=== PATIENT | female | born 1975 | race Caucasian/White ===

== ENCOUNTER 2016-12-06 08:18 | Inpatient (IN) ==
[2016-12-06] MEDS ORDERED: 0.9 % Sodium Chloride 1,000 ML IVC ONE (08:28)
[2016-12-06] MEDS ORDERED: *HR* Morphine 2 MG/ML SYRINGE IVP ONE (08:28)
[2016-12-06] MEDS ORDERED: Ondansetron 4 MG/2 ML VIAL IVP ONE ×2 (08:28→13:34)
[2016-12-06 08:36] LABS: Basophils # 0.1 K/mcL (0.0-0.2); Basophils % 0.5 %; Eosinophils # 0.3 K/mcL (0.0-0.6); Eosinophils % 2.5 %; Hematocrit 40.3 % (35.3-44.9); Hemoglobin 13.9 g/dL (11.5-15.4); Immature Granulocytes % 0.7 % (0-4); Lymphocytes # 3.2 K/mcL (0.6-4.6); Mean Corpuscular HGB Conc 34.5 g/dL (31.6-35.5); Mean Corpuscular Hemoglobin 29.4 pg (28.0-33.3); Mean Corpuscular Volume 85.4 fL (83.0-100.0); Mean Platelet Volume 7.8 fL (9.4-12.4); Monocytes # 1.1 K/mcL (0.0-1.3); Monocytes % 7.7 %; Platelet Count 282 K/mcL (140-400); Red Blood Count 4.72 M/mcL (3.82-4.97); Red Cell Distribution Width 11.8 % (11.5-14.5); Segmented Neutrophils % 65.6 %
--- NOTE | 2016-12-06 08:47 | Emergency Department Note ---
Disposition Clinical Impression: RUQ abdominal pain, Elevated LFTs Disposition: Admitted As Inpatient Condition: Fair Abdominal Pain HPI - General Stated Complaint: Chest Pain Time Seen by Provider: 12/06/16 08:19 Source: patient, family Mode of arrival: private vehicle Limitations: no limitations Nursing Notes Reviewed: Yes Vital Signs Reviewed: Yes - History of Present Illness Pt Subjective Complaint: abdominal pain Onset (ago): hour(s) Consistency: constant Location: RUQ, epigastric Pain Severity: severe Pain Scale: 10 Quality: stabbing, sharp Radiation: chest Improves with: nothing Worsens with: nothing Context: history of similar episodes Associated symptoms: Reports: nausea, vomiting (once; no blood, non-bilious). Denies: diarrhea (Last BM was yesterday - normal), fever, chills, constipation, dysuria, hematemesis, hematochezia, melena, hematuria, anorexia, syncope Treatments prior to arrival: none - Related Data LMP (females 10-50): other (S/P CLARK) Home Medications Medication Instructions Recorded Confirmed Buprenorphine HCl/Naloxone HCl 1 - 2 film SL DAILY 12/06/16 12/06/16 [Suboxone 8 mg-2 mg Sl Film] Docusate Sodium [Dok] 100 mg PO BID PRN 12/06/16 12/06/16 Ibuprofen [Advil] 200 mg PO Q6H PRN 12/06/16 12/06/16 Polyethylene Glycol 3350 [MiraLAX 1 scoop PO DAILY PRN 12/06/16 12/06/16 Powder Bulk 17.9 Oz] Previous Rx's Medication Instructions Recorded Cyclobenzaprine [Flexeril] 10 mg PO BID PRN #14 tablet 05/24/16 Ondansetron ODT [Zofran ODT] 4 mg SL Q4HR PRN #10 tab.rapdis 07/01/16 Allergies Allergy/AdvReac Type Severity Reaction Status Date / Time No Known Allergies Allergy Verified 12/06/16 13:33 All systems ED: reviewed and negative except as stated. Constitutional: Denies: fever, chills, weakness ENT ED: Denies: throat pain, dysphagia Cardiovascular: Reports: as per HPI, chest pain. Denies: palpitations, dyspnea on exertion, orthopnea, edema, syncope Respiratory: Denies: cough, dyspnea, wheezes, hemoptysis, stridor, sputum production Gastrointestinal: Reports: abdominal pain, nausea, vomiting. 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 Absent: scleral icterus, conjunctival injection, periorbital swelling - ENT ENT exam: mucous membranes moist - Neck Neck exam: Present: normal inspection, full ROM, trachea midline. Absent: meningismus - Chest Chest inspection: Present: normal inspection, symmetric chest wall rise. Absent : tenderness - Respiratory Respiratory exam: Present: normal lung sounds bilaterally. Absent: respiratory distress, wheezes, stridor - Cardiovascular Cardiovascular exam: Present: normal rhythm, tachycardia, normal heart sounds - Abdominal Exam Abdominal exam: Present: soft, tenderness, diminished bowel sounds, Pantoja's sign. Absent: distention, guarding, rebound, rigidity, organomegaly, tenderness at McBurney's Point, mass, pulsatile mass Abdominal tenderness: Present: RUQ, epigastrium - Extremities Exam Extremities exam: Present: normal inspection, full ROM. Absent: pedal edema - Back Exam Back exam: Present: normal inspection, full ROM. Absent: tenderness, CVA tenderness (R), CVA tenderness (L) - Neurological Exam Neurological exam: Present: alert, oriented X3, CN II-XII intact - Psychiatric Psychiatric exam: Present: normal affect, anxious - Skin Skin exam: Present: warm, dry, intact, normal color Course Course Narrative: Patient presents from home with significant other for evalaution of RUQ pain that radiates into the chest. It began acutely around 5am and has been constant since. She has had nausea and vomited once. She states that she has chronic constipation, but had a normal BM yesterday. Last oral intake was a "deli sandwhich" around 9pm. She denies dyspnea, cough, hemoptysis, syncope, fever, chills, dysuria, hematuria, or vaginal complaints. On exam she is anxious and was initially hyperventilliating. She is mildly tachycardic - sinus tach on ECG. She has tenderness in the RUQ and epigastrium. She has no pain with deep inspiration, has had no recent surgeries, long car trips, air travel, leg pain or swelling, and denies past history of DVT or PE. She has been seen in this ER for abdominal pain - Oct. Most recent CT was Oct 23 2016. During one of her previous visits she stated that she has had chronic diarrhea since cholecystectomy, but today she states that she has chronic constipation. She also states that several months ago she was seen for abdominal pain and was told that she was "backed up" and that that was the cause of her pain. She denies Hx of obstruction. She has had a hysterectomy. Case was discussed with Dr. Bain. The patient has been seen by Dr. Bain as well. The attending recommends adding a D-dimer. Labs, ECG and meds have been ordered. Will re-assess. Repeat ECG was done because patient was shaking during first ECG. The second shows sinus rhythm; rate in the 90's. No ectopy, no elevation or depression. Chest xray is normal. Labs show elevated LFT's and D-Dimer. Results discussed with Attending Physician. She recommends CTA of chest and CT of Abd and Pelvis. CTA and CT show no acute abnormalities. Hepatitis Panel and Acetaminophen level normal / negative. Patient appeared to be having biliary colic upon arrival. Will admit for further evaluation / MRCP. Case discussed with the hospitalist. - Reevaluation(s) Reevaluation #1: chest pain better, pain "in side" continues. Nausea is better Time: 09:40 Reevaluation #2: Pain better, vitals improved, labs show elevated white blood cell count and elevated liver enzymes. Hepatitis panel is negative. Acetaminophen level is negative. Concern is for obstruction. There is mild dilatation of the common bile duct seen on the CT. We will admit to medicine for further evaluation. Time: 12:15 Vital Signs Temperature 97.7 F 12/06/16 08:20 Pulse Rate 114 12/06/16 08:20 Respiratory Rate 24 12/06/16 08:20 Blood Pressure 141/111 12/06/16 08:20 O2 Sat by Pulse Oximetry 100 12/06/16 08:20 Temperature 97.7 F 12/06/16 08:20 Pulse Rate 84 12/06/16 12:23 Respiratory Rate 16 12/06/16 12:23 Blood Pressure 113/87 12/06/16 12:23 O2 Sat by Pulse Oximetry 98 12/06/16 12:23 Oxygen Delivery Oxygen Delivery Room Air Abdominal Pain - Medical Records Medical records reviewed: Yes I reviewed the patient's medical records. - Lab Data Lab results reviewed: Yes I reviewed the patient's lab results. Result diagrams: 12/06/16 08:25 12/06/16 08:25 Lab Results 12/06/16 12/06/16 12/06/16 Range/Units 08:25 08:25 08:25 WBC 13.7 H (4.3-11.1) K/mcL RBC 4.72 (3.82-4.97) M/mcL Hgb 13.9 (11.5-15.4) g/dL Hct 40.3 (35.3-44.9) % MCV 85.4 (83.0-100.0) fL MCH 29.4 (28.0-33.3) pg MCHC 34.5 (31.6-35.5) g/dL RDW 11.8 (11.5-14.5) % Plt Count 282 (140-400) K/mcL MPV 7.8 L (9.4-12.4) fL Immature Gran % 0.7 (0-4) % Seg Neutrophils % 65.6 % Lymphocytes % 23.0 % Monocytes % 7.7 % Eosinophils % 2.5 % Basophils % 0.5 % Neutrophils # 9.0 H (1.6-8.9) K/mcL Lymphocytes # 3.2 (0.6-4.6) K/mcL Monocytes # 1.1 (0.0-1.3) K/mcL Eosinophils # 0.3 (0.0-0.6) K/mcL Basophils # 0.1 (0.0-0.2) K/mcL D-Dimer 1012 H (0-500) ng/mLFEU Sodium 139 (136-145) mEq/L Potassium 3.4 L (3.5-4.5) mEq/L Chloride 105 (98-109) mEq/L Carbon Dioxide 21 (19-29) mEq/L BUN 9 (7-20) mg/dL Creatinine 0.83 (0.57-1.11) mg/dL Est GFR ( Amer) > 60 (> 60) Est GFR (Non-Af Amer) > 60 (> 60) BUN/Creatinine Ratio 11 (6-26) Glucose 125 H (70-99) mg/dL Calculated Osmolality 288 (280-300) Calcium 9.7 (8.6-10.8) mg/dL Total Bilirubin 1.2 (0.2-1.2) mg/dL Direct Bilirubin 0.7 H (0.0-0.5) mg/dL Indirect Bilirubin 0.5 (0.0-1.2) mg/dL AST 267 H (5-34) Units/L ALT 105 H (0-55) Units/L Alkaline Phosphatase 142 H (38-126) Units/L Serum Total Protein 7.8 (6.0-8.3) g/dL Albumin 3.9 (3.5-5.0) g/dL Globulin 3.9 H (2.4-3.5) g/dL Albumin/Globulin Ratio 1.0 L (1.1-2.2) Amylase 40 (25-125) Units/L Lipase 30 (8-78) Units/L Urine Color (Yellow) Urine Clarity (Clear) Urine pH (5.0-8.0) pH Units Ur Specific [place] (1.010-1.025) Urine Protein (Neg-Trace) mg/dL Urine Glucose (UA) (Normal) mg/dL Urine Ketones (Negative) mg/dL Urine Blood (Negative) Urine Nitrite (Negative) Urine Bilirubin (Negative) Urine Urobilinogen (Normal) mg/dL Ur Leukocyte Esterase (Negative) Urine Microscopic RBC (0-3) per hpf Urine Microscopic WBC (0-3) per hpf Ur Squamous Epith Cells (None-Few) per lpf Urine Bacteria (None-Few) per hpf Hyaline Casts (None-Few) per lpf Urine Mucus (Few) Urine Yeast (None Seen) per hpf Ur Culture Indicated? (NO) Acetaminophen < 1.0 L (10-30) mcg/mL Hepatitis A IgM Ab (Nonreactive) Hep Bs Antigen (Nonreactive) Hep B Core IgM Ab (Nonreactive) Hepatitis C Ab Screen (Nonreactive) 12/06/16 12/06/16 Range/Units 08:25 10:25 WBC (4.3-11.1) K/mcL RBC (3.82-4.97) M/mcL Hgb (11.5-15.4) g/dL Hct (35.3-44.9) % MCV (83.0-100.0) fL MCH (28.0-33.3) pg MCHC (31.6-35.5) g/dL RDW (11.5-14.5) % Plt Count (140-400) K/mcL MPV (9.4-12.4) fL Immature Gran % (0-4) % Seg Neutrophils % % Lymphocytes % % Monocytes % % Eosinophils % % Basophils % % Neutrophils # (1.6-8.9) K/mcL Lymphocytes # (0.6-4.6) K/mcL Monocytes # (0.0-1.3) K/mcL Eosinophils # (0.0-0.6) K/mcL Basophils # (0.0-0.2) K/mcL D-Dimer (0-500) ng/mLFEU Sodium (136-145) mEq/L Potassium (3.5-4.5) mEq/L Chloride (98-109) mEq/L Carbon Dioxide (19-29) mEq/L BUN (7-20) mg/dL Creatinine (0.57-1.11) mg/dL Est GFR ( Amer) (> 60) Est GFR (Non-Af Amer) (> 60) BUN/Creatinine Ratio (6-26) Glucose (70-99) mg/dL Calculated Osmolality (280-300) Calcium (8.6-10.8) mg/dL Total Bilirubin (0.2-1.2) mg/dL Direct Bilirubin (0.0-0.5) mg/dL Indirect Bilirubin (0.0-1.2) mg/dL AST (5-34) Units/L ALT (0-55) Units/L Alkaline Phosphatase (38-126) Units/L Serum Total Protein (6.0-8.3) g/dL Albumin (3.5-5.0) g/dL Globulin (2.4-3.5) g/dL Albumin/Globulin Ratio (1.1-2.2) Amylase (25-125) Units/L Lipase (8-78) Units/L Urine Color Dark Yellow (Yellow) Urine Clarity Slightly Hazy (Clear) Urine pH 6.0 (5.0-8.0) pH Units Ur Specific [place] > 1.030 H (1.010-1.025) Urine Protein 30 H (Neg-Trace) mg/dL Urine Glucose (UA) Normal (Normal) mg/dL Urine Ketones Negative (Negative) mg/dL Urine Blood Negative (Negative) Urine Nitrite Negative (Negative) Urine Bilirubin Moderate H (Negative) Urine Urobilinogen 4.0 H (Normal) mg/dL Ur Leukocyte Esterase Trace H (Negative) Urine Microscopic RBC 0-3 (0-3) per hpf Urine Microscopic WBC 0-3 (0-3) per hpf Ur Squamous Epith Cells Many H (None-Few) per lpf Urine Bacteria Few (None-Few) per hpf Hyaline Casts None Seen (None-Few) per lpf Urine Mucus Many H (Few) Urine Yeast Few H (None Seen) per hpf Ur Culture Indicated? YES A (NO) Acetaminophen (10-30) mcg/mL Hepatitis A IgM Ab Nonreactive (Nonreactive) Hep Bs Antigen Nonreactive (Nonreactive) Hep B Core IgM Ab Nonreactive (Nonreactive) Hepatitis C Ab Screen Nonreactive (Nonreactive) Laboratory Last Values WBC 13.7 K/mcL (4.3-11.1) H 12/06/16 08:25 RBC 4.72 M/mcL (3.82-4.97) 12/06/16 08:25 Hgb 13.9 g/dL (11.5-15.4) 12/06/16 08:25 Hct 40.3 % (35.3-44.9) 12/06/16 08:25 MCV 85.4 fL (83.0-100.0) 12/06/16 08:25 MCH 29.4 pg (28.0-33.3) 12/06/16 08:25 MCHC 34.5 g/dL (31.6-35.5) 12/06/16 08:25 RDW 11.8 % (11.5-14.5) 12/06/16 08:25 Plt Count 282 K/mcL (140-400) 12/06/16 08:25 MPV 7.8 fL (9.4-12.4) L 12/06/16 08:25 Immature Gran % 0.7 % (0-4) 12/06/16 08:25 Seg Neutrophils % 65.6 % 12/06/16 08:25 Lymphocytes % 23.0 % 12/06/16 08:25 Monocytes % 7.7 % 12/06/16 08:25 Eosinophils % 2.5 % 12/06/16 08:25 Basophils % 0.5 % 12/06/16 08:25 Neutrophils # 9.0 K/mcL (1.6-8.9) H 12/06/16 08:25 Lymphocytes # 3.2 K/mcL (0.6-4.6) 12/06/16 08:25 Monocytes # 1.1 K/mcL (0.0-1.3) 12/06/16 08:25 Eosinophils # 0.3 K/mcL (0.0-0.6) 12/06/16 08:25 Basophils # 0.1 K/mcL (0.0-0.2) 12/06/16 08:25 D-Dimer 1012 ng/mLFEU (0-500) H 12/06/16 08:25 Sodium 139 mEq/L (136-145) 12/06/16 08:25 Potassium 3.4 mEq/L (3.5-4.5) L 12/06/16 08:25 Chloride 105 mEq/L (98-109) 12/06/16 08:25 Carbon Dioxide 21 mEq/L (19-29) 12/06/16 08:25 BUN 9 mg/dL (7-20) 12/06/16 08:25 Creatinine 0.83 mg/dL (0.57-1.11) 12/06/16 08:25 Est GFR ( Amer) > 60 (> 60) 12/06/16 08:25 Est GFR (Non-Af Amer) > 60 (> 60) 12/06/16 08:25 BUN/Creatinine Ratio 11 (6-26) 12/06/16 08:25 Glucose 125 mg/dL (70-99) H 12/06/16 08:25 Calculated Osmolality 288 (280-300) 12/06/16 08:25 Calcium 9.7 mg/dL (8.6-10.8) 12/06/16 08:25 Total Bilirubin 1.2 mg/dL (0.2-1.2) 12/06/16 08:25 Direct Bilirubin 0.7 mg/dL (0.0-0.5) H 12/06/16 08:25 Indirect Bilirubin 0.5 mg/dL (0.0-1.2) 12/06/16 08:25 AST 267 Units/L (5-34) H 12/06/16 08:25 ALT 105 Units/L (0-55) H 12/06/16 08:25 Alkaline Phosphatase 142 Units/L (38-126) H 12/06/16 08:25 Serum Total Protein 7.8 g/dL (6.0-8.3) 12/06/16 08:25 Albumin 3.9 g/dL (3.5-5.0) 12/06/16 08:25 Globulin 3.9 g/dL (2.4-3.5) H 12/06/16 08:25 Albumin/Globulin Ratio 1.0 (1.1-2.2) L 12/06/16 08:25 Amylase 40 Units/L (25-125) 12/06/16 08:25 Lipase 30 Units/L (8-78) 12/06/16 08:25 Urine Color Dark Yellow (Yellow) 12/06/16 10:25 Urine Clarity Slightly Hazy (Clear) 12/06/16 10:25 Urine pH 6.0 pH Units (5.0-8.0) 12/06/16 10:25 Ur Specific [place] > 1.030 (1.010-1.025) H 12/06/16 10:25 Urine Protein 30 mg/dL (Neg-Trace) H 12/06/16 10:25 Urine Glucose (UA) Normal mg/dL (Normal) 12/06/16 10:25 Urine Ketones Negative mg/dL (Negative) 12/06/16 10:25 Urine Blood Negative (Negative) 12/06/16 10:25 Urine Nitrite Negative (Negative) 12/06/16 10:25 Urine Bilirubin Moderate (Negative) H 12/06/16 10:25 Urine Urobilinogen 4.0 mg/dL (Normal) H 12/06/16 10:25 Ur Leukocyte Esterase Trace (Negative) H 12/06/16 10:25 Urine Microscopic RBC 0-3 per hpf (0-3) 12/06/16 10:25 Urine Microscopic WBC 0-3 per hpf (0-3) 12/06/16 10:25 Ur Squamous Epith Cells Many per lpf (None-Few) H 12/06/16 10:25 Urine Bacteria Few per hpf (None-Few) 12/06/16 10:25 Hyaline Casts None Seen per lpf (None-Few) 12/06/16 10:25 Urine Mucus Many (Few) H 12/06/16 10:25 Urine Yeast Few per hpf (None Seen) H 12/06/16 10:25 Ur Culture Indicated? YES (NO) A 12/06/16 10:25 Acetaminophen < 1.0 mcg/mL (10-30) L 12/06/16 08:25 Hepatitis A IgM Ab Nonreactive (Nonreactive) 12/06/16 08:25 Hep Bs Antigen Nonreactive (Nonreactive) 12/06/16 08:25 Hep B Core IgM Ab Nonreactive (Nonreactive) 12/06/16 08:25 Hepatitis C Ab Screen Nonreactive (Nonreactive) 12/06/16 08:25 - Radiology Data Radiology results reviewed: Yes I reviewed the patient's radiology results. Chest X-Ray 12/06/16 08:28 IMPRESSION: Negative chest x-ray. No evidence of acute cardiopulmonary disease. D/ / Kiel Suero MD / Kiel Suero MD Interpreting Provider: Kiel Suero MD Abdomen/Pelvis CT 12/06/16 09:35 IMPRESSION: 1. No acute intra-abdominal abnormality. 2. No acute intrapelvic abnormality. 3. Stable biliary ductal dilatation which can be seen in a postcholecystectomy state. D/ / Matt Gaines MD / Matt Gaines MD Interpreting Provider: Matt Gaines MD Chest CTA 12/06/16 09:35 IMPRESSION: No evidence of pulmonary embolism or acute pulmonary abnormality. D/ / Marquis Arroyo MD / Marquis Arroyo MD Interpreting Provider: Marquis Arroyo MD - EKG Data EKG attestation: Yes I reviewed and interpreted this EKG. EKG shows normal: sinus rhythm Rate: tachycardia Rhythm: NSR Anthony/QRS: normal When compared to previous EKG there are: no significant changes Interpretation: normal EKG
[2016-12-06 08:54] LABS: Alanine Aminotransferase 105 Units/L (0-55); Albumin 3.9 g/dL (3.5-5.0); Alkaline Phosphatase 142 Units/L (38-126); Amylase 40 Units/L (25-125); Aspartate Amino Transferase 267 Units/L (5-34); BUN/Creatinine Ratio 11 (6-26); Bilirubin,Direct 0.7 mg/dL (0.0-0.5); Bilirubin,Indirect 0.5 mg/dL (0.0-1.2); Bilirubin,Total 1.2 mg/dL (0.2-1.2); Blood Urea Nitrogen 9 mg/dL (7-20); Calcium 9.7 mg/dL (8.6-10.8); Carbon Dioxide 21 mEq/L (19-29); Chloride 105 mEq/L (98-109); Globulin 3.9 g/dL (2.4-3.5); Glucose 125 mg/dL (70-99); Lipase 30 Units/L (8-78); Osmolality,Calculated 288 (280-300); Potassium 3.4 mEq/L (3.5-4.5); Sodium 139 mEq/L (136-145); Total Protein 7.8 g/dL (6.0-8.3); eGFR For African Americans > 60 (> 60); eGFR For Non-African Americans > 60 (> 60)
--- NOTE | 2016-12-06 08:55 | Emergency Department Note ---
START Narrative - START START: For this encounter, I have reviewed the KEYING MACHINE OPERATOR or PA documentation, treatment plan, and medical decision making; and I have had face to face time with this patient. Patient emergency department complaining of chest and abdominal pain. Patient states she woke up about 5 AM this morning and had pain in the right upper quadrant of her abdomen. Nonradiating. States she has had her gallbladder removed in the past. Also by the vomiting. No fever. No pain or swelling in her legs. On examination she is shaking and uncomfortable. Tachycardic. Plan. Patient has had a prior cholecystectomy. We will check abdominal labs. D-dimer she is tachycardic. EKG is sinus tach. Pain meds and reevaluate. Patient with elevated LFTs. Inhrahepatic dilitation. Has had prior hali. CTA done for RUQ/lower chest pain to rule out PE since d-dimer was elevated. Admitted to medicine.
[2016-12-06] MEDS ORDERED: *HR* HYDROmorphone (PF) 1 MG/ML SYRINGE IV ONE ×2 (09:40→13:22)
[2016-12-06 10:29] LABS: Bilirubin,Urine Moderate (Negative); Blood,Urine Negative (Negative); Glucose,Urine (UA) Normal (Normal); Ketones,Urine Negative (Negative); Leukocyte Esterase,Urine Trace (Negative); Nitrite,Urine Negative (Negative); Protein,Urine 30 mg/dL (Neg-Trace); Specific Gravity,Urine > 1.030 (1.010-1.025)
[2016-12-06 10:32] LABS: Hyaline Casts,Urine None Seen per lpf (None-Few); RBC,Urine 0-3 per hpf (0-3); Squamous Epithelial Cell,Urine Many per lpf (None-Few); WBC,Urine 0-3 per hpf (0-3)
[2016-12-06 10:36] LABS: Clarity,Urine Slightly Hazy (Clear); Color,Urine Dark Yellow (Yellow)
[2016-12-06 10:54] LABS: Bacteria,Urine Few per hpf (None-Few); Mucus,Urine Many (Few); Yeast,Urine Few per hpf (None Seen)
[2016-12-06 11:33] LABS: Acetaminophen < 1.0 mcg/mL (10-30)
[2016-12-06 11:58] LABS: Hepatitis A Antibody IgM Nonreactive (Nonreactive); Hepatitis B Core IgM Nonreactive (Nonreactive); Hepatitis B Surface Antigen Nonreactive (Nonreactive); Hepatitis C Virus Antibody Nonreactive (Nonreactive)
--- NOTE | 2016-12-06 13:59 | Internal Med History&Physical ---
Date of Encounter: 12/06/16 Time of Encounter: 13:56 Assessment and Plan (1) Restless leg syndrome Current visit: Yes Status: Acute Continue Flexeril (2) DVT prophylaxis Current visit: Yes Status: Acute Encourage ambulation. (3) RUQ abdominal pain Current visit: Yes Status: Acute We will treat her with IV Dilaudid. Transition to oral meds as tolerated. IV Zofran for nausea. (4) Elevated LFTs Current visit: Yes Status: Acute Could be due to acetaminophen toxicity, viral hepatitis, alcohol abuse. Her Tylenol level is normal and she denies frequent use of Tylenol. I will hepatitis panel is negative and she has no risk factors she has she has no recent blood transfusions, no IV drug use or tattoos. She denies alcohol abuse. Elevated LFTs could also be secondary to obstructive Cholelithiasis in spite of her history of cholecystectomy, possible obstructing cholangiocarcinoma , less likely. Colon wall and obtain an ultrasound of the liver, we will obtain an MRCP to investigate the possibility of cholelithiasis or other obstructive process. We will consult gastroenterology. She is at high risk for morbidity and mortality and complications due to treatment for her pain with IV opiates. (5) Postcholecystectomy syndrome Current visit: Yes Status: Acute Internal Medicine - H&P: HPI Chief complaint: abdominal pain Admitted From: Emergency Dept Plans for Post Hospital Care: Home History of present illness: Ms. Partida is a 41 year old female with past surgical history of cholecystectomy 2 years ago done at [facility] who presents to the hospital with abdominal pain. She states the pain woke her up from sleep at 5 this morning, it was located in the right upper quadrant, radiating to the chest, 10/10 in intensity , pressure-like, associated with nausea and vomiting. The pain lasted for several hours until he was finally relieved with IV pain medication which she received in the emergency department. She states that she has had similar abdominal pain in the past but it would usually ease off. This time it was unremitting and therefore she presented to the hospital. Workup done in the emergency department revealed elevated LFTs. A 10 point review of systems was performed and positives are listed above additionally positive for urinary frequency for the last 1 week and positive for chronic restless leg syndrome. Past medical history none Past surgical history: Cholecystectomy and hysterectomy Social history: Patient is a lifelong nonsmoker, denies alcohol and drug use. She is a [id number] mom. Family history: Positive for coronary artery disease and heart failure in the patient's father is positive for colon cancer in the patient's mother. Past Med Surg Social Fam HX - Past Medical History Medical history: no medical history Psychiatric history: no psych history - Past Surgical History Surgical History: hysterectomy - Social History Smoking Status: Never smoker Smokeless Tobacco Status: No Alcohol use: none Drug use: none Internal Medicine - H&P: Meds Cyclobenzaprine [Flexeril] 10 mg PO BID PRN #14 tablet 05/24/16 [Rx] Ondansetron ODT [Zofran ODT] 4 mg SL Q4HR PRN #10 tab.rapdis 07/01/16 [Rx] Buprenorphine HCl/Naloxone HCl [Suboxone 8 mg-2 mg Sl Film] 1 - 2 film SL DAILY 12/06/16 [History] Docusate Sodium [Dok] 100 mg PO BID PRN 12/06/16 [History] Ibuprofen [Advil] 200 mg PO Q6H PRN 12/06/16 [History] Polyethylene Glycol 3350 [MiraLAX Powder Bulk 17.9 Oz] 1 scoop PO DAILY PRN 11/19 [History] Allergies No Known Allergies Allergy (Verified 12/06/16 13:33) All Systems PM: A 10-system review of systems was performed and is negative for pertinent findings except as documented above in the HPI. - Constitutional Vitals: Temp Pulse Resp BP Pulse Ox 97.7 F 84 16 115/62 97 12/06/16 08:20 12/06/16 13:42 12/06/16 13:42 12/06/16 13:42 12/06/16 13:42 General appearance: Present: mild distress, A&O X 3 - Eye Eye exam: Present: PERRL, conjuntiva pink, sclera anicteric Pupils: Present: PERRL - Respiratory Respiratory exam: Present: CTAB. Absent: accessory muscle use, rales, rhonchi, wheezes - Cardiovascular Cardiovascular exam: Present: RRR, +S1, +S2. Absent: diastolic murmur, gallop, rubs, systolic murmur - GI/Abdominal GI/Abdominal exam: Present: normal bowel sounds, soft, tenderness (Tender to palpation the right upper quadrant with no guarding or rebound tenderness), no peritoneal signs. Absent: distended - Extremities Exam Extremities exam: Present: warm, radial pulses palpable and symetrical. Absent : calf tenderness, cyanotic, pedal edema - Neurological Exam Neurological exam: Present: CN II-XII intact, oriented X3, no focal deficits. Absent: pronater drift, facial droop, speech deficit - Skin Skin exam: Present: dry, intact Internal Med - H&P Results - Labs CBC & Chem 7: 12/06/16 08:25 12/06/16 08:25 Labs: Chart review her LFTs in 10/22/2016 were normal. Direct bilirubin at that time was 0.1. Currently at significantly elevated at 0.7. AST was and October 2016, now 267.
[2016-12-06] MEDS ORDERED: Acetaminophen 325 MG TABLET PO PRN (16:43)
[2016-12-06] MEDS ORDERED: Naloxone 0.4 MG/ML INJ IVP PRN (16:43)
[2016-12-06] MEDS: *HR* Morphine 2 MG/ML SYRINGE IVP PRN (17:22)
[2016-12-06] MEDS: Ondansetron 4 MG/2 ML VIAL IVP PRN (17:28)
[2016-12-06 18:01] LABS: BUN/Creatinine Ratio 13 (6-26); Blood Urea Nitrogen 9 mg/dL (7-20); Calcium 8.4 mg/dL (8.6-10.8); Carbon Dioxide 22 mEq/L (19-29); Chloride 108 mEq/L (98-109); Glucose 114 mg/dL (70-99); Osmolality,Calculated 284 (280-300); Potassium 3.5 mEq/L (3.5-4.5); Sodium 137 mEq/L (136-145); eGFR For African Americans > 60 (> 60); eGFR For Non-African Americans > 60 (> 60)
[2016-12-06] MEDS: D5% in 0.45% NACL 1,000 ML IVC SCH (18:05)
[2016-12-06] MEDS: Pantoprazole 40 MG VIAL IVP SCH (18:05)
[2016-12-06] MEDS: *HR* OxyCODONE Immed Rel 5 MG TABLET PO PRN (20:09)
[2016-12-07] MEDS: *HR* Morphine 2 MG/ML SYRINGE IVP PRN ×6 (00:21→22:27)
[2016-12-07 00:55] LABS: Basophils # 0.1 K/mcL (0.0-0.2); Basophils % 0.6 %; Eosinophils # 0.2 K/mcL (0.0-0.6); Eosinophils % 2.6 %; Hematocrit 35.7 % (35.3-44.9); Immature Granulocytes % 0.7 % (0-4); Lymphocytes % 11.6 %; Mean Corpuscular HGB Conc 33.9 g/dL (31.6-35.5); Mean Corpuscular Hemoglobin 29.5 pg (28.0-33.3); Mean Corpuscular Volume 87.1 fL (83.0-100.0); Mean Platelet Volume 8.1 fL (9.4-12.4); Monocytes # 0.7 K/mcL (0.0-1.3); Neutrophils # 6.4 K/mcL (1.6-8.9); Platelet Count 215 K/mcL (140-400); Red Cell Distribution Width 11.8 % (11.5-14.5); Segmented Neutrophils % 76.5 %
[2016-12-07 01:00] LABS: Hemoglobin 12.1 g/dL (11.5-15.4)
[2016-12-07 01:06] LABS: Albumin 3.4 g/dL (3.5-5.0); Albumin/Globulin Ratio 0.9 (1.1-2.2); Bilirubin,Indirect 1.2 mg/dL (0.0-1.2); Bilirubin,Total 1.6 mg/dL (0.2-1.2); Globulin 3.6 g/dL (2.4-3.5)
[2016-12-07 01:09] LABS: Bilirubin,Direct 0.4 mg/dL (0.0-0.5)
[2016-12-07] MEDS: *HR* OxyCODONE Immed Rel 5 MG TABLET PO PRN ×2 (03:59→22:27)
[2016-12-07] MEDS: Ondansetron 4 MG/2 ML VIAL IVP PRN ×2 (03:59→20:47)
[2016-12-07] MEDS: D5% in 0.45% NACL 1,000 ML IVC SCH ×2 (05:22→20:48)
[2016-12-07] MEDS: Pantoprazole 40 MG VIAL IVP SCH (08:16)
--- NOTE | 2016-12-07 10:17 | Internal Med Progress Note ---
Date of Encounter: 12/07/16 Time of Encounter: 10:17 - Assessment and plan (1) Restless leg syndrome Current Visit: Yes Status: Acute (2) DVT prophylaxis Current Visit: Yes Status: Acute (3) RUQ abdominal pain Current Visit: Yes Status: Acute (4) Elevated LFTs Current Visit: Yes Status: Acute (5) Postcholecystectomy syndrome Current Visit: Yes Status: Acute - Constitutional Vitals: Temp Pulse Resp BP Pulse Ox 98.7 F 80 17 106/70 97 12/07/16 07:06 12/07/16 07:06 12/07/16 07:06 12/07/16 07:06 12/07/16 07:06 General appearance: Present: mild distress, A&O X 3 - Eye Eye exam: Present: PERRL, conjuntiva pink, sclera anicteric Pupils: Present: PERRL - Respiratory Respiratory exam: Present: CTAB. Absent: accessory muscle use, rales, rhonchi, wheezes - Cardiovascular Cardiovascular exam: Present: RRR, +S1, +S2. Absent: diastolic murmur, gallop, rubs, systolic murmur - GI/Abdominal GI/Abdominal exam: Present: normal bowel sounds, soft, no peritoneal signs. Absent: distended, tenderness - Extremities Exam Extremities exam: Present: warm, radial pulses palpable and symetrical. Absent : calf tenderness, cyanotic, pedal edema - Skin Skin exam: Present: dry, intact Internal Medicine: Result - Labs CBC & Chem 7: 12/07/16 00:38 12/06/16 17:01 Labs: Short CBC 12/07/16 Range/Units 00:38 WBC 8.4 (4.3-11.1) K/mcL Hgb 12.1 D (11.5-15.4) g/dL Hct 35.7 (35.3-44.9) % Plt Count 215 (140-400) K/mcL Neutrophils # 6.4 (1.6-8.9) K/mcL BMP 12/06/16 17:01 Sodium 137 Potassium 3.5 Chloride 108 Carbon Dioxide 22 BUN 9 Creatinine 0.69 Glucose 114 H Calcium 8.4 L Cardiac Enzymes 12/06/16 12/07/16 Range/Units 17:01 00:38 Troponin I 0.00 0.00 (0-0.03) ng/mL Liver Function 12/07/16 Range/Units 00:38 Total Bilirubin 1.6 H (0.2-1.2) mg/dL Direct Bilirubin 0.4 (0.0-0.5) mg/dL AST 169 H (5-34) Units/L ALT 172 H (0-55) Units/L Alkaline Phosphatase 123 (38-126) Units/L Albumin 3.4 L (3.5-5.0) g/dL - ABG Interpretation ABG results: PT/INR, D-dimer D-Dimer 1012 ng/mLFEU (0-500) H 12/06/16 08:25 Consult Discharge Plan - Plan Referrals: Evens Pascual MD [Non-Partnered Physician] -
--- NOTE | 2016-12-07 10:38 | Electrocardiograph Report ---
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
--- NOTE | 2016-12-07 10:38 | Electrocardiograph Report ---
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
--- NOTE | 2016-12-07 11:50 | Gastroenterology Consult Note ---
<Freddy Lou Santana - Last Filed: 12/07/16 11:48> Date of Encounter: 12/07/16 Time of Encounter: 10:50 - Assessment and plan (1) Choledocholithiasis Current Visit: Yes Status: Acute Assessment and plan: MRCP shows choledocholithiasis with a single 0.6 cm x 0.2 cm stone in the distal common duct, mild to moderate intrahepatic and minimal extrahepatic biliary dilation likely within normal limits given prior cholecystectomy. Plan for ERCP, keep NPO. (2) RUQ abdominal pain Current Visit: Yes Status: Acute Assessment and plan: secondary to choledocholithiasis. - Time Spent With Patient Total time spent is greater than 50% in coordination of care (as documented) at patient's floor/unit and/or counseling patient: GI History of Present Illness - Data of Consult Patient: new to practice Consult date: 12/07/16 Requesting Physician: Joseph Fuentes MD - Consult Narrative Reason for consult: Elevated LFTs History of present illness: Ms. Partida is a 41 year old female with history of cholecystectomy 2 years ago at [facility] who presented to the ED with complaints of abdominal pain. The pain woke her up from sleep at 5 in the morning and is located in the right upper quadrant radiating to the chest. The pain is associated with nausea and vomiting. The pain was relieved with IV pain medication she received in the ED. CT A/P with no acute intra-abdominal or intrapelvic abnormality. Admission labs revealed TB 1.2, DB 0.5, AST 267, ALT 105, alkaline phosphatase 142. Hepatitis profile was negative. Procedures: Colonoscopy 09/04/2012 Dr. Bedolla: Segmental moderate inflammation was found in the sigmoid colon, in the descending colon and in the splenic flexure secondary to left-sided colitis. Recommended repeat cscope in 1 year with 2 day prep. NSAIDs: Ibuprofen Anticoagulation: None Past Med Surg Social Fam HX - Past Medical History Medical history: no medical history Psychiatric history: no psych history - Past Surgical History Surgical History: hysterectomy - Social History Smoking Status: Never smoker Smokeless Tobacco Status: No Alcohol use: none Drug use: none - Family History Father Hx Family Cardiac Disorders: Yes - Gastrointestinal Gastrointestinal: Present: as per HPI - Constitutional Constitutional: as per HPI - EENT Eyes: as per HPI Ears: Present: as per HPI Nose, mouth and throat: Present: as per HPI - Cardiovascular Cardiovascular ROS: Present: as per HPI - Respiratory Respiratory IM: Present: as per HPI - Genitourinary Genitourinary: Absent: change in color, Urinary frequency - Neurological ROS Neurological GI: Present: as per HPI - Hematologic/Lymphatic Hematologic/Lymphatic pediatric: Present: as per HPI - Musculoskeletal Musculoskeletal ROS GI: Present: as per HPI - Integumentary Integumentary GI: Present: as per HPI - Psychiatric ROS Psychiatric GI: Present: as per HPI - Endocrine Endocrine IM: Present: as per HPI - Constitutional Vitals: Temp Pulse Resp BP Pulse Ox 98.7 F 80 17 106/70 97 12/07/16 07:06 12/07/16 07:06 12/07/16 07:06 12/07/16 07:06 12/07/16 07:06 General appearance: Present: cooperative, A&O X 3, no acute distress, answers questions appropriately - Head Head exam: Present: atraumatic, normocephalic - Eye Eye exam: Present: normal appearance, sclera anicteric - ENT ENT exam: Present: mucous membranes dry - Neck Neck exam general surgery: Present: normal inspection, trachea midline - Respiratory Respiratory exam: Present: CTAB. Absent: rales, rhonchi, wheezes - Cardiovascular Cardiovascular exam: Present: RRR, +S1, +S2 - GI/Abdominal GI/Abdominal exam: Present: soft, tenderness (RUQ), no peritoneal signs. Absent : distended, firm, guarding - Rectal Rectal exam: Present: deferred - Extremities Exam Extremities exam: Present: warm - Neurological Exam Neurological exam: Present: no focal deficits - Psychiatric Psychiatric exam: Present: normal affect, normal mood - Skin Skin exam: Present: dry, intact, normal color, warm Results - Labs CBC & Chem 7: 12/07/16 00:38 12/06/16 17:01 Labs: Last Result Calcium 8.4 mg/dL (8.6-10.8) L 12/06/16 17:01 Troponin I 0.00 ng/mL (0-0.03) 12/07/16 00:38 Entire Visit Hgb 12.1 g/dL (11.5-15.4) D 12/07/16 00:38 Hct 35.7 % (35.3-44.9) 12/07/16 00:38 Total Bilirubin 1.6 mg/dL (0.2-1.2) H 12/07/16 00:38 AST 169 Units/L (5-34) H 12/07/16 00:38 ALT 172 Units/L (0-55) H 12/07/16 00:38 Amylase 40 Units/L (25-125) 12/06/16 08:25 Lipase 30 Units/L (8-78) 12/06/16 08:25 Acetaminophen < 1.0 mcg/mL (10-30) L 12/06/16 08:25 - ABG ABG results: PT/INR, D-dimer D-Dimer 1012 ng/mLFEU (0-500) H 12/06/16 08:25 Consult Discharge Plan - Plan Referrals: Evens Pascual MD [Non-Partnered Physician] - <Sondra Gonzales - Last Filed: 12/07/16 12:48> Date of Encounter: 12/07/16 Time of Encounter: 12:00 - Time Spent With Patient Total time spent is greater than 50% in coordination of care (as documented) at patient's floor/unit and/or counseling patient: GI History of Present Illness - Data of Consult Requesting Physician: Joseph Fuentes MD - Consult Narrative History of present illness: Ms. Partida is a 41 year old female - Constitutional Vitals: Temp Pulse Resp BP Pulse Ox 98 F 71 14 107/70 97 12/07/16 11:48 12/07/16 11:48 12/07/16 11:48 12/07/16 11:48 12/07/16 11:48 Results - Labs CBC & Chem 7: 12/07/16 00:38 12/06/16 17:01 Labs: Last Result Calcium 8.4 mg/dL (8.6-10.8) L 12/06/16 17:01 Troponin I 0.00 ng/mL (0-0.03) 12/07/16 00:38 Entire Visit Hgb 12.1 g/dL (11.5-15.4) D 12/07/16 00:38 Hct 35.7 % (35.3-44.9) 12/07/16 00:38 Total Bilirubin 1.6 mg/dL (0.2-1.2) H 12/07/16 00:38 AST 169 Units/L (5-34) H 12/07/16 00:38 ALT 172 Units/L (0-55) H 12/07/16 00:38 Amylase 40 Units/L (25-125) 12/06/16 08:25 Lipase 30 Units/L (8-78) 12/06/16 08:25 Acetaminophen < 1.0 mcg/mL (10-30) L 12/06/16 08:25 - ABG ABG results: PT/INR, D-dimer D-Dimer 1012 ng/mLFEU (0-500) H 12/06/16 08:25 - Attending Attestation I examined this patient and my medical decision-making was reviewed with the CARPET CUTTER/PA/Advanced Practice Nurse/Resident Physician. I agree with the documented findings, disposition and treatment plan as described except to the extent set forth below. Patient with the choledocholithiasis we will do a EUS ERCP procedure including risks discussed with the patient. EUS to make sure there is no other stone and CBD.
[2016-12-07] MEDS ORDERED: Lidocaine -MPF 2% 5 ML VIAL INFILT ONE (12:26)
[2016-12-07] MEDS ORDERED: Ondansetron 4 MG/2 ML VIAL IVP ONE (12:26)
[2016-12-07] MEDS ORDERED: *HR* Propofol 200 MG/20 ML VIAL IVP ONE (12:26)
[2016-12-07] MEDS ORDERED: Lidocaine -MPF 4% 5 ML AMPUL TP ONE (12:26)
[2016-12-07] MEDS ORDERED: Dexamethasone 120 MG/30 ML MDV IVP ONE (12:26)
[2016-12-07] MEDS ORDERED: *HR* Rocuronium Bromide 50 MG/5 ML VIAL IVC ONE (12:26)
--- NOTE | 2016-12-07 14:15 | Anesthesia Evaluation PreOp ---
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 - this med for the OTHER Gaelue 1975) Medications and Allergies Cyclobenzaprine [Flexeril] 10 mg PO BID PRN #14 tablet 05/24/16 [Rx] Ondansetron ODT [Zofran ODT] 4 mg SL Q4HR PRN #10 tab.rapdis 07/01/16 [Rx] Docusate Sodium [Dok] 100 mg PO BID PRN 12/06/16 [History] Ibuprofen [Advil] 200 mg PO Q6H PRN 12/06/16 [History] Polyethylene Glycol 3350 [MiraLAX Powder Bulk 17.9 Oz] 1 scoop PO DAILY PRN 11/19 [History] Allergies No Known Allergies Allergy (Verified 12/06/16 13:33) - Meds/Allergy Pre-op Review Medications Reviewed: Yes Allergies Reviewed: Yes Beta Blockers on Current Med List: No Anesthesia Results - Labs 12/09/16 05:12 12/09/16 05:12 Laboratory Results WBC 8.4 K/mcL (4.3-11.1) 12/07/16 00:38 RBC 4.10 M/mcL (3.82-4.97) 12/07/16 00:38 Hgb 12.1 g/dL (11.5-15.4) D 12/07/16 00:38 Hct 35.7 % (35.3-44.9) 12/07/16 00:38 MCV 87.1 fL (83.0-100.0) 12/07/16 00:38 MCH 29.5 pg (28.0-33.3) 12/07/16 00:38 MCHC 33.9 g/dL (31.6-35.5) 12/07/16 00:38 RDW 11.8 % (11.5-14.5) 12/07/16 00:38 Plt Count 215 K/mcL (140-400) 12/07/16 00:38 MPV 8.1 fL (9.4-12.4) L 12/07/16 00:38 Immature Gran % 0.7 % (0-4) 12/07/16 00:38 Seg Neutrophils % 76.5 % 12/07/16 00:38 Lymphocytes % 11.6 % 12/07/16 00:38 Monocytes % 8.0 % 12/07/16 00:38 Eosinophils % 2.6 % 12/07/16 00:38 Basophils % 0.6 % 12/07/16 00:38 Neutrophils # 6.4 K/mcL (1.6-8.9) 12/07/16 00:38 Lymphocytes # 1.0 K/mcL (0.6-4.6) 12/07/16 00:38 Monocytes # 0.7 K/mcL (0.0-1.3) 12/07/16 00:38 Eosinophils # 0.2 K/mcL (0.0-0.6) 12/07/16 00:38 Basophils # 0.1 K/mcL (0.0-0.2) 12/07/16 00:38 D-Dimer 1012 ng/mLFEU (0-500) H 12/06/16 08:25 Sodium 137 mEq/L (136-145) 12/06/16 17:01 Potassium 3.5 mEq/L (3.5-4.5) 12/06/16 17:01 Chloride 108 mEq/L (98-109) 12/06/16 17:01 Carbon Dioxide 22 mEq/L (19-29) 12/06/16 17:01 BUN 9 mg/dL (7-20) 12/06/16 17:01 Creatinine 0.69 mg/dL (0.57-1.11) 12/06/16 17:01 Est GFR ( Amer) > 60 (> 60) 12/06/16 17:01 Est GFR (Non-Af Amer) > 60 (> 60) 12/06/16 17:01 BUN/Creatinine Ratio 13 (6-26) 12/06/16 17:01 Glucose 114 mg/dL (70-99) H 12/06/16 17:01 POC Glucose 88 (58-89) 12/07/16 11:47 Calculated Osmolality 284 (280-300) 12/06/16 17:01 Calcium 8.4 mg/dL (8.6-10.8) L 12/06/16 17:01 Total Bilirubin 1.6 mg/dL (0.2-1.2) H 12/07/16 00:38 Direct Bilirubin 0.4 mg/dL (0.0-0.5) 12/07/16 00:38 Indirect Bilirubin 1.2 mg/dL (0.0-1.2) 12/07/16 00:38 AST 169 Units/L (5-34) H 12/07/16 00:38 ALT 172 Units/L (0-55) H 12/07/16 00:38 Alkaline Phosphatase 123 Units/L (38-126) 12/07/16 00:38 Troponin I 0.00 ng/mL (0-0.03) 12/07/16 00:38 Serum Total Protein 7.0 g/dL (6.0-8.3) 12/07/16 00:38 Albumin 3.4 g/dL (3.5-5.0) L 12/07/16 00:38 Globulin 3.6 g/dL (2.4-3.5) H 12/07/16 00:38 Albumin/Globulin Ratio 0.9 (1.1-2.2) L 12/07/16 00:38 Amylase 40 Units/L (25-125) 12/06/16 08:25 Lipase 30 Units/L (8-78) 12/06/16 08:25 Urine Color Dark Yellow (Yellow) 12/06/16 10:25 Urine Clarity Slightly Hazy (Clear) 12/06/16 10:25 Urine pH 6.0 pH Units (5.0-8.0) 12/06/16 10:25 Ur Specific [place] > 1.030 (1.010-1.025) H 12/06/16 10:25 Urine Protein 30 mg/dL (Neg-Trace) H 12/06/16 10:25 Urine Glucose (UA) Normal mg/dL (Normal) 12/06/16 10:25 Urine Ketones Negative mg/dL (Negative) 12/06/16 10:25 Urine Blood Negative (Negative) 12/06/16 10:25 Urine Nitrite Negative (Negative) 12/06/16 10:25 Urine Bilirubin Moderate (Negative) H 12/06/16 10:25 Urine Urobilinogen 4.0 mg/dL (Normal) H 12/06/16 10:25 Ur Leukocyte Esterase Trace (Negative) H 12/06/16 10:25 Urine Microscopic RBC 0-3 per hpf (0-3) 12/06/16 10:25 Urine Microscopic WBC 0-3 per hpf (0-3) 12/06/16 10:25 Ur Squamous Epith Cells Many per lpf (None-Few) H 12/06/16 10:25 Urine Bacteria Few per hpf (None-Few) 12/06/16 10:25 Hyaline Casts None Seen per lpf (None-Few) 12/06/16 10:25 Urine Mucus Many (Few) H 12/06/16 10:25 Urine Yeast Few per hpf (None Seen) H 12/06/16 10:25 Ur Culture Indicated? YES (NO) A 12/06/16 10:25 Acetaminophen < 1.0 mcg/mL (10-30) L 12/06/16 08:25 Hepatitis A IgM Ab Nonreactive (Nonreactive) 12/06/16 08:25 Hep Bs Antigen Nonreactive (Nonreactive) 12/06/16 08:25 Hep B Core IgM Ab Nonreactive (Nonreactive) 12/06/16 08:25 Hepatitis C Ab Screen Nonreactive (Nonreactive) 12/06/16 08:25 Impressions Chest X-Ray 12/06/16 08:28 IMPRESSION: Negative chest x-ray. No evidence of acute cardiopulmonary disease. D/ / Kiel Suero MD / Kiel Suero MD Interpreting Provider: Kiel Suero MD Abdomen/Pelvis CT 12/06/16 09:35 IMPRESSION: 1. No acute intra-abdominal abnormality. 2. No acute intrapelvic abnormality. 3. Stable biliary ductal dilatation which can be seen in a postcholecystectomy state. D/ / Matt Gaines MD / Matt Gaines MD Interpreting Provider: Matt Gaines MD Chest CTA 12/06/16 09:35 IMPRESSION: No evidence of pulmonary embolism or acute pulmonary abnormality. D/ / Marquis Arroyo MD / Marquis Arroyo MD Interpreting Provider: Marqius Arroyo MD Abdomen MRI 12/06/16 13:22 IMPRESSION: 1. Choledocholithiasis with a single 0.6 cm x 0.2 cm stone in the distal common duct. 2. Mild to moderate intrahepatic and minimal extrahepatic biliary dilation is likely within normal limits given prior cholecystectomy. The findings do not suggest obstruction from the stone. 3. Mild hepatomegaly with mild to moderate hepatic steatosis. D/ / Freddy La MD / Freddy La MD Interpreting Provider: Freddy La MD Vital Signs Temp Pulse Resp BP Pulse Ox 12/09/16 11:07 98.1 F 89 18 113/76 94 12/09/16 07:59 98.7 F 82 18 123/82 100 12/09/16 04:26 98.5 F 75 14 102/69 97 12/08/16 23:42 98.3 F 72 14 111/76 98 12/08/16 20:06 98.3 F 79 15 96/65 96 12/08/16 15:55 98.7 F 80 17 99/62 95 12/08/16 12:08 99.7 F H 89 16 105/71 97 Intake and Output 12/08/16 12/09/16 12/09/16 23:59 07:59 15:59 Intake Total 1100 / 1100 220 / 220 0 / 0 Output Total 100 / 100 200 / 200 300 / 300 Balance 1000 / 1000 20 / 20 -300 / -300 Intake: IV Fluids 1100 / 1100 100 / 100 D5% And 0.45% Nacl 1000 1000 / 1000 Ml Bag 1,000 ML @ 75 mls/ hr IVC .[id number] PAMELA Rx#: [id number] Zosyn 3.375 GM In 100 / 100 100 / 100 Dextrose 5% (Minibag+) 100 ML 100 ML @ 25 mls/hr IVPB Q8HR PAMELA Rx#: [id number] Oral 0 / 0 120 / 120 0 / 0 Output: Urine 100 / 100 200 / 200 300 / 300 Other: Meal NPO # Voids 1 Weight 97.579 kg Blood Glucose* 96 84 96 Patient Weight 12/09/16 23:59 Weight 97.579 kg Short CBC 12/09/16 Range/Units 05:12 WBC 6.8 (4.3-11.1) K/mcL Hgb 11.0 L (11.5-15.4) g/dL Hct 31.7 L (35.3-44.9) % Plt Count 184 (140-400) K/mcL Neutrophils # 5.1 (1.6-8.9) K/mcL BMP 12/09/16 Range/Units 05:12 Sodium 136 (136-145) mEq/L Potassium 3.2 L (3.5-4.5) mEq/L Chloride 101 (98-109) mEq/L Carbon Dioxide 26 (19-29) mEq/L BUN 7 (7-20) mg/dL Creatinine 0.76 (0.57-1.11) mg/dL Glucose 92 (70-99) mg/dL Calcium 8.8 (8.6-10.8) mg/dL Liver Function 12/09/16 Range/Units 05:12 Total Bilirubin 3.4 H (0.2-1.2) mg/dL Direct Bilirubin 2.5 H (0.0-0.5) mg/dL AST 101 H (5-34) Units/L ALT 187 H (0-55) Units/L Alkaline Phosphatase 168 H (38-126) Units/L Albumin 2.8 L (3.5-5.0) g/dL Urine 12/08/16 Range/Units 15:24 Urine Color [place] A (Yellow) Urine Clarity Cloudy A (Clear) Urine pH 6.0 (5.0-8.0) pH Units Ur Specific [place] > 1.030 H (1.010-1.025) Urine Protein 30 H (Neg-Trace) mg/dL Urine Glucose (UA) Normal (Normal) mg/dL - Imaging EKG: image reviewed (92bpm SR) Anesthesia Exam Vital Signs Temp Pulse Resp BP Pulse Ox 12/07/16 11:48 98 F 71 14 107/70 97 12/07/16 08:30 97 12/07/16 07:06 98.7 F 80 17 106/70 97 12/07/16 05:06 98.8 F 88 14 108/76 97 12/07/16 00:16 98.3 F 89 14 101/68 97 12/06/16 19:30 98.1 F 89 14 117/73 100 12/06/16 16:30 98.1 F 83 16 109/70 97 12/06/16 15:52 14 115/62 Intake and Output 12/06/16 12/07/16 12/07/16 23:59 07:59 15:59 Intake Total 0 / 0 1000 / 1000 0 / 0 Output Total 1375 / 1375 0 / 0 Balance 0 / 0 -375 / -375 0 / 0 Intake: IV Fluids 1000 / 1000 D5% And 0.45% Nacl 1000 1000 / 1000 Ml Bag 1,000 ML @ 75 mls/ hr IVC .[id number] PAMELA Rx#: [id number] Oral 0 / 0 0 / 0 0 / 0 Output: Urine 1375 / 1375 0 / 0 Other: Meal NPO NPO breakfast # Voids 1 Weight 95.368 kg Blood Glucose* 92 88 Patient Weight 12/07/16 23:59 Weight 95.368 kg - HEENT Pupil (Motor): Pupils equal, EOMI Mallampati: II Teeth: Edentulous Oral Opening: Greater than 3 - MINERAL SURVEYING TECHNICIAN LOC: Oriented MINERAL SURVEYING TECHNICIAN Motor: Normal RUE, Normal LUE, Normal RLE, Normal LLE, Normal Face MINERAL SURVEYING TECHNICIAN Sensory: Normal: RUE, LUE, RLE, LLE, Face - Cardiac Rhythm: Regular Murmur: None - Pulmonary Breath Sounds: bilateral Clear Respiratory Effort: Symmetrical Anesthesia Assess/Plan ASA Score: 3 (MO/BMI = 39,) Modified Converse Scale for Level of Consciousness: Cooperative, oriented, and tranquil Anesthetic Plan: General Monitoring Plan: Standard Monitors Recovery Plan: PACU Anes Supervising Prov Stmt: Pt seen/evaluated, R&B discussed, questions answered and consent obtained. Yumiko Winter MD
[2016-12-07] MEDS ORDERED: *HR* FentaNYL (PF) 100 MCG/2 ML VIAL ONE (15:27)
[2016-12-07] MEDS ORDERED: *HR* Midazolam HCl 2 MG/2 ML VIAL ONE (15:28)
[2016-12-07] MEDS ORDERED: Indomethacin 50 MG SUPP.RECT RC ONE (16:27)
--- NOTE | 2016-12-07 16:43 | Anesthesia Evaluation Post Op ---
Date of Encounter: 12/07/16 Time of Encounter: 16:42 - Vital Signs Vital Signs: Vital Signs/O2 Sat/Glucose, Most Current Temp Pulse Resp BP Pulse Ox 12/07/16 16:36 76 16 135/77 96 12/07/16 16:26 97.4 F L 94 16 133/93 97 12/07/16 15:26 97.5 F L 81 16 124/75 97 - Lungs Lungs: Clear Ascult./Percussion - Airway Airway: Non-obstructed - Cardiovascular Regular Rate, Baseline Rhythm - Mental Status Mental Status: Alert & Oriented, Answers Appropriately - Pain Pain Scale: 4 Pain Scale used: Numeric (1 - 10) - Nausea Vomiting Nausea Vomiting: Not Present - Hydration Hydration: NPO, Has not voided - Discharge PostOp Status: Transfer Patient to floor
[2016-12-07] MEDS: *HR* Heparin 5,000 UNIT/ML VIAL SQ SCH (17:34)
--- NOTE | 2016-12-07 17:49 | Procedure Note ---
Date of procedure: 12/07/16 Pre-op diagnosis: CBD stone Procedure: ERCP: CBD stonr removed.
--- NOTE | 2016-12-07 18:58 | Internal Med Progress Note ---
Date of Encounter: 12/07/16 Time of Encounter: 09:00 - Assessment and plan (1) Restless leg syndrome Current Visit: Yes Status: Acute Assessment and plan: Continue with Flexeril (2) DVT prophylaxis Current Visit: Yes Status: Acute Assessment and plan: We will start heparin twice a day after ERCP. (3) RUQ abdominal pain Current Visit: Yes Status: Acute Assessment and plan: Secondary to choledocholithiasis. We will treat this with IV hydromorphone. The patient is at high risk for morbidity mortality and complications due to treatment with IV opiates and invasive GI procedure scheduled for today. (4) Elevated LFTs Current Visit: Yes Status: Acute (5) Postcholecystectomy syndrome Current Visit: Yes Status: Acute (6) Choledocholithiasis Current Visit: Yes Status: Acute Assessment and plan: Nothing by mouth for ERCP today with stone removal. - Subjective Interval history: Patient reports severe abdominal pain, improved with IV Dilaudid, continued throughout the night worse with movement, pain is described as aching and pressure. Denies fevers chills chest pain and shortness of breath. - Constitutional Vitals: Temp Pulse Resp BP Pulse Ox 97.7 F 82 16 152/96 99 12/07/16 17:04 12/07/16 17:04 12/07/16 17:04 12/07/16 17:04 12/07/16 17:04 General appearance: Present: mild distress, A&O X 3 - Eye Eye exam: Present: PERRL, conjuntiva pink, sclera anicteric Pupils: Present: PERRL - Respiratory Respiratory exam: Present: CTAB. Absent: accessory muscle use, rales, rhonchi, wheezes - Cardiovascular Cardiovascular exam: Present: RRR, +S1, +S2. Absent: diastolic murmur, gallop, rubs, systolic murmur - GI/Abdominal GI/Abdominal exam: Present: normal bowel sounds, soft, no peritoneal signs. Absent: distended, tenderness - Extremities Exam Extremities exam: Present: warm, radial pulses palpable and symetrical. Absent : calf tenderness, cyanotic, pedal edema - Skin Skin exam: Present: dry, intact Internal Medicine: Result - Labs CBC & Chem 7: 12/07/16 00:38 12/06/16 17:01 Labs: Short CBC 12/07/16 Range/Units 00:38 WBC 8.4 (4.3-11.1) K/mcL Hgb 12.1 D (11.5-15.4) g/dL Hct 35.7 (35.3-44.9) % Plt Count 215 (140-400) K/mcL Neutrophils # 6.4 (1.6-8.9) K/mcL Cardiac Enzymes 12/07/16 Range/Units 00:38 Troponin I 0.00 (0-0.03) ng/mL Liver Function 12/07/16 Range/Units 00:38 Total Bilirubin 1.6 H (0.2-1.2) mg/dL Direct Bilirubin 0.4 (0.0-0.5) mg/dL AST 169 H (5-34) Units/L ALT 172 H (0-55) Units/L Alkaline Phosphatase 123 (38-126) Units/L Albumin 3.4 L (3.5-5.0) g/dL - ABG Interpretation ABG results: PT/INR, D-dimer D-Dimer 1012 ng/mLFEU (0-500) H 12/06/16 08:25 Consult Discharge Plan - Plan Referrals: Evens Pascual MD [Non-Partnered Physician] -
[2016-12-08] MEDS ORDERED: *HR* Morphine 2 MG/ML SYRINGE IVP ONE (00:56)
[2016-12-08] MEDS: *HR* Morphine 2 MG/ML SYRINGE IVP PRN ×4 (01:22→19:49)
[2016-12-08] MEDS: *HR* OxyCODONE Immed Rel 5 MG TABLET PO PRN ×3 (04:39→23:45)
[2016-12-08] MEDS: Ondansetron 4 MG/2 ML VIAL IVP PRN ×2 (04:39→19:49)
[2016-12-08 05:09] LABS: Hematocrit 32.7 % (35.3-44.9); Hemoglobin 11.6 g/dL (11.5-15.4); Mean Corpuscular HGB Conc 35.5 g/dL (31.6-35.5); Mean Corpuscular Volume 84.5 fL (83.0-100.0); Mean Platelet Volume 8.5 fL (9.4-12.4); Platelet Count 189 K/mcL (140-400); Red Blood Count 3.87 M/mcL (3.82-4.97); Red Cell Distribution Width 11.6 % (11.5-14.5)
[2016-12-08 05:31] LABS: Alanine Aminotransferase 297 Units/L (0-55); Albumin/Globulin Ratio 0.9 (1.1-2.2); Alkaline Phosphatase 189 Units/L (38-126); Aspartate Amino Transferase 315 Units/L (5-34); BUN/Creatinine Ratio 10 (6-26); Blood Urea Nitrogen 7 mg/dL (7-20); Calcium 8.8 mg/dL (8.6-10.8); Carbon Dioxide 22 mEq/L (19-29); Chloride 104 mEq/L (98-109); Globulin 3.4 g/dL (2.4-3.5); Glucose 136 mg/dL (70-99); Lipase 25 Units/L (8-78); Magnesium 1.5 mg/dL (1.6-2.6); Osmolality,Calculated 280 (280-300); Potassium 3.3 mEq/L (3.5-4.5); Sodium 135 mEq/L (136-145); Total Protein 6.4 g/dL (6.0-8.3); eGFR For African Americans > 60 (> 60); eGFR For Non-African Americans > 60 (> 60)
[2016-12-08 05:41] LABS: Lymphocytes # 0.3 K/mcL (0.6-4.6); Monocytes # 0.3 K/mcL (0.0-1.3); Neutrophils # 12.3 K/mcL (1.6-8.9)
[2016-12-08 05:42] LABS: Platelet Estimate Normal (Normal)
[2016-12-08] MEDS: *HR* Heparin 5,000 UNIT/ML VIAL SQ SCH ×2 (06:26→16:23)
[2016-12-08] MEDS: Pantoprazole 40 MG VIAL IVP SCH (09:18)
[2016-12-08] MEDS: D5% in 0.45% NACL 1,000 ML IVC SCH (09:20)
--- NOTE | 2016-12-08 13:52 | Gastroenterology Progress Note ---
<LouFreddy mcneil Santana - Last Filed: 12/08/16 13:50> Date of Encounter: 12/08/16 Time of Encounter: 10:20 - Assessment and plan (1) Choledocholithiasis Current Visit: Yes Status: Acute Assessment and plan: ERCP completed 12/07. TB increased to 3 from 1.6, AST 315 from 169, and ALT 297 from 172, unclear etiology. Continue to monitor hepatic panel daily. (2) RUQ abdominal pain Current Visit: Yes Status: Acute Assessment and plan: Secondary to choledocholithiasis. ERCP completed yesterday (12/07). - Time Spent With Patient Total time spent is greater than 50% in coordination of care (as documented) at patient's floor/unit and/or counseling patient: - Subjective Interval history: Patient continues to report abdominal pain which is improved with IV pain medication. She reports vomiting this AM. LFTs worsened this AM. - Constitutional Vitals: Temp Pulse Resp BP Pulse Ox 99.7 F H 89 16 105/71 97 12/08/16 12:08 12/08/16 12:08 12/08/16 12:08 12/08/16 12:08 12/08/16 12:08 General appearance: Present: cooperative, A&O X 3, no acute distress, answers questions appropriately - Head Head exam: Present: atraumatic, normocephalic - Eye Eye exam: Present: normal appearance, sclera anicteric - ENT ENT exam: Present: mucous membranes dry - Neck Neck exam general surgery: Present: normal inspection, trachea midline - Respiratory Respiratory exam: Present: CTAB. Absent: rales, rhonchi - Cardiovascular Cardiovascular exam: Present: RRR, +S1, +S2 - GI/Abdominal GI/Abdominal exam: Present: soft, tenderness (RUQ), no peritoneal signs. Absent : distended, firm, guarding - Rectal Rectal exam: Present: deferred - Extremities Exam Extremities exam: Present: warm - Neurological Exam Neurological exam: Present: no focal deficits - Psychiatric Psychiatric exam: Present: normal affect, normal mood - Skin Skin exam: Present: dry, intact, normal color, warm Results - Labs CBC & Chem 7: 12/08/16 04:54 12/08/16 04:54 Labs: Last Result Calcium 8.8 mg/dL (8.6-10.8) 12/08/16 04:54 Troponin I 0.00 ng/mL (0-0.03) 12/07/16 00:38 Entire Visit Hgb 11.6 g/dL (11.5-15.4) 12/08/16 04:54 Hct 32.7 % (35.3-44.9) L 12/08/16 04:54 Total Bilirubin 3.0 mg/dL (0.2-1.2) H D 12/08/16 04:54 AST 315 Units/L (5-34) H 12/08/16 04:54 ALT 297 Units/L (0-55) H 12/08/16 04:54 Amylase 40 Units/L (25-125) 12/06/16 08:25 Lipase 25 Units/L (8-78) 12/08/16 04:54 Acetaminophen < 1.0 mcg/mL (10-30) L 12/06/16 08:25 - ABG ABG results: PT/INR, D-dimer D-Dimer 1012 ng/mLFEU (0-500) H 12/06/16 08:25 Consult Discharge Plan - Plan Referrals: Evens Pascual MD [Non-Partnered Physician] - <Sondra Gonzales - Last Filed: 12/08/16 14:45> Date of Encounter: 12/08/16 Time of Encounter: 14:00 - Time Spent With Patient Total time spent is greater than 50% in coordination of care (as documented) at patient's floor/unit and/or counseling patient: - Constitutional Vitals: Temp Pulse Resp BP Pulse Ox 99.7 F H 89 16 105/71 97 12/08/16 12:08 12/08/16 12:08 12/08/16 12:08 12/08/16 12:08 12/08/16 12:08 Results - Labs CBC & Chem 7: 12/08/16 04:54 12/08/16 04:54 Labs: Last Result Calcium 8.8 mg/dL (8.6-10.8) 12/08/16 04:54 Troponin I 0.00 ng/mL (0-0.03) 12/07/16 00:38 Entire Visit Hgb 11.6 g/dL (11.5-15.4) 12/08/16 04:54 Hct 32.7 % (35.3-44.9) L 12/08/16 04:54 Total Bilirubin 3.0 mg/dL (0.2-1.2) H D 12/08/16 04:54 AST 315 Units/L (5-34) H 12/08/16 04:54 ALT 297 Units/L (0-55) H 12/08/16 04:54 Amylase 40 Units/L (25-125) 12/06/16 08:25 Lipase 25 Units/L (8-78) 12/08/16 04:54 Acetaminophen < 1.0 mcg/mL (10-30) L 12/06/16 08:25 - ABG ABG results: PT/INR, D-dimer D-Dimer 1012 ng/mLFEU (0-500) H 12/06/16 08:25 - Attending Attestation I examined this patient and my medical decision-making was reviewed with the NOTCHING PRESS OPERATOR/PA/Advanced Practice Nurse/Resident Physician. I agree with the documented findings, disposition and treatment plan as described except to the extent set forth below. Patient complaining of feeling feverish and thus has epigastric pain along with elevated LFTs concerning that she may have a retained stone. We will start the patient on IV antibiotic for possible cholangitis. 2 blood culture. If LFTs are up in the morning then she will need a repeat ERCP
[2016-12-08] MEDS ORDERED: Bisacodyl 10 MG RECTAL SUPPOSITORY RC PRN (14:39)
[2016-12-08] MEDS ORDERED: Bisacodyl 10 MG RECTAL SUPPOSITORY RC ONE (15:00)
[2016-12-08 15:31] LABS: Bilirubin,Urine Large (Negative); Blood,Urine Negative (Negative); Clarity,Urine Cloudy (Clear); Color,Urine Orange (Yellow); Glucose,Urine (UA) Normal (Normal); Ketones,Urine Trace mg/dL (Negative); Leukocyte Esterase,Urine Small (Negative); Nitrite,Urine Positive (Negative); Protein,Urine 30 mg/dL (Neg-Trace); Specific Gravity,Urine > 1.030 (1.010-1.025); Urobilinogen,Urine >=8.0 mg/dL (Normal)
[2016-12-08 15:32] LABS: Bacteria,Urine Few per hpf (None-Few); Hyaline Casts,Urine None Seen per lpf (None-Few); RBC,Urine 0-3 per hpf (0-3); Squamous Epithelial Cell,Urine Many per lpf (None-Few); WBC,Urine 0-3 per hpf (0-3)
[2016-12-08 16:04] LABS: Mucus,Urine Moderate (Few)
[2016-12-08] MEDS: Piperacillin/Tazobactam 3.375 GM in D5% in Water (Mini-Bag+) 100 ML IVPB SCH ×2 (16:21→23:45)
--- NOTE | 2016-12-08 19:30 | Internal Med Progress Note ---
Date of Encounter: 12/08/16 Time of Encounter: 19:28 - Assessment and plan (1) Restless leg syndrome Current Visit: Yes Status: Acute Assessment and plan: Continue with Flexeril (2) DVT prophylaxis Current Visit: Yes Status: Acute Assessment and plan: We will start heparin twice a day after ERCP. (3) RUQ abdominal pain Current Visit: Yes Status: Acute Assessment and plan: Secondary to choledocholithiasis. We will treat this with IV hydromorphone. The patient is at high risk for morbidity mortality and complications due to treatment with IV opiates and invasive GI procedure scheduled for today. (4) Elevated LFTs Current Visit: Yes Status: Acute (5) Postcholecystectomy syndrome Current Visit: Yes Status: Acute (6) Choledocholithiasis Current Visit: Yes Status: Acute Assessment and plan: Had ERCP done yesterday with common bile duct stone removal. She tolerated the procedure well. Her bilirubin however skin continuing to go up. She is developing a low-grade fever. I am concerned about cholangitis. I discussed plan with GI. We will obtain nieves cultures and start IV Zosyn. Consider starting starting vancomycin if temperature spikes. - Subjective Interval history: 12/08/2016: Patient continues to report severe abdominal pain though she has been developing low-grade fever and chills. Patient reports severe abdominal pain, improved with IV Dilaudid, continued throughout the night worse with movement, pain is described as aching and pressure. Denies fevers chills chest pain and shortness of breath. - Constitutional Vitals: Temp Pulse Resp BP Pulse Ox 98.7 F 80 17 99/62 95 12/08/16 15:55 12/08/16 15:55 12/08/16 15:55 12/08/16 15:55 12/08/16 15:55 General appearance: Present: mild distress, A&O X 3 - Respiratory Respiratory exam: Present: CTAB. Absent: accessory muscle use, rales, rhonchi, wheezes - Cardiovascular Cardiovascular exam: Present: RRR, +S1, +S2. Absent: diastolic murmur, gallop, rubs, systolic murmur - GI/Abdominal GI/Abdominal exam: Present: normal bowel sounds, soft, tenderness (Tender to palpation diffusely with voluntary guarding), no peritoneal signs. Absent: distended - Extremities Exam Extremities exam: Present: warm, radial pulses palpable and symetrical. Absent : calf tenderness, cyanotic, pedal edema Internal Medicine: Result - Labs CBC & Chem 7: 12/08/16 04:54 12/08/16 04:54 Labs: Short CBC 12/08/16 Range/Units 04:54 WBC 12.8 H D (4.3-11.1) K/mcL Hgb 11.6 (11.5-15.4) g/dL Hct 32.7 L (35.3-44.9) % Plt Count 189 (140-400) K/mcL Neutrophils # 12.3 H (1.6-8.9) K/mcL BMP 12/08/16 04:54 Sodium 135 L Potassium 3.3 L Chloride 104 Carbon Dioxide 22 BUN 7 Creatinine 0.72 Glucose 136 H Calcium 8.8 Liver Function 12/08/16 Range/Units 04:54 Total Bilirubin 3.0 H D (0.2-1.2) mg/dL AST 315 H (5-34) Units/L ALT 297 H (0-55) Units/L Alkaline Phosphatase 189 H (38-126) Units/L Albumin 3.0 L (3.5-5.0) g/dL Urine 12/08/16 Range/Units 15:24 Urine Color Rowena A (Yellow) Urine Clarity Cloudy A (Clear) Urine pH 6.0 (5.0-8.0) pH Units Ur Specific Winifred > 1.030 H (1.010-1.025) Urine Protein 30 H (Neg-Trace) mg/dL Urine Glucose (UA) Normal (Normal) mg/dL - ABG Interpretation ABG results: PT/INR, D-dimer D-Dimer 1012 ng/mLFEU (0-500) H 12/06/16 08:25 - Impressions Impressions Chest X-Ray 12/08/16 14:36 IMPRESSION: 1. Low lung volumes but no active pulmonary disease. D/ / Matt Gaines MD / Matt Gaines MD Interpreting Provider: Matt Gaines MD Consult Discharge Plan - Plan Referrals: Evens Pascual MD [Non-Partnered Physician] -
[2016-12-08] MEDS: Acetaminophen 325 MG TABLET PO PRN (23:51)
[2016-12-09] MEDS: *HR* Morphine 2 MG/ML SYRINGE IVP PRN ×4 (01:17→22:24)
[2016-12-09] MEDS: *HR* Heparin 5,000 UNIT/ML VIAL SQ SCH ×2 (05:26→17:44)
[2016-12-09 05:52] LABS: Basophils # 0.1 K/mcL (0.0-0.2); Basophils % 0.7 %; Eosinophils # 0.3 K/mcL (0.0-0.6); Eosinophils % 3.8 %; Hematocrit 31.7 % (35.3-44.9); Immature Granulocytes % 0.7 % (0-4); Lymphocytes # 0.8 K/mcL (0.6-4.6); Mean Corpuscular HGB Conc 34.7 g/dL (31.6-35.5); Mean Corpuscular Hemoglobin 30.1 pg (28.0-33.3); Mean Corpuscular Volume 86.6 fL (83.0-100.0); Mean Platelet Volume 8.7 fL (9.4-12.4); Monocytes # 0.6 K/mcL (0.0-1.3); Monocytes % 9.1 %; Neutrophils # 5.1 K/mcL (1.6-8.9); Platelet Count 184 K/mcL (140-400); Red Blood Count 3.66 M/mcL (3.82-4.97); Red Cell Distribution Width 11.9 % (11.5-14.5); Segmented Neutrophils % 74.7 %
[2016-12-09 06:03] LABS: Alanine Aminotransferase 187 Units/L (0-55); Albumin 2.8 g/dL (3.5-5.0); Albumin/Globulin Ratio 0.9 (1.1-2.2); Alkaline Phosphatase 168 Units/L (38-126); Aspartate Amino Transferase 101 Units/L (5-34); BUN/Creatinine Ratio 9 (6-26); Bilirubin,Indirect 0.9 mg/dL (0.0-1.2); Bilirubin,Total 3.4 mg/dL (0.2-1.2); Blood Urea Nitrogen 7 mg/dL (7-20); Calcium 8.8 mg/dL (8.6-10.8); Carbon Dioxide 26 mEq/L (19-29); Chloride 101 mEq/L (98-109); Globulin 3.2 g/dL (2.4-3.5); Glucose 92 mg/dL (70-99); Osmolality,Calculated 280 (280-300); Potassium 3.2 mEq/L (3.5-4.5); Sodium 136 mEq/L (136-145); eGFR For African Americans > 60 (> 60); eGFR For Non-African Americans > 60 (> 60)
[2016-12-09 06:07] LABS: Bilirubin,Direct 2.5 mg/dL (0.0-0.5)
[2016-12-09] MEDS: *HR* OxyCODONE Immed Rel 5 MG TABLET PO PRN ×2 (07:55→18:40)
[2016-12-09] MEDS: Pantoprazole 40 MG VIAL IVP SCH (07:56)
[2016-12-09] MEDS: Piperacillin/Tazobactam 3.375 GM in D5% in Water (Mini-Bag+) 100 ML IVPB SCH ×2 (07:56→18:39)
[2016-12-09] MEDS: D5% in 0.45% NACL 1,000 ML IVC SCH ×2 (08:02→17:35)
[2016-12-09] MEDS: Ondansetron 4 MG/2 ML VIAL IVP PRN (08:02)
[2016-12-09] MEDS ORDERED: Magnesium Sulfate 2 GM in D5% in Water 100 ML IVPB ONE (11:18)
[2016-12-09] MEDS ORDERED: *HR* FentaNYL (PF) 100 MCG/2 ML VIAL ONE (11:49)
[2016-12-09] MEDS ORDERED: Indomethacin 50 MG SUPP.RECT RC ONE (12:10)
[2016-12-09] MEDS ORDERED: Lidocaine -MPF 2% 5 ML VIAL INFILT ONE (12:26)
[2016-12-09] MEDS ORDERED: Lidocaine -MPF 4% 5 ML AMPUL TP ONE (12:26)
[2016-12-09] MEDS ORDERED: Dexamethasone 120 MG/30 ML MDV IVP ONE (12:26)
[2016-12-09] MEDS ORDERED: *HR* Propofol 200 MG/20 ML VIAL IVP ONE (12:26)
[2016-12-09] MEDS ORDERED: Ondansetron 4 MG/2 ML VIAL IVP ONE (12:26)
[2016-12-09] MEDS: *HR* Promethazine 25 MG/ML VIAL IVP PRN (14:06)
--- NOTE | 2016-12-09 19:04 | Internal Med Progress Note ---
Date of Encounter: 12/09/16 Time of Encounter: 12:00 - Assessment and plan (1) Restless leg syndrome Current Visit: Yes Status: Acute Assessment and plan: Continue with Flexeril (2) DVT prophylaxis Current Visit: Yes Status: Acute Assessment and plan: We will start heparin twice a day after ERCP. (3) RUQ abdominal pain Current Visit: Yes Status: Acute Assessment and plan: Continue with IV Dilaudid. Secondary to choledocholithiasis. Had ERCP with stone removal 2 days ago on 12/2016. The patient is at high risk for morbidity mortality and complications due to treatment with IV opiates and invasive GI procedure scheduled for today. (4) Elevated LFTs Current Visit: Yes Status: Acute Assessment and plan: Possibly secondary to cholangitis versus retained CBD stone. Discussed case with GI. We will continue with antibiotics. She will have repeat ERCP with CBD stent placement. Continue monitoring her LFTs daily. (5) Postcholecystectomy syndrome Current Visit: Yes Status: Acute (6) Choledocholithiasis Current Visit: Yes Status: Acute Assessment and plan: 12/08/2016: Had ERCP done yesterday with common bile duct stone removal. She tolerated the procedure well. Her bilirubin however skin continuing to go up. She is developing a low-grade fever. I am concerned about cholangitis. I discussed plan with GI. We will obtain nieves cultures and start IV Zosyn. Consider starting starting vancomycin if temperature spikes. - Subjective Interval history: 12/09/16: Patient reports moderate to severe epigastric abdominal pain, improved with IV Dilaudid. Reports associated nausea, fever and chills have resolved. Her MAXIMUM TEMPERATURE has been 98.7. 12/08/2016: Patient continues to report severe abdominal pain though she has been developing low-grade fever and chills. Patient reports severe abdominal pain, improved with IV Dilaudid, continued throughout the night worse with movement, pain is described as aching and pressure. Denies fevers chills chest pain and shortness of breath. - Constitutional Vitals: Temp Pulse Resp BP Pulse Ox 97.5 F L 70 18 130/80 93 12/09/16 14:44 12/09/16 14:44 12/09/16 14:44 12/09/16 14:44 12/09/16 14:44 General appearance: Present: mild distress, A&O X 3 - Eye Eye exam: Present: PERRL, scleral icterus, conjuntiva pink Pupils: Present: PERRL - Respiratory Respiratory exam: Present: CTAB. Absent: accessory muscle use, rales, rhonchi, wheezes - Cardiovascular Cardiovascular exam: Present: RRR, +S1, +S2. Absent: diastolic murmur, gallop, rubs, systolic murmur - GI/Abdominal GI/Abdominal exam: Present: normal bowel sounds, soft, no peritoneal signs. Absent: distended, tenderness - Extremities Exam Extremities exam: Present: warm, radial pulses palpable and symetrical. Absent : calf tenderness, cyanotic, pedal edema - Skin Skin exam: Present: dry, intact Internal Medicine: Result - Labs CBC & Chem 7: 12/09/16 05:12 12/09/16 05:12 Labs: Short CBC 12/09/16 Range/Units 05:12 WBC 6.8 (4.3-11.1) K/mcL Hgb 11.0 L (11.5-15.4) g/dL Hct 31.7 L (35.3-44.9) % Plt Count 184 (140-400) K/mcL Neutrophils # 5.1 (1.6-8.9) K/mcL BMP 12/09/16 05:12 Sodium 136 Potassium 3.2 L Chloride 101 Carbon Dioxide 26 BUN 7 Creatinine 0.76 Glucose 92 Calcium 8.8 Liver Function 12/09/16 Range/Units 05:12 Total Bilirubin 3.4 H (0.2-1.2) mg/dL Direct Bilirubin 2.5 H (0.0-0.5) mg/dL AST 101 H (5-34) Units/L ALT 187 H (0-55) Units/L Alkaline Phosphatase 168 H (38-126) Units/L Albumin 2.8 L (3.5-5.0) g/dL - ABG Interpretation ABG results: PT/INR, D-dimer D-Dimer 1012 ng/mLFEU (0-500) H 12/06/16 08:25 - Impressions Impressions Cath/Invasive Procedure 12/07/16 00:00 IMPRESSION: Intraprocedural fluoroscopic spot images as above. See separate procedure report for more information. D/ / Thomas Cha MD / Thomas Cha MD Interpreting Provider: Thomas Cha MD Cath/Invasive Procedure 12/09/16 11:56 IMPRESSION: Intraprocedural fluoroscopic spot images as above. See separate procedure report for more information. D/ / 12/09/2016 14:01:36 Thomas Cha MD / Marcia Molina Interpreting Provider: Thomas Cha MD Consult Discharge Plan - Plan Referrals: Evens Pascual MD [Non-Partnered Physician] -
[2016-12-10] MEDS: Piperacillin/Tazobactam 3.375 GM in D5% in Water (Mini-Bag+) 100 ML IVPB SCH ×3 (03:09→19:17)
[2016-12-10] MEDS: *HR* OxyCODONE Immed Rel 5 MG TABLET PO PRN ×3 (03:09→19:37)
[2016-12-10] MEDS: D5% in 0.45% NACL 1,000 ML IVC SCH (03:09)
[2016-12-10 04:45] LABS: Basophils % 0.3 %; Eosinophils % 0.3 %; Hemoglobin 11.5 g/dL (11.5-15.4); Immature Granulocytes % 1.5 % (0-4); Lymphocytes % 14.6 %; Mean Corpuscular HGB Conc 33.8 g/dL (31.6-35.5); Mean Corpuscular Hemoglobin 28.7 pg (28.0-33.3); Mean Corpuscular Volume 84.8 fL (83.0-100.0); Mean Platelet Volume 8.3 fL (9.4-12.4); Monocytes # 0.7 K/mcL (0.0-1.3); Monocytes % 10.1 %; Platelet Count 254 K/mcL (140-400); Red Blood Count 4.01 M/mcL (3.82-4.97); Red Cell Distribution Width 11.7 % (11.5-14.5); Segmented Neutrophils % 73.2 %
[2016-12-10] MEDS: Ondansetron 4 MG/2 ML VIAL IVP PRN ×2 (04:46→12:00)
[2016-12-10 05:01] LABS: Alanine Aminotransferase 130 Units/L (0-55); Albumin 2.7 g/dL (3.5-5.0); Albumin/Globulin Ratio 0.8 (1.1-2.2); Alkaline Phosphatase 149 Units/L (38-126); Aspartate Amino Transferase 41 Units/L (5-34); BUN/Creatinine Ratio 10 (6-26); Bilirubin,Indirect 0.6 mg/dL (0.0-1.2); Blood Urea Nitrogen 7 mg/dL (7-20); Calcium 8.6 mg/dL (8.6-10.8); Carbon Dioxide 25 mEq/L (19-29); Chloride 104 mEq/L (98-109); Globulin 3.5 g/dL (2.4-3.5); Glucose 112 mg/dL (70-99); Osmolality,Calculated 285 (280-300); Potassium 3.7 mEq/L (3.5-4.5); Sodium 138 mEq/L (136-145); Total Protein 6.2 g/dL (6.0-8.3); eGFR For African Americans > 60 (> 60); eGFR For Non-African Americans > 60 (> 60)
[2016-12-10 05:04] LABS: Bilirubin,Direct 0.9 mg/dL (0.0-0.5); Bilirubin,Total 1.5 mg/dL (0.2-1.2)
[2016-12-10] MEDS: *HR* Heparin 5,000 UNIT/ML VIAL SQ SCH ×2 (06:04→19:15)
[2016-12-10] MEDS: *HR* Promethazine 25 MG/ML VIAL IVP PRN (06:04)
[2016-12-10] MEDS: *HR* Morphine 2 MG/ML SYRINGE IVP PRN ×2 (07:48→16:03)
[2016-12-10] MEDS: Pantoprazole 40 MG VIAL IVP SCH (07:48)
--- NOTE | 2016-12-10 17:58 | Internal Med Progress Note ---
Date of Encounter: 12/10/16 Time of Encounter: 15:00 - Assessment and plan (1) Restless leg syndrome Current Visit: Yes Status: Acute Assessment and plan: Continue with Flexeril (2) DVT prophylaxis Current Visit: Yes Status: Acute Assessment and plan: We will start heparin twice a day after ERCP. (3) RUQ abdominal pain Current Visit: Yes Status: Acute Assessment and plan: Continue with IV Dilaudid. Secondary to choledocholithiasis. Had ERCP with stone removal 2 days ago on 12/2016. The patient is at high risk for morbidity mortality and complications due to treatment with IV opiates and invasive GI procedure scheduled for today. (4) Elevated LFTs Current Visit: Yes Status: Acute Assessment and plan: Possibly secondary to cholangitis versus retained CBD stone. I will continue with antibiotics. She did have a repeat ERCP on 12/09/2016 with CBD stent placement. Continue monitoring her LFTs daily. LFTs trending down today. Pain improved compared to yesterday. (5) Choledocholithiasis Current Visit: Yes Status: Acute Assessment and plan: 12/09/2016: Status post ERCP with biliary stent placement, direct bilirubin is improving from 2.5-0.9. AST and ALT trending down. We will continue to monitor disease. Start clear liquid diet and advance as tolerated. 12/08/2016: Had ERCP done yesterday with common bile duct stone removal. She tolerated the procedure well. Her bilirubin however skin continuing to go up. She is developing a low-grade fever. I am concerned about cholangitis. I discussed plan with GI. We will obtain nieves cultures and start IV Zosyn. Consider starting starting vancomycin if temperature spikes. - Subjective Interval history: 12/10/2016: The patient reports moderate right upper quadrant pain and epigastric pain, dull and aching, currently 6/10 improved with IV morphine. She reports associated nausea, no vomiting. 12/09/16: Patient reports moderate to severe epigastric abdominal pain, improved with IV Dilaudid. Reports associated nausea, fever and chills have resolved. Her MAXIMUM TEMPERATURE has been 98.7. 12/08/2016: Patient continues to report severe abdominal pain though she has been developing low-grade fever and chills. Patient reports severe abdominal pain, improved with IV Dilaudid, continued throughout the night worse with movement, pain is described as aching and pressure. Denies fevers chills chest pain and shortness of breath. - Constitutional Vitals: Temp Pulse Resp BP Pulse Ox 97.9 F 79 16 114/78 98 12/10/16 15:52 12/10/16 15:52 12/10/16 15:52 12/10/16 15:52 12/10/16 15:52 General appearance: Present: A&O X 3, morbidly obese - Eye Eye exam: Present: PERRL, conjuntiva pink, sclera anicteric Pupils: Present: PERRL - Respiratory Respiratory exam: Present: CTAB. Absent: accessory muscle use, rales, rhonchi, wheezes - Cardiovascular Cardiovascular exam: Present: RRR, +S1, +S2. Absent: diastolic murmur, gallop, rubs, systolic murmur - GI/Abdominal GI/Abdominal exam: Present: normal bowel sounds, soft, tenderness, no peritoneal signs. Absent: distended - Extremities Exam Extremities exam: Present: warm, radial pulses palpable and symetrical. Absent : calf tenderness, cyanotic, pedal edema Internal Medicine: Result - Labs CBC & Chem 7: 12/10/16 04:24 12/10/16 04:24 Labs: Short CBC 12/10/16 Range/Units 04:24 WBC 6.9 (4.3-11.1) K/mcL Hgb 11.5 (11.5-15.4) g/dL Hct 34.0 L (35.3-44.9) % Plt Count 254 (140-400) K/mcL Neutrophils # 5.0 (1.6-8.9) K/mcL BMP 12/10/16 04:24 Sodium 138 Potassium 3.7 Chloride 104 Carbon Dioxide 25 BUN 7 Creatinine 0.72 Glucose 112 H Calcium 8.6 Liver Function 12/10/16 Range/Units 04:24 Total Bilirubin 1.5 H D (0.2-1.2) mg/dL Direct Bilirubin 0.9 H D (0.0-0.5) mg/dL AST 41 H (5-34) Units/L ALT 130 H (0-55) Units/L Alkaline Phosphatase 149 H (38-126) Units/L Albumin 2.7 L (3.5-5.0) g/dL - ABG Interpretation ABG results: PT/INR, D-dimer D-Dimer 1012 ng/mLFEU (0-500) H 12/06/16 08:25 Consult Discharge Plan - Plan Referrals: Evens Pascual MD [Non-Partnered Physician] -
[2016-12-11] MEDS: Ondansetron 4 MG/2 ML VIAL IVP PRN ×2 (01:34→18:25)
[2016-12-11] MEDS: *HR* OxyCODONE Immed Rel 5 MG TABLET PO PRN ×3 (01:34→17:32)
[2016-12-11] MEDS: *HR* Morphine 2 MG/ML SYRINGE IVP PRN ×3 (03:31→19:30)
[2016-12-11] MEDS: Piperacillin/Tazobactam 3.375 GM in D5% in Water (Mini-Bag+) 100 ML IVPB SCH ×3 (03:31→18:25)
[2016-12-11 03:35] LABS: Basophils # 0.1 K/mcL (0.0-0.2); Eosinophils # 0.2 K/mcL (0.0-0.6); Eosinophils % 2.5 %; Hematocrit 30.6 % (35.3-44.9); Hemoglobin 10.5 g/dL (11.5-15.4); Immature Granulocytes % 1.8 % (0-4); Lymphocytes # 2.2 K/mcL (0.6-4.6); Lymphocytes % 32.2 %; Mean Corpuscular HGB Conc 34.3 g/dL (31.6-35.5); Mean Corpuscular Hemoglobin 29.7 pg (28.0-33.3); Mean Corpuscular Volume 86.7 fL (83.0-100.0); Mean Platelet Volume 8.3 fL (9.4-12.4); Monocytes # 0.6 K/mcL (0.0-1.3); Monocytes % 9.6 %; Neutrophils # 3.5 K/mcL (1.6-8.9); Platelet Count 247 K/mcL (140-400); Red Blood Count 3.53 M/mcL (3.82-4.97); Red Cell Distribution Width 12.1 % (11.5-14.5); Segmented Neutrophils % 52.9 %
[2016-12-11 03:50] LABS: Alanine Aminotransferase 87 Units/L (0-55); Albumin 2.6 g/dL (3.5-5.0); Albumin/Globulin Ratio 0.8 (1.1-2.2); Alkaline Phosphatase 117 Units/L (38-126); Aspartate Amino Transferase 28 Units/L (5-34); BUN/Creatinine Ratio 12 (6-26); Bilirubin,Direct 0.5 mg/dL (0.0-0.5); Bilirubin,Indirect 0.4 mg/dL (0.0-1.2); Bilirubin,Total 0.9 mg/dL (0.2-1.2); Blood Urea Nitrogen 9 mg/dL (7-20); Calcium 8.3 mg/dL (8.6-10.8); Carbon Dioxide 25 mEq/L (19-29); Chloride 105 mEq/L (98-109); Globulin 3.1 g/dL (2.4-3.5); Glucose 85 mg/dL (70-99); Osmolality,Calculated 286 (280-300); Potassium 3.2 mEq/L (3.5-4.5); Sodium 139 mEq/L (136-145); Total Protein 5.7 g/dL (6.0-8.3); eGFR For African Americans > 60 (> 60); eGFR For Non-African Americans > 60 (> 60)
[2016-12-11] MEDS: *HR* Heparin 5,000 UNIT/ML VIAL SQ SCH ×2 (05:25→17:32)
[2016-12-11] MEDS: Pantoprazole 40 MG VIAL IVP SCH (08:04)
--- NOTE | 2016-12-11 17:57 | Internal Med Progress Note ---
Date of Encounter: 12/11/16 Time of Encounter: 15:00 - Assessment and plan (1) Restless leg syndrome Current Visit: Yes Status: Acute Assessment and plan: Continue with Flexeril (2) DVT prophylaxis Current Visit: Yes Status: Acute Assessment and plan: We will start heparin twice a day after ERCP. (3) RUQ abdominal pain Current Visit: Yes Status: Acute Assessment and plan: Continue with IV Dilaudid. Secondary to choledocholithiasis. Had ERCP with stone removal 2 days ago on 12/2016. The patient is at high risk for morbidity mortality and complications due to treatment with IV opiates and invasive GI procedure scheduled for today. (4) Elevated LFTs Current Visit: Yes Status: Acute Assessment and plan: Possibly secondary to cholangitis versus retained CBD stone. I will continue with antibiotics. She did have a repeat ERCP on 12/09/2016 with CBD stent placement. Continue monitoring her LFTs daily. LFTs trending down today. Pain improved compared to yesterday. (5) Choledocholithiasis Current Visit: Yes Status: Acute Assessment and plan: 12/09/2016: Status post ERCP with biliary stent placement, direct bilirubin is improving from 2.5-0.9. AST and ALT trending down. We will continue to monitor disease. Start clear liquid diet and advance as tolerated. 12/08/2016: Had ERCP done yesterday with common bile duct stone removal. She tolerated the procedure well. Her bilirubin however skin continuing to go up. She is developing a low-grade fever. I am concerned about cholangitis. I discussed plan with GI. We will obtain nieves cultures and start IV Zosyn. Consider starting starting vancomycin if temperature spikes. (6) Acute cholangitis Current Visit: Yes Status: Acute Assessment and plan: Right upper quadrant pain and fever as well as elevated bilirubin likely secondary to cholangitis, triggering event was the presence of a small CBD stone which was removed by ERCP. Now she is status post CBD stent placement. Her pain is improving however she still requires significant amounts of oral oxycodone and her pain is exacerbated by eating. She has just started a diet. We will continue treatment with IV Zosyn and plan to switch to oral antibiotics tomorrow if tolerated. - Subjective Interval history: 12/11/2016: The patient reports 8/10 right upper quadrant pain worse with moving in bed, dull, improved with oxycodone. She has not needed IV pain medications over the last 24 hours. She reports worsening with food. She just started having a diet this morning. 12/10/2016: The patient reports moderate right upper quadrant pain and epigastric pain, dull and aching, currently 6/10 improved with IV morphine. She reports associated nausea, no vomiting. 12/09/16: Patient reports moderate to severe epigastric abdominal pain, improved with IV Dilaudid. Reports associated nausea, fever and chills have resolved. Her MAXIMUM TEMPERATURE has been 98.7. 12/08/2016: Patient continues to report severe abdominal pain though she has been developing low-grade fever and chills. Patient reports severe abdominal pain, improved with IV Dilaudid, continued throughout the night worse with movement, pain is described as aching and pressure. Denies fevers chills chest pain and shortness of breath. - Constitutional Vitals: Temp Pulse Resp BP Pulse Ox 98.1 F 67 14 98/68 96 12/11/16 15:48 12/11/16 15:48 12/11/16 15:48 12/11/16 15:48 12/11/16 15:48 General appearance: Present: A&O X 3, morbidly obese - Eye Eye exam: Present: PERRL, conjuntiva pink, sclera anicteric Pupils: Present: PERRL - Respiratory Respiratory exam: Present: CTAB. Absent: accessory muscle use, rales, rhonchi, wheezes - Cardiovascular Cardiovascular exam: Present: RRR, +S1, +S2. Absent: diastolic murmur, gallop, rubs, systolic murmur - GI/Abdominal GI/Abdominal exam: Present: normal bowel sounds, soft, tenderness, no peritoneal signs. Absent: distended Internal Medicine: Result - Labs CBC & Chem 7: 12/11/16 03:14 12/11/16 03:14 Labs: Short CBC 12/11/16 Range/Units 03:14 WBC 6.7 (4.3-11.1) K/mcL Hgb 10.5 L (11.5-15.4) g/dL Hct 30.6 L (35.3-44.9) % Plt Count 247 (140-400) K/mcL Neutrophils # 3.5 (1.6-8.9) K/mcL BMP 12/11/16 03:14 Sodium 139 Potassium 3.2 L Chloride 105 Carbon Dioxide 25 BUN 9 Creatinine 0.75 Glucose 85 Calcium 8.3 L Liver Function 12/11/16 Range/Units 03:14 Total Bilirubin 0.9 (0.2-1.2) mg/dL Direct Bilirubin 0.5 (0.0-0.5) mg/dL AST 28 (5-34) Units/L ALT 87 H (0-55) Units/L Alkaline Phosphatase 117 (38-126) Units/L Albumin 2.6 L (3.5-5.0) g/dL - ABG Interpretation ABG results: PT/INR, D-dimer D-Dimer 1012 ng/mLFEU (0-500) H 12/06/16 08:25 Consult Discharge Plan - Plan Referrals: Evens Pascual MD [Non-Partnered Physician] -
[2016-12-11] MEDS: Acetaminophen 325 MG TABLET PO PRN (22:39)
[2016-12-12] MEDS: *HR* OxyCODONE Immed Rel 5 MG TABLET PO PRN ×2 (01:06→10:14)
[2016-12-12] MEDS: Piperacillin/Tazobactam 3.375 GM in D5% in Water (Mini-Bag+) 100 ML IVPB SCH ×2 (03:34→10:14)
[2016-12-12] MEDS: *HR* Morphine 2 MG/ML SYRINGE IVP PRN (04:52)
[2016-12-12 05:11] LABS: Basophils # 0.1 K/mcL (0.0-0.2); Basophils % 1.3 %; Eosinophils # 0.2 K/mcL (0.0-0.6); Eosinophils % 3.6 %; Hematocrit 35.2 % (35.3-44.9); Hemoglobin 11.9 g/dL (11.5-15.4); Immature Granulocytes % 3.9 % (0-4); Lymphocytes # 1.8 K/mcL (0.6-4.6); Mean Corpuscular HGB Conc 33.8 g/dL (31.6-35.5); Mean Corpuscular Hemoglobin 29.2 pg (28.0-33.3); Mean Corpuscular Volume 86.5 fL (83.0-100.0); Mean Platelet Volume 8.1 fL (9.4-12.4); Monocytes # 0.6 K/mcL (0.0-1.3); Monocytes % 9.5 %; Neutrophils # 3.1 K/mcL (1.6-8.9); Platelet Count 305 K/mcL (140-400); Red Blood Count 4.07 M/mcL (3.82-4.97); Red Cell Distribution Width 11.9 % (11.5-14.5); Segmented Neutrophils % 51.7 %
[2016-12-12] MEDS: *HR* Heparin 5,000 UNIT/ML VIAL SQ SCH (05:26)
[2016-12-12 05:29] LABS: Alanine Aminotransferase 71 Units/L (0-55); Albumin 2.8 g/dL (3.5-5.0); Albumin/Globulin Ratio 0.8 (1.1-2.2); Alkaline Phosphatase 116 Units/L (38-126); Aspartate Amino Transferase 25 Units/L (5-34); BUN/Creatinine Ratio 7 (6-26); Bilirubin,Direct 0.4 mg/dL (0.0-0.5); Bilirubin,Indirect 0.3 mg/dL (0.0-1.2); Bilirubin,Total 0.7 mg/dL (0.2-1.2); Calcium 9.2 mg/dL (8.6-10.8); Carbon Dioxide 30 mEq/L (19-29); Chloride 105 mEq/L (98-109); Globulin 3.4 g/dL (2.4-3.5); Glucose 107 mg/dL (70-99); Osmolality,Calculated 290 (280-300); Potassium 3.5 mEq/L (3.5-4.5); Sodium 141 mEq/L (136-145); Total Protein 6.2 g/dL (6.0-8.3); eGFR For African Americans > 60 (> 60); eGFR For Non-African Americans > 60 (> 60)
[2016-12-12 05:31] LABS: Blood Urea Nitrogen 5 mg/dL (7-20)
[2016-12-12] MEDS: Pantoprazole 40 MG VIAL IVP SCH (07:36)
--- NOTE | 2016-12-12 11:58 | Discharge Summary ---
Date of Encounter: 12/12/16 Time of Encounter: 11:55 - Discharge Diagnosis (1) Restless leg syndrome Priority: Secondary Status: Acute (2) DVT prophylaxis Priority: Secondary Status: Acute (3) RUQ abdominal pain Priority: Secondary Status: Acute (4) Elevated LFTs Priority: Secondary Status: Acute (5) Choledocholithiasis Priority: Primary Status: Acute (6) Acute cholangitis Priority: Secondary Status: Acute - Discharge Medications Prescriptions: OxyCODONE Immed Rel [Roxicodone 5 MG] 5 mg PO Q6HR PRN #30 tablet PRN Reason: Moderate Pain (4-6) Amoxicillin/Clavulanate [Augmentin] 875 mg PO BIDWM #8 tablet Home Medications: Cyclobenzaprine [Flexeril] 10 mg PO BID PRN #14 tablet 05/24/16 [Rx] Ondansetron ODT [Zofran ODT] 4 mg SL Q4HR PRN #10 tab.rapdis 07/01/16 [Rx] Docusate Sodium [Dok] 100 mg PO BID PRN 12/06/16 [History] Ibuprofen [Advil] 200 mg PO Q6H PRN 12/06/16 [History] Polyethylene Glycol 3350 [MiraLAX Powder Bulk 17.9 Oz] 1 scoop PO DAILY PRN 11/19 [History] Amoxicillin/Clavulanate [Augmentin] 875 mg PO BIDWM #8 tablet 12/12/16 [Rx] OxyCODONE Immed Rel [Roxicodone 5 MG] 5 mg PO Q6HR PRN #30 tablet 12/12/16 [Rx] Allergies/Adverse Reactions: Allergies No Known Allergies Allergy (Verified 12/06/16 13:33) Date of admission: 12/10/16 18:21 Primary care physician: PCP NO - Patient Status Disposition: Home, Self-Care Condition: Fair Functional capacity at discharge: independent ambulation Overall status at discharge: patient is back to baseline - Discharge Instructions Follow Up With: Evens Pascual MD [Non-Partnered Physician] - Sondra Gonzales MD [Partnered Physician] - Forms: ED Satisfaction Letter Additional Instructions: Follow-up with PCP in 1-2 weeks and follow-up with Dr. Hinton in 6-8 weeks for stent retrieval. - Diet and Activity Activity: increase activity as tolerated Diet: advance to your usual diet, regular diet Hospital course: Hospital presentation: Ms. Partida is a 41 year old female with past surgical history of cholecystectomy 2 years ago done at [facility] who presents to the hospital with abdominal pain. She states the pain woke her up from sleep at 5 this morning, it was located in the right upper quadrant, radiating to the chest, 10/10 in intensity, pressure-like, associated with nausea and vomiting. The pain lasted for several hours until he was finally relieved with IV pain medication which she received in the emergency department. She states that she has had similar abdominal pain in the past but it would usually ease off. This time it was unremitting and therefore she presented to the hospital. An initial workup done in the emergency department revealed elevated LFTs including bilirubin and AST and ALT. She was referred for admission to the hospital. Hospital course: She was admitted to the hospital, treated with IV fluids, IV opiates for pain, she was kept nothing by mouth. She had an MRCP which showed evidence of dilated CBD and the presence of a gallstone inside of the CBD. GI was consulted. She had an ERCP with stone retrieval. In spite of.her abdominal pain persisted and her bilirubin continued to climb up. She had a repeat ERCP with CBD stent placement by GI which she tolerated well. Around the same time she had low grade fever and elevated white blood cell count. Upon discussion with gastroenterology was suspected that she was developing acute cholangitis. She was started on IV Zosyn which caused a significant improvement in her white count, symptoms and temperature curve. Currently the patient is afebrile, she has been able to tolerate an oral diet, her pain has improved and is better controlled with oral medications. Her bilirubin is back within normal range. She will be discharged home to follow up with primary care physician in one to 2 weeks and just enterology and 8 weeks. For further details about his hospitalization please refer to consultation notes , progress notes and procedure notes. - Time Spent with Patient Total time spent providing and/or coordinating discharge services: Greater than 30 minutes (I have spent 40 minutes coordinating this discharge.) - Constitutional Vitals: Temp Pulse Resp BP Pulse Ox 98.6 F 77 16 128/83 96 12/12/16 10:46 12/12/16 10:46 12/12/16 10:46 12/12/16 10:46 12/12/16 10:46 General appearance: Present: A&O X 3, morbidly obese - Respiratory Respiratory exam: Present: CTAB. Absent: accessory muscle use, rales, rhonchi, wheezes - Cardiovascular Cardiovascular exam: Present: RRR, +S1, +S2. Absent: diastolic murmur, gallop, rubs, systolic murmur - GI/Abdominal GI/Abdominal exam: Present: normal bowel sounds, soft, no peritoneal signs. Absent: distended, tenderness
[2016-12-14 10:31] VITALS: BP 128/83
== END 2016-12-12 13:27 | disposition home or self-care (01) ==
LOC: EMEROO 08:18 → 3ANU 08:18 → SUATTDRO 13:30 → 3ANU 15:45
PROVIDERS: ADMIT Internal Medicine; ATTEND Internal Medicine

== ENCOUNTER 2017-01-23 23:38 | Inpatient (IN) ==
--- NOTE | 2017-01-23 23:49 | Emergency Department Note ---
Disposition Clinical Impression: GIB (gastrointestinal bleeding), RUQ abdominal pain Disposition: Admitted As Inpatient Condition: Good General Adult HPI - General Chief complaint: ED Chest Pain Stated complaint: midsternal chest pain/and right abdominal pain Time Seen by Provider: 01/23/17 23:44 Source: patient Limitations: no limitations - History of Present Illness Pain Scale: 10 - Related Data Home Medications Medication Instructions Recorded Confirmed Docusate [Colace] 100 mg PO BID 01/24/17 01/24/17 Promethazine [Phenergan] 25 mg PO 01/24/17 Previous Rx's Medication Instructions Recorded Cyclobenzaprine [Flexeril] 10 mg PO BID PRN #14 tablet 05/24/16 Allergies Allergy/AdvReac Type Severity Reaction Status Date / Time No Known Allergies Allergy Verified 01/23/17 23:40 Past Medical History - Past Medical History Medical history: Reports: no medical history Surgical history: Reports: hysterectomy Psychiatric history: Reports: no psych history 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 - Social History Smoking Status: Never smoker Smokeless Tobacco Status: No Alcohol use: Reports: none Drug use: Reports: none, other Physical Exam - General Limitations: no limitations General appearance: alert Course Vital Signs Temperature 98.7 F 01/23/17 23:40 Pulse Rate 122 01/23/17 23:40 Respiratory Rate 22 01/23/17 23:40 Blood Pressure 106/79 01/23/17 23:40 O2 Sat by Pulse Oximetry 100 01/23/17 23:40 Temperature 97.6 F 01/24/17 03:55 Pulse Rate 74 01/24/17 03:55 Respiratory Rate 16 01/24/17 03:55 Blood Pressure 121/84 01/24/17 03:55 O2 Sat by Pulse Oximetry 98 01/24/17 03:55 Oxygen Delivery Oxygen Delivery Room Air Medical Decision Making - Lab Data Result diagrams: 01/24/17 06:11 01/24/17 00:10 Lab Results 01/24/17 01/24/17 01/24/17 Range/Units 00:10 00:10 00:10 WBC 11.7 H (4.3-11.1) K/mcL RBC 4.80 (3.82-4.97) M/mcL Hgb 14.0 (11.5-15.4) g/dL Hct 41.4 (35.3-44.9) % MCV 86.3 (83.0-100.0) fL MCH 29.2 (28.0-33.3) pg MCHC 33.8 (31.6-35.5) g/dL RDW 11.9 (11.5-14.5) % Plt Count 254 (140-400) K/mcL MPV 8.0 L (9.4-12.4) fL Immature Gran % 0.7 (0-4) % Seg Neutrophils % 56.4 % Lymphocytes % 29.6 % Monocytes % 8.8 % Eosinophils % 3.8 % Basophils % 0.7 % Neutrophils # 6.6 (1.6-8.9) K/mcL Lymphocytes # 3.5 (0.6-4.6) K/mcL Monocytes # 1.0 (0.0-1.3) K/mcL Eosinophils # 0.4 (0.0-0.6) K/mcL Basophils # 0.1 (0.0-0.2) K/mcL Sodium 139 (136-145) mEq/L Potassium 3.7 (3.5-4.5) mEq/L Chloride 106 (98-109) mEq/L Carbon Dioxide 22 (19-29) mEq/L BUN 6 L (7-20) mg/dL Creatinine 0.76 (0.57-1.11) mg/dL Est GFR ( Amer) > 60 (> 60) Est GFR (Non-Af Amer) > 60 (> 60) BUN/Creatinine Ratio 8 (6-26) Glucose 116 H (70-99) mg/dL Calculated Osmolality 287 (280-300) Lactic Acid (0.5-2.2) mmol/L Calcium 9.2 (8.6-10.8) mg/dL Total Bilirubin 0.6 (0.2-1.2) mg/dL AST 23 (5-34) Units/L ALT 31 (0-55) Units/L Alkaline Phosphatase 88 (38-126) Units/L Troponin I 0.00 (0-0.03) ng/mL Serum Total Protein 7.3 (6.0-8.3) g/dL Albumin 3.5 (3.5-5.0) g/dL Globulin 3.8 H (2.4-3.5) g/dL Albumin/Globulin Ratio 0.9 L (1.1-2.2) Amylase 37 (25-125) Units/L Lipase 22 (8-78) Units/L Urine Color (Yellow) Urine Clarity (Clear) Urine pH (5.0-8.0) pH Units Ur Specific [place] (1.010-1.025) Urine Protein (Neg-Trace) mg/dL Urine Glucose (UA) (Normal) mg/dL Urine Ketones (Negative) mg/dL Urine Blood (Negative) Urine Nitrite (Negative) Urine Bilirubin (Negative) Urine Urobilinogen (Normal) mg/dL Ur Leukocyte Esterase (Negative) Urine Microscopic RBC (0-3) per hpf Urine Microscopic WBC (0-3) per hpf Ur Squamous Epith Cells (None-Few) per lpf Urine Bacteria (None-Few) per hpf Hyaline Casts (None-Few) per lpf 01/24/17 01/24/17 Range/Units 00:48 04:36 WBC (4.3-11.1) K/mcL RBC (3.82-4.97) M/mcL Hgb (11.5-15.4) g/dL Hct (35.3-44.9) % MCV (83.0-100.0) fL MCH (28.0-33.3) pg MCHC (31.6-35.5) g/dL RDW (11.5-14.5) % Plt Count (140-400) K/mcL MPV (9.4-12.4) fL Immature Gran % (0-4) % Seg Neutrophils % % Lymphocytes % % Monocytes % % Eosinophils % % Basophils % % Neutrophils # (1.6-8.9) K/mcL Lymphocytes # (0.6-4.6) K/mcL Monocytes # (0.0-1.3) K/mcL Eosinophils # (0.0-0.6) K/mcL Basophils # (0.0-0.2) K/mcL Sodium (136-145) mEq/L Potassium (3.5-4.5) mEq/L Chloride (98-109) mEq/L Carbon Dioxide (19-29) mEq/L BUN (7-20) mg/dL Creatinine (0.57-1.11) mg/dL Est GFR ( Amer) (> 60) Est GFR (Non-Af Amer) (> 60) BUN/Creatinine Ratio (6-26) Glucose (70-99) mg/dL Calculated Osmolality (280-300) Lactic Acid 0.9 (0.5-2.2) mmol/L Calcium (8.6-10.8) mg/dL Total Bilirubin (0.2-1.2) mg/dL AST (5-34) Units/L ALT (0-55) Units/L Alkaline Phosphatase (38-126) Units/L Troponin I (0-0.03) ng/mL Serum Total Protein (6.0-8.3) g/dL Albumin (3.5-5.0) g/dL Globulin (2.4-3.5) g/dL Albumin/Globulin Ratio (1.1-2.2) Amylase (25-125) Units/L Lipase (8-78) Units/L Urine Color Dark Yellow (Yellow) Urine Clarity Cloudy A (Clear) Urine pH 6.5 (5.0-8.0) pH Units Ur Specific [place] 1.028 H (1.010-1.025) Urine Protein Trace (Neg-Trace) mg/dL Urine Glucose (UA) Normal (Normal) mg/dL Urine Ketones Trace H (Negative) mg/dL Urine Blood Negative (Negative) Urine Nitrite Negative (Negative) Urine Bilirubin Small H (Negative) Urine Urobilinogen Normal (Normal) mg/dL Ur Leukocyte Esterase Trace H (Negative) Urine Microscopic RBC 0-3 (0-3) per hpf Urine Microscopic WBC 0-3 (0-3) per hpf Ur Squamous Epith Cells Many H (None-Few) per lpf Urine Bacteria Moderate H (None-Few) per hpf Hyaline Casts None Seen (None-Few) per lpf Attestation Statement - Attestation Attestation: I examined this patient and my medical decision-making was reviewed with the RECENTERER/PA/Advanced Practice Nurse/Resident Physician. I agree with the documented findings, disposition and treatment plan as described except to the extent set forth below. [id number] time provided Patient complains of right upper quadrant and substernal chest pain for the past 3 days constantly. She states she has a history of a "bowel blockage" and is a difficult historian but sounds as if she has had an intraabdominal stent in the past. Her my review of records it appears in December she had choledocholithiasis with the deployment of a common bile duct stent
[2017-01-23] MEDS ORDERED: *HR* HYDROmorphone (PF) 1 MG/ML SYRINGE IVP ONE (23:51)
[2017-01-23] MEDS ORDERED: Ondansetron 4 MG/2 ML VIAL IVP ONE (23:51)
[2017-01-24 00:14] LABS: Basophils # 0.1 K/mcL (0.0-0.2); Basophils % 0.7 %; Eosinophils # 0.4 K/mcL (0.0-0.6); Eosinophils % 3.8 %; Hematocrit 41.4 % (35.3-44.9); Immature Granulocytes % 0.7 % (0-4); Lymphocytes # 3.5 K/mcL (0.6-4.6); Lymphocytes % 29.6 %; Mean Corpuscular HGB Conc 33.8 g/dL (31.6-35.5); Mean Corpuscular Hemoglobin 29.2 pg (28.0-33.3); Mean Corpuscular Volume 86.3 fL (83.0-100.0); Monocytes % 8.8 %; Neutrophils # 6.6 K/mcL (1.6-8.9); Platelet Count 254 K/mcL (140-400); Red Cell Distribution Width 11.9 % (11.5-14.5); Segmented Neutrophils % 56.4 %
--- NOTE | 2017-01-24 00:25 | Emergency Department Note ---
Disposition Clinical Impression: RUQ abdominal pain GIB (gastrointestinal bleeding) Qualifiers: GI bleed type/associated pathology: unspecified gastrointestinal hemorrhage type Qualified Code(s): K92.2 - Gastrointestinal hemorrhage, unspecified Disposition: Admitted As Inpatient Condition: Good Referrals: NO,PCP [Primary Care Provider] - Forms: ED Satisfaction Letter General Adult HPI - General Chief complaint: ED Chest Pain Stated complaint: midsternal chest pain/and right abdominal pain Time Seen by Provider: 01/23/17 23:44 Source: patient Limitations: no limitations Nursing Notes Reviewed: Yes Vital Signs Reviewed: Yes - History of Present Illness HPI Narrative: 41-year-old female presents to the emergency department with a chief complaint of abdominal pain. About 6 weeks ago she was admitted to the hospital due to choledocholithiasis and had an ERCP and stent placement. At that time she developed cholangitis and was on IV antibiotics. She was doing well and was supposed to have the stent removed about a week ago but missed the appointment. She has had a cholecystectomy about 2 years ago. She reports a fever of 102 yesterday. She states her pain is in the right upper quadrant and she has had difficulty eating. She denies any nausea or vomiting. She reports some light red blood in her stool yesterday. She denies any chest pain or shortness of breath. Denies any lightheadedness, syncope or dizziness. Denies any numbness or weakness in the extremities. Pain Scale: 10 - Related Data Home Medications Medication Instructions Recorded Confirmed Docusate Sodium [Dok] 100 mg PO BID PRN 12/06/16 12/06/16 Ibuprofen [Advil] 200 mg PO Q6H PRN 12/06/16 12/06/16 Polyethylene Glycol 3350 [MiraLAX 1 scoop PO DAILY PRN 12/06/16 12/06/16 Powder Bulk 17.9 Oz] Previous Rx's Medication Instructions Recorded Cyclobenzaprine [Flexeril] 10 mg PO BID PRN #14 tablet 05/24/16 Ondansetron ODT [Zofran ODT] 4 mg SL Q4HR PRN #10 tab.rapdis 07/01/16 Amoxicillin/Clavulanate [Augmentin] 875 mg PO BIDWM #8 tablet 12/12/16 OxyCODONE Immed Rel [Roxicodone 5 5 mg PO Q6HR PRN #30 tablet 12/12/16 MG] Allergies Allergy/AdvReac Type Severity Reaction Status Date / Time No Known Allergies Allergy Verified 01/23/17 23:40 All systems ED: reviewed and negative except as stated. Constitutional: Reports: fever Cardiovascular: Denies: chest pain Respiratory: Denies: cough, dyspnea Gastrointestinal: Reports: abdominal pain, nausea. 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 No murmurs, rubs or gallops. Respiratory: Breath sounds clear bilaterally. No wheezing, rales or rhonchi. No resp distress Abdomen: Abdomen is soft without any guarding, rebound or rigidity. She does have right upper quadrant tenderness with some voluntary guarding. This pain extends laterally into the right flank area. Eyes: Conjunctiva clear without scleral icterus HENT: Normocephalic, no signs of head injury. No oral mucosal lesions. Moist mucous membranes Neuro: Alert and oriented 3. No motor or sensory deficit. Musculoskeletal: No joint tenderness or swelling, no asymmetry, edema, calf tenderness or signs of DVT. Skin: No lesions. No diaphoresis. Normal turgor. Normal color Psych: Appropriate - General Limitations: no limitations General appearance: alert Course Course Narrative: Presents with right upper quadrant pain, fevers at home of 102. About 6 weeks ago she had choledocholithiasis and had an ERCP to have it removed. After was removed she develop obstruction of the CBD and ascending cholangitis. She subsequently had a stent placed, IV antibiotics and she improved. She was supposed to have her stent removed about a week ago but there was a complication with an appointment. On exam today she has right upper quadrant pain without surgical findings. She is not febrile. CT scan shows that the stent has migrated into the duodenum and with her pain, fever my concern is she is obstructed again and could be developing ascending cholangitis again. She also reports blood in the stool and I did perform a bedside rectal exam which showed brown stool that was heme positive. I discussed with the on-call hospitalist, Dr Pulliam who agrees with IV antibiotics and requests blood cultures. I did call the paging Center and confirmed that our box loader, Dr. Gonzales is wireless consultant and available tomorrow for consult. Patient will be admitted for pain control and further evaluation Vital Signs Temperature 98.7 F 01/23/17 23:40 Pulse Rate 122 01/23/17 23:40 Respiratory Rate 22 01/23/17 23:40 Blood Pressure 106/79 01/23/17 23:40 O2 Sat by Pulse Oximetry 100 01/23/17 23:40 Temperature 98.7 F 01/23/17 23:40 Pulse Rate 91 01/24/17 01:16 Respiratory Rate 16 01/24/17 01:16 Blood Pressure 120/73 01/24/17 01:16 O2 Sat by Pulse Oximetry 96 01/24/17 01:16 Oxygen Delivery Oxygen Delivery Room Air Medical Decision Making - Lab Data Result diagrams: 01/24/17 00:10 01/24/17 00:10 Lab Results 01/24/17 01/24/17 01/24/17 Range/Units 00:10 00:10 00:10 WBC 11.7 H (4.3-11.1) K/mcL RBC 4.80 (3.82-4.97) M/mcL Hgb 14.0 (11.5-15.4) g/dL Hct 41.4 (35.3-44.9) % MCV 86.3 (83.0-100.0) fL MCH 29.2 (28.0-33.3) pg MCHC 33.8 (31.6-35.5) g/dL RDW 11.9 (11.5-14.5) % Plt Count 254 (140-400) K/mcL MPV 8.0 L (9.4-12.4) fL Immature Gran % 0.7 (0-4) % Seg Neutrophils % 56.4 % Lymphocytes % 29.6 % Monocytes % 8.8 % Eosinophils % 3.8 % Basophils % 0.7 % Neutrophils # 6.6 (1.6-8.9) K/mcL Lymphocytes # 3.5 (0.6-4.6) K/mcL Monocytes # 1.0 (0.0-1.3) K/mcL Eosinophils # 0.4 (0.0-0.6) K/mcL Basophils # 0.1 (0.0-0.2) K/mcL Sodium 139 (136-145) mEq/L Potassium 3.7 (3.5-4.5) mEq/L Chloride 106 (98-109) mEq/L Carbon Dioxide 22 (19-29) mEq/L BUN 6 L (7-20) mg/dL Creatinine 0.76 (0.57-1.11) mg/dL Est GFR ( Amer) > 60 (> 60) Est GFR (Non-Af Amer) > 60 (> 60) BUN/Creatinine Ratio 8 (6-26) Glucose 116 H (70-99) mg/dL Calculated Osmolality 287 (280-300) Calcium 9.2 (8.6-10.8) mg/dL Total Bilirubin 0.6 (0.2-1.2) mg/dL AST 23 (5-34) Units/L ALT 31 (0-55) Units/L Alkaline Phosphatase 88 (38-126) Units/L Troponin I 0.00 (0-0.03) ng/mL Serum Total Protein 7.3 (6.0-8.3) g/dL Albumin 3.5 (3.5-5.0) g/dL Globulin 3.8 H (2.4-3.5) g/dL Albumin/Globulin Ratio 0.9 L (1.1-2.2) Amylase 37 (25-125) Units/L Lipase 22 (8-78) Units/L Urine Color (Yellow) Urine Clarity (Clear) Urine pH (5.0-8.0) pH Units Ur Specific [place] (1.010-1.025) Urine Protein (Neg-Trace) mg/dL Urine Glucose (UA) (Normal) mg/dL Urine Ketones (Negative) mg/dL Urine Blood (Negative) Urine Nitrite (Negative) Urine Bilirubin (Negative) Urine Urobilinogen (Normal) mg/dL Ur Leukocyte Esterase (Negative) Urine Microscopic RBC (0-3) per hpf Urine Microscopic WBC (0-3) per hpf Ur Squamous Epith Cells (None-Few) per lpf Urine Bacteria (None-Few) per hpf Hyaline Casts (None-Few) per lpf 01/24/17 Range/Units 00:48 WBC (4.3-11.1) K/mcL RBC (3.82-4.97) M/mcL Hgb (11.5-15.4) g/dL Hct (35.3-44.9) % MCV (83.0-100.0) fL MCH (28.0-33.3) pg MCHC (31.6-35.5) g/dL RDW (11.5-14.5) % Plt Count (140-400) K/mcL MPV (9.4-12.4) fL Immature Gran % (0-4) % Seg Neutrophils % % Lymphocytes % % Monocytes % % Eosinophils % % Basophils % % Neutrophils # (1.6-8.9) K/mcL Lymphocytes # (0.6-4.6) K/mcL Monocytes # (0.0-1.3) K/mcL Eosinophils # (0.0-0.6) K/mcL Basophils # (0.0-0.2) K/mcL Sodium (136-145) mEq/L Potassium (3.5-4.5) mEq/L Chloride (98-109) mEq/L Carbon Dioxide (19-29) mEq/L BUN (7-20) mg/dL Creatinine (0.57-1.11) mg/dL Est GFR ( Amer) (> 60) Est GFR (Non-Af Amer) (> 60) BUN/Creatinine Ratio (6-26) Glucose (70-99) mg/dL Calculated Osmolality (280-300) Calcium (8.6-10.8) mg/dL Total Bilirubin (0.2-1.2) mg/dL AST (5-34) Units/L ALT (0-55) Units/L Alkaline Phosphatase (38-126) Units/L Troponin I (0-0.03) ng/mL Serum Total Protein (6.0-8.3) g/dL Albumin (3.5-5.0) g/dL Globulin (2.4-3.5) g/dL Albumin/Globulin Ratio (1.1-2.2) Amylase (25-125) Units/L Lipase (8-78) Units/L Urine Color Dark Yellow (Yellow) Urine Clarity Cloudy A (Clear) Urine pH 6.5 (5.0-8.0) pH Units Ur Specific [place] 1.028 H (1.010-1.025) Urine Protein Trace (Neg-Trace) mg/dL Urine Glucose (UA) Normal (Normal) mg/dL Urine Ketones Trace H (Negative) mg/dL Urine Blood Negative (Negative) Urine Nitrite Negative (Negative) Urine Bilirubin Small H (Negative) Urine Urobilinogen Normal (Normal) mg/dL Ur Leukocyte Esterase Trace H (Negative) Urine Microscopic RBC 0-3 (0-3) per hpf Urine Microscopic WBC 0-3 (0-3) per hpf Ur Squamous Epith Cells Many H (None-Few) per lpf Urine Bacteria Moderate H (None-Few) per hpf Hyaline Casts None Seen (None-Few) per lpf - EKG Data EKG #1 EKG results narrative: EKG shows sinus tachycardia with a rate of 120 beats a minute. There is no ST elevation or depression. No ischemic T-wave changes. Intervals within normal limits. Previous EKG and 12/06/16 shows similar wave morphology without any acute ischemic changes.
[2017-01-24] MEDS ORDERED: 0.9 % Sodium Chloride 1,000 ML IVC ONE (00:26)
[2017-01-24] MEDS ORDERED: *HR* HYDROmorphone (PF) 1 MG/ML SYRINGE IVP ONE (00:28)
[2017-01-24 00:29] LABS: Alanine Aminotransferase 31 Units/L (0-55); Albumin 3.5 g/dL (3.5-5.0); Albumin/Globulin Ratio 0.9 (1.1-2.2); Alkaline Phosphatase 88 Units/L (38-126); Amylase 37 Units/L (25-125); Aspartate Amino Transferase 23 Units/L (5-34); BUN/Creatinine Ratio 8 (6-26); Bilirubin,Total 0.6 mg/dL (0.2-1.2); Blood Urea Nitrogen 6 mg/dL (7-20); Calcium 9.2 mg/dL (8.6-10.8); Carbon Dioxide 22 mEq/L (19-29); Chloride 106 mEq/L (98-109); Globulin 3.8 g/dL (2.4-3.5); Glucose 116 mg/dL (70-99); Lipase 22 Units/L (8-78); Osmolality,Calculated 287 (280-300); Potassium 3.7 mEq/L (3.5-4.5); Sodium 139 mEq/L (136-145); Total Protein 7.3 g/dL (6.0-8.3); eGFR For African Americans > 60 (> 60); eGFR For Non-African Americans > 60 (> 60)
[2017-01-24 01:16] LABS: Bilirubin,Urine Small (Negative); Blood,Urine Negative (Negative); Clarity,Urine Cloudy (Clear); Color,Urine Dark Yellow (Yellow); Glucose,Urine (UA) Normal (Normal); Ketones,Urine Trace mg/dL (Negative); Leukocyte Esterase,Urine Trace (Negative); Nitrite,Urine Negative (Negative); PH,Urine 6.5 pH Units (5.0-8.0); Protein,Urine Trace mg/dL (Neg-Trace); Specific Gravity,Urine 1.028 (1.010-1.025); Urobilinogen,Urine Normal (Normal)
[2017-01-24 01:19] LABS: Bacteria,Urine Moderate per hpf (None-Few); Hyaline Casts,Urine None Seen per lpf (None-Few); RBC,Urine 0-3 per hpf (0-3); Squamous Epithelial Cell,Urine Many per lpf (None-Few); WBC,Urine 0-3 per hpf (0-3)
[2017-01-24] MEDS ORDERED: *HR* HYDROmorphone 2 MG/ML SYRINGE IVP ONE (02:15)
[2017-01-24] MEDS ORDERED: Piperacillin/Tazobactam 3.375 GM in D5% in Water (Mini-Bag+) 100 ML IVPB ONE (02:38)
[2017-01-24] MEDS ORDERED: *HR* Promethazine 25 MG/ML VIAL IVP STA (02:50)
[2017-01-24] MEDS: *HR* HYDROmorphone (PF) 1 MG/ML SYRINGE IVP PRN ×5 (04:40→22:37)
[2017-01-24] MEDS ORDERED: Naloxone 0.4 MG/ML INJ IVP PRN (05:28)
[2017-01-24] MEDS ORDERED: Acetaminophen 325 MG TABLET PO PRN (05:28)
[2017-01-24 06:28] LABS: Basophils # 0.1 K/mcL (0.0-0.2); Basophils % 0.7 %; Eosinophils # 0.4 K/mcL (0.0-0.6); Eosinophils % 4.3 %; Hematocrit 37.2 % (35.3-44.9); Hemoglobin 12.5 g/dL (11.5-15.4); Immature Granulocytes % 0.7 % (0-4); Lymphocytes # 2.9 K/mcL (0.6-4.6); Lymphocytes % 30.3 %; Mean Corpuscular HGB Conc 33.6 g/dL (31.6-35.5); Mean Corpuscular Hemoglobin 29.1 pg (28.0-33.3); Mean Corpuscular Volume 86.7 fL (83.0-100.0); Mean Platelet Volume 8.2 fL (9.4-12.4); Monocytes # 0.8 K/mcL (0.0-1.3); Monocytes % 8.1 %; Neutrophils # 5.4 K/mcL (1.6-8.9); Platelet Count 220 K/mcL (140-400); Red Blood Count 4.29 M/mcL (3.82-4.97); Red Cell Distribution Width 12.1 % (11.5-14.5); Segmented Neutrophils % 55.9 %
[2017-01-24 06:43] LABS: Alanine Aminotransferase 24 Units/L (0-55); Albumin 3.1 g/dL (3.5-5.0); Albumin/Globulin Ratio 0.9 (1.1-2.2); Alkaline Phosphatase 76 Units/L (38-126); Aspartate Amino Transferase 16 Units/L (5-34); BUN/Creatinine Ratio 10 (6-26); Bilirubin,Total 0.5 mg/dL (0.2-1.2); Blood Urea Nitrogen 7 mg/dL (7-20); Calcium 8.4 mg/dL (8.6-10.8); Carbon Dioxide 21 mEq/L (19-29); Chloride 109 mEq/L (98-109); Globulin 3.3 g/dL (2.4-3.5); Glucose 116 mg/dL (70-99); Magnesium 1.7 mg/dL (1.6-2.6); Osmolality,Calculated 283 (280-300); Potassium 3.5 mEq/L (3.5-4.5); Sodium 137 mEq/L (136-145); Total Protein 6.4 g/dL (6.0-8.3); eGFR For African Americans > 60 (> 60); eGFR For Non-African Americans > 60 (> 60)
[2017-01-24] MEDS: D5% in 0.45% NACL 1,000 ML IVC SCH (06:48)
[2017-01-24] MEDS: Pantoprazole 40 MG VIAL IVP SCH (06:48)
[2017-01-24] MEDS: Ondansetron 4 MG/2 ML VIAL IVP PRN ×2 (06:51→16:17)
--- NOTE | 2017-01-24 07:12 | Internal Med History&Physical ---
Date of Encounter: 01/24/17 Time of Encounter: 05:00 Assessment and Plan (1) RUQ abdominal pain Current visit: Yes Status: Acute could be recurrent cholangitis- patient has fever, mild leukocytosis, RUQ abdominal pain; CT abdomen shows displaced biliary stent, now in duodenum. GI consult for stent removal and possible repeat stenting; keep NPO for now, IV hydration. pain control with PRN IV Morphine; PRN antiemetics and supportive care; (2) GIB (gastrointestinal bleeding) Current visit: Yes Status: Acute could be hemorrhoids/diverticular bleed/cancer; patient does have family h/o- colon cancer in her mother and had previous colonoscopy which showed polyps, and she was due for repeat scope, but had poor bowel prep several times before; GI consult for possible inpatient Colonoscopy. Monitor Hb closely; fecal occult blood testing in ER was positive. Qualifiers: GI bleed type/associated pathology: unspecified gastrointestinal hemorrhage type Qualified Code(s): K92.2 - Gastrointestinal hemorrhage, unspecified (3) Restless leg syndrome Current visit: Yes Status: Chronic Internal Medicine - H&P: HPI Chief complaint: Abdominal pain Admitted From: Emergency Dept Plans for Post Hospital Care: Home History of present illness: Ms. Partida is a 41 year old female with h/o- recent biliary stent placement, presents with c/o- abdominal pain for 3 days. She was recently admitted for similar complaints and underwent ERCP and biliary stent placement, and was supposed to followup with GI to plan stent removal but she missed it due to some confusion regarding dates. She reports right upper abdominal pain, moderate to severe, aching pain, associated with nausea, nonbloody emesis, lower abdominal pain and pressure, painless rectal bleeding. SHe also started spiking fever since yesterday, about 102 degrees at home. Last bowel movement 4 days ago. She has h/o- intermittent mild hematochezia, that is now getting worse, with laureen bright red bleeding per rectum, painless, not associated with bowel movements. Past Med Surg Social Fam HX - Past Medical History Medical history: no medical history Psychiatric history: no psych history - Past Surgical History Surgical History: cholecystectomy, hysterectomy - Social History Smoking Status: Never smoker Smokeless Tobacco Status: No Alcohol use: none Drug use: none, other Current living situation: Home, With Family Activity Level: Independent ambulation Recent Out of Country Travel Within the Last 8 Weeks: No - Family History Father Hx Family Cardiac Disorders: Yes (HTN, CVA) Hx Family Respiratory Disorders: Yes (COPD) Hx Family Cancer: No Hx Family GI Disorders: Yes (GERD) Hx Family Genitourinary Disorders: No Hx Family Endocrine Disorder: No Hx Family Musculoskeletal Disorders: No Hx Family Neuromuscular Disorders: No Hx Family Neurologic Disorders: No Hx Family HEENT Disorders: No Hx Family Autoimmune Disorders: No Hx Family Reproductive Disorders: No Hx Family Psychosocial Disorders: No Hx Family Medical Disorders: No Mother Hx Family Cardiac Disorders: No Hx Family Respiratory Disorders: No Hx Family Cancer: Yes (Lung, colon, breast, bone) Hx Family GI Disorders: Yes (GERD) Hx Family Genitourinary Disorders: No Hx Family Endocrine Disorder: No Hx Family Musculoskeletal Disorders: No Hx Family Neuromuscular Disorders: No Hx Family Neurologic Disorders: No Hx Family HEENT Disorders: No Hx Family Autoimmune Disorders: No Hx Family Reproductive Disorders: No Hx Family Psychosocial Disorders: No Hx Family Medical Disorders: No Internal Medicine - H&P: Meds Cyclobenzaprine [Flexeril] 10 mg PO BID PRN #14 tablet 05/24/16 [Rx] Docusate [Colace] 100 mg PO BID 01/24/17 [History] Promethazine [Phenergan] 25 mg PO 01/24/17 [History] Allergies No Known Allergies Allergy (Verified 01/23/17 23:40) All Systems PM: A 10-system review of systems was performed and is negative for pertinent findings except as documented above in the HPI. - Constitutional Constitutional: chills, fever(s), weakness - EENT Eyes: no change in vision, no discharge, no pain, no photophobia Ears: no ear discharge, no ear pain, no tinnitus Nose, mouth and throat: no dysphagia, no nasal discharge, no neck pain, no sore throat - Cardiovascular Cardiovascular ROS IM: no chest pain, no diaphoresis, no dyspnea, no lightheadedness, no palpitations, no syncope - Respiratory Respiratory: no cough, no dyspnea, no wheezing, no excessive phlegm production - Gastrointestinal Gastrointestinal: abdominal pain, hematochezia, nausea, vomiting - Genitourinary Genitourinary: no change in urinary stream, no dysuria, no flank pain, no hematuria - Musculoskeletal Musculoskeletal ROS IM: no numbness, no tingling - Integumentary Integumentary IM: no rash, no unusual bruising - Neurological Neurological ROS: no confusion, no convulsions, no focal weakness, no numbness, no tingling, no tremor(s) - Hematologic/Lymphatic Hematologic/Lymphatic: no easy bruising - Constitutional Vitals: Temp Pulse Resp BP Pulse Ox 97.6 F 74 16 121/84 98 01/24/17 03:55 01/24/17 03:55 01/24/17 03:55 01/24/17 03:55 01/24/17 03:55 General appearance: Present: mild distress (due to pain), A&O X 3, answers questions appropriately - Respiratory Respiratory exam: Present: CTAB. Absent: accessory muscle use, rales, rhonchi, wheezes - Cardiovascular Cardiovascular exam: Present: RRR, +S1, +S2. Absent: diastolic murmur, gallop, rubs, systolic murmur - GI/Abdominal GI/Abdominal exam: Present: normal bowel sounds, soft (RUQ tenderness, suprapubic tenderness), no peritoneal signs. Absent: distended, tenderness - Extremities Exam Extremities exam: Present: full ROM, warm, radial pulses palpable and symetrical. Absent: calf tenderness, cyanotic, pedal edema - Neurological Exam Neurological exam: Present: CN II-XII intact, oriented X3, no focal deficits. Absent: pronater drift, facial droop, speech deficit - Skin Skin exam: Present: dry, intact Internal Med - H&P Results - Labs CBC & Chem 7: 01/24/17 06:11 01/24/17 06:11 Labs: Short CBC 01/24/17 Range/Units 06:11 WBC 9.7 (4.3-11.1) K/mcL Hgb 12.5 D (11.5-15.4) g/dL Hct 37.2 (35.3-44.9) % Plt Count 220 (140-400) K/mcL Neutrophils # 5.4 (1.6-8.9) K/mcL BMP 01/24/17 06:11 Sodium 137 Potassium 3.5 Chloride 109 Carbon Dioxide 21 BUN 7 Creatinine 0.70 Glucose 116 H Calcium 8.4 L Liver Function 01/24/17 Range/Units 06:11 Total Bilirubin 0.5 (0.2-1.2) mg/dL AST 16 (5-34) Units/L ALT 24 (0-55) Units/L Alkaline Phosphatase 76 (38-126) Units/L Albumin 3.1 L (3.5-5.0) g/dL
[2017-01-24] MEDS: Piperacillin/Tazobactam 3.375 GM in D5% in Water (Mini-Bag+) 100 ML IVPB SCH ×2 (11:05→18:11)
--- NOTE | 2017-01-24 12:29 | Gastroenterology Consult Note ---
<Freddy Lou - Last Filed: 01/24/17 12:27> Date of Encounter: 01/24/17 Time of Encounter: 11:25 - Assessment and plan (1) RUQ abdominal pain Current Visit: No Status: Acute Assessment and plan: ERCP completed 12/07/2016 choledocholithiasis found and biliary sphincterotomy was performed. LFTs worsened following ERCP and repeat ERCP completed 12/09/2016 , nothing found in the biliary tree and one temporary stent was placed in the CBD. Plan for stent removal 6-8 weeks following insertion. Patient did not show up for her appointment to have stent removal scheduled. CT he now feels has migrated distally into the mid to distal duodenum. Plan for ERCP tomorrow with stent removal. NPO at midnight (2) BRBPR (bright red blood per rectum) Current Visit: Yes Status: Acute Assessment and plan: Pt with BRBPR for the past 3 days. Hgb 12.5 today. Continue to monitor CBC. Consider colonoscopy inpatient vs outpatient. Will discuss with Dr. Gonzales. - Time Spent With Patient Total time spent is greater than 50% in coordination of care (as documented) at patient's floor/unit and/or counseling patient: GI History of Present Illness - Data of Consult Patient: known to practice within the last 3 years Consult date: 01/24/17 Requesting Physician: Marcia Granados - Consult Narrative Reason for consult: RUQ pain History of present illness: Ms. Partida is a 41 year old female with PMHx of with history of cholecystectomy 2 years ago, recent biliary stent placement presented with c/o abdominal pain for 3 days. She was recently admitted for similar complaints and underwent ERCP and biliary stent placement, and was scheduled for follow up on 01/13/2017, but did not show up for her appointment. She reports right upper abdominal pain, moderate to severe, aching pain, associated with nausea, nonbloody emesis, lower abdominal pain and pressure, painless rectal bleeding. She reported fever of about 102 degrees at home, but has been afebrile since admission. Last bowel movement 4 days ago. She has h/o- intermittent mild hematochezia, that is now getting worse, with laureen bright red bleeding per rectum, painless, not associated with bowel movements. Procedures: ERCP 12/09/2016 Dr. Gonzales: Nothing found in biliary tree, one temporary stent placed in the CBD, stent removal in 6-8 weeks. ERCP 12/07/2016 Dr. Gonzales: Choledocholithiasis, biliary sphincterotomy Colonoscopy 09/04/2012 Dr. Bedolla: Segmental moderate inflammation was found in the sigmoid colon, in the descending colon and in the splenic flexure secondary to left-sided colitis. Recommended repeat cscope in 1 year with 2 day prep. NSAIDs: Ibuprofen Anticoagulation: None Past Med Surg Social Fam HX - Past Medical History Medical history: no medical history Psychiatric history: no psych history - Past Surgical History Surgical History: cholecystectomy, hysterectomy - Social History Smoking Status: Never smoker Smokeless Tobacco Status: No Alcohol use: none Drug use: none, other - Family History Father Hx Family Cardiac Disorders: Yes (HTN, CVA) Hx Family Respiratory Disorders: Yes (COPD) Hx Family Cancer: No Hx Family GI Disorders: Yes (GERD) Hx Family Genitourinary Disorders: No Hx Family Endocrine Disorder: No Hx Family Musculoskeletal Disorders: No Hx Family Neuromuscular Disorders: No Hx Family Neurologic Disorders: No Hx Family HEENT Disorders: No Hx Family Autoimmune Disorders: No Hx Family Reproductive Disorders: No Hx Family Psychosocial Disorders: No Hx Family Medical Disorders: No Mother Hx Family Cardiac Disorders: No Hx Family Respiratory Disorders: No Hx Family Cancer: Yes (Lung, colon, breast, bone) Hx Family GI Disorders: Yes (GERD) Hx Family Genitourinary Disorders: No Hx Family Endocrine Disorder: No Hx Family Musculoskeletal Disorders: No Hx Family Neuromuscular Disorders: No Hx Family Neurologic Disorders: No Hx Family HEENT Disorders: No Hx Family Autoimmune Disorders: No Hx Family Reproductive Disorders: No Hx Family Psychosocial Disorders: No Hx Family Medical Disorders: No - Gastrointestinal Gastrointestinal: Present: as per HPI - Constitutional Constitutional: as per HPI - EENT Eyes: as per HPI Ears: Present: as per HPI Nose, mouth and throat: Present: as per HPI - Cardiovascular Cardiovascular ROS: Present: as per HPI - Respiratory Respiratory IM: Present: as per HPI - Genitourinary Genitourinary: Absent: change in color, Urinary frequency - Neurological ROS Neurological GI: Present: as per HPI - Hematologic/Lymphatic Hematologic/Lymphatic pediatric: Present: as per HPI - Musculoskeletal Musculoskeletal ROS GI: Present: as per HPI - Integumentary Integumentary GI: Present: as per HPI - Psychiatric ROS Psychiatric GI: Present: as per HPI - Endocrine Endocrine IM: Present: as per HPI - Constitutional Vitals: Temp Pulse Resp BP Pulse Ox 98.1 F 72 16 101/65 96 01/24/17 11:09 01/24/17 11:09 01/24/17 11:09 01/24/17 11:09 01/24/17 11:09 General appearance: Present: cooperative, A&O X 3, no acute distress, answers questions appropriately - Head Head exam: Present: atraumatic, normocephalic - Eye Eye exam: Present: normal appearance, sclera anicteric - ENT ENT exam: Present: mucous membranes dry - Neck Neck exam general surgery: Present: normal inspection, trachea midline - Respiratory Respiratory exam: Present: CTAB. Absent: rales, rhonchi - Cardiovascular Cardiovascular exam: Present: RRR, +S1, +S2 - GI/Abdominal GI/Abdominal exam: Present: guarding, soft, tenderness (RUQ), no peritoneal signs. Absent: distended, firm - Rectal Rectal exam: Present: deferred - Extremities Exam Extremities exam: Present: warm - Neurological Exam Neurological exam: Present: no focal deficits - Psychiatric Psychiatric exam: Present: normal affect, normal mood - Skin Skin exam: Present: dry, intact, normal color, warm Results - Labs CBC & Chem 7: 01/24/17 06:11 01/24/17 06:11 Labs: Last Result Calcium 8.4 mg/dL (8.6-10.8) L 01/24/17 06:11 Troponin I 0.00 ng/mL (0-0.03) 01/24/17 00:10 Entire Visit Hgb 12.5 g/dL (11.5-15.4) D 01/24/17 06:11 Hct 37.2 % (35.3-44.9) 01/24/17 06:11 Total Bilirubin 0.5 mg/dL (0.2-1.2) 01/24/17 06:11 AST 16 Units/L (5-34) 01/24/17 06:11 ALT 24 Units/L (0-55) 01/24/17 06:11 Amylase 37 Units/L (25-125) 01/24/17 00:10 Lipase 22 Units/L (8-78) 01/24/17 00:10 Consult Discharge Plan - Plan Referrals: NO,PCP [Primary Care Provider] - <Sondra Gonzales - Last Filed: 01/24/17 17:33> Date of Encounter: 01/24/17 Time of Encounter: 15:00 - Time Spent With Patient Total time spent is greater than 50% in coordination of care (as documented) at patient's floor/unit and/or counseling patient: GI History of Present Illness - Data of Consult Requesting Physician: Marcia Granados - Consult Narrative History of present illness: Ms. Partida is a 41 year old female - Constitutional Vitals: Temp Pulse Resp BP Pulse Ox 98.4 F 69 15 101/65 97 01/24/17 15:19 01/24/17 15:19 01/24/17 15:19 01/24/17 11:09 01/24/17 15:19 Results - Labs CBC & Chem 7: 01/24/17 06:11 01/24/17 06:11 Labs: Last Result Calcium 8.4 mg/dL (8.6-10.8) L 01/24/17 06:11 Troponin I 0.00 ng/mL (0-0.03) 01/24/17 00:10 Entire Visit Hgb 12.5 g/dL (11.5-15.4) D 01/24/17 06:11 Hct 37.2 % (35.3-44.9) 01/24/17 06:11 Total Bilirubin 0.5 mg/dL (0.2-1.2) 01/24/17 06:11 AST 16 Units/L (5-34) 01/24/17 06:11 ALT 24 Units/L (0-55) 01/24/17 06:11 Amylase 37 Units/L (25-125) 01/24/17 00:10 Lipase 22 Units/L (8-78) 01/24/17 00:10 - Attending Attestation I examined this patient and my medical decision-making was reviewed with the PC MAINTENANCE TECHNICIAN/PA/Advanced Practice Nurse/Resident Physician. I agree with the documented findings, disposition and treatment plan as described except to the extent set forth below.
--- NOTE | 2017-01-24 13:11 | Event Note ---
Date of Encounter: 01/24/17 Time of Encounter: 09:30 Patient seen and examined. On examination, patient resting supine in bed. She states that her pain is currently controlled. She continues to endorse pain to her right upper quadrant and across her lower abdomen. Patient states that yesterday when she was grocery shopping, she had on White shorts and when she came home from grocery shopping, the white shorts were full of blood. She denied any pain or cramping and was unaware that she had rectal bleeding. Patient stating she also felt as if she had to move her bowels yesterday but when she moved her bowels, was pure blood. She has remained hemodynamically stable thus far. GI is on board. Patient has attempted a colonoscopy several times outpatient that has been unable to have been done at this point secondary to poor bowel prep. Recommended patient colonoscopy at GIs discretion.. We will continue to trend and transfuse if indicated. Vital signs are stable. Abdominal CT revealing migration of her biliary stent into that one with nonobstructive stones. Patient did not show up to have her stent removed as scheduled. GI is on board, plan is for repeat ERCP tomorrow with stent removal. Continue Zosyn. Abnormal urinalysis noted, patient denies dysuria, culture pending. Good coverage with Zosyn. We will continue with pain and nausea control. ITS Impressions Abdomen/Pelvis CT 01/24/17 00:26 IMPRESSION: 1. The patient's common bile duct stent has migrated distally since placement in December, and is now within the mid to distal duodenum. No associated bowel obstruction. 2. Mild intrahepatic biliary ductal dilatation, not significantly changed from recent comparison studies. 3. Nonobstructing nephrolithiasis. D/ / Zafar Lau MD / Zafar Lau MD Interpreting Provider: Zafar Lau MD
[2017-01-24] MEDS: *HR* HYDROcodone/Acet 5/325 mg TABLET PO PRN ×2 (16:17→21:08)
--- NOTE | 2017-01-24 17:06 | Electrocardiograph Report ---
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
[2017-01-25] MEDS: *HR* HYDROcodone/Acet 5/325 mg TABLET PO PRN (01:53)
[2017-01-25] MEDS: Ondansetron 4 MG/2 ML VIAL IVP PRN ×3 (01:55→22:01)
[2017-01-25] MEDS: Piperacillin/Tazobactam 3.375 GM in D5% in Water (Mini-Bag+) 100 ML IVPB SCH ×3 (02:20→18:43)
[2017-01-25] MEDS: *HR* HYDROmorphone (PF) 1 MG/ML SYRINGE IVP PRN ×5 (04:53→22:57)
[2017-01-25 05:21] LABS: Basophils # 0.1 K/mcL (0.0-0.2); Basophils % 0.9 %; Eosinophils # 0.5 K/mcL (0.0-0.6); Eosinophils % 6.7 %; Hematocrit 33.3 % (35.3-44.9); Hemoglobin 11.3 g/dL (11.5-15.4); Immature Granulocytes % 0.9 % (0-4); Lymphocytes # 2.4 K/mcL (0.6-4.6); Lymphocytes % 29.6 %; Mean Corpuscular HGB Conc 33.9 g/dL (31.6-35.5); Mean Corpuscular Hemoglobin 29.5 pg (28.0-33.3); Mean Corpuscular Volume 86.9 fL (83.0-100.0); Mean Platelet Volume 8.7 fL (9.4-12.4); Monocytes # 0.7 K/mcL (0.0-1.3); Monocytes % 8.3 %; Neutrophils # 4.3 K/mcL (1.6-8.9); Platelet Count 214 K/mcL (140-400); Red Blood Count 3.83 M/mcL (3.82-4.97); Segmented Neutrophils % 53.6 %
[2017-01-25 05:37] LABS: BUN/Creatinine Ratio 9 (6-26); Blood Urea Nitrogen 6 mg/dL (7-20); Calcium 8.5 mg/dL (8.6-10.8); Carbon Dioxide 22 mEq/L (19-29); Chloride 107 mEq/L (98-109); Glucose 102 mg/dL (70-99); Osmolality,Calculated 280 (280-300); Potassium 3.7 mEq/L (3.5-4.5); Sodium 136 mEq/L (136-145); eGFR For African Americans > 60 (> 60); eGFR For Non-African Americans > 60 (> 60)
[2017-01-25] MEDS: Pantoprazole 40 MG VIAL IVP SCH ×2 (05:49→07:32)
[2017-01-25] MEDS: D5% in 0.45% NACL 1,000 ML IVC SCH ×2 (06:05→19:20)
--- NOTE | 2017-01-25 13:30 | Internal Med Progress Note ---
Date of Encounter: 01/25/17 Time of Encounter: 08:55 - Assessment and plan (1) RUQ abdominal pain Current Visit: Yes Status: Acute Assessment and plan: Likely due to biliary stent migration. Awaiting upper GI endoscopy and ERCP today. Will follow results. Continue supportive care and pain control in the meantime. (2) GIB (gastrointestinal bleeding) Current Visit: Yes Status: Acute Assessment and plan: Hemoglobin 11.3. GI following. We will follow the recommendations as to need for inpatient colonoscopy or if it can be done as outpatient. For now continue PPI and continue to monitor blood counts. Qualifiers: GI bleed type/associated pathology: unspecified gastrointestinal hemorrhage type Qualified Code(s): K92.2 - Gastrointestinal hemorrhage, unspecified - Subjective Interval history: Patient is feeling slightly better compared to yesterday. Pain is better controlled. No new episodes of bleeding per rectum. Continues to have some nausea. - Constitutional Vitals: Temp Pulse Resp BP Pulse Ox 98.2 F 66 16 104/71 97 01/25/17 11:29 01/25/17 11:29 01/25/17 11:29 01/25/17 11:29 01/25/17 11:29 General appearance: Present: cooperative, mild distress, A&O X 3, answers questions appropriately - Neck Neck exam general surgery: Present: supple, trachea midline. Absent: lymphadenopathy - Respiratory Respiratory exam: Present: CTAB. Absent: accessory muscle use, rales, rhonchi, wheezes - Cardiovascular Cardiovascular exam: Present: RRR, +S1, +S2. Absent: diastolic murmur, gallop, rubs, systolic murmur - GI/Abdominal GI/Abdominal exam: Present: normal bowel sounds, soft, tenderness (Right upper quadrant), no peritoneal signs. Absent: distended - Extremities Exam Extremities exam: Present: warm, radial pulses palpable and symetrical. Absent : calf tenderness, cyanotic, pedal edema Internal Medicine: Result - Labs CBC & Chem 7: 01/25/17 04:36 01/25/17 04:36 Labs: Short CBC 01/25/17 Range/Units 04:36 WBC 8.0 (4.3-11.1) K/mcL Hgb 11.3 L (11.5-15.4) g/dL Hct 33.3 L (35.3-44.9) % Plt Count 214 (140-400) K/mcL Neutrophils # 4.3 (1.6-8.9) K/mcL [facility] 01/25/17 04:36 Sodium 136 Potassium 3.7 Chloride 107 Carbon Dioxide 22 BUN 6 L Creatinine 0.70 Glucose 102 H Calcium 8.5 L Consult Discharge Plan - Plan Referrals: NO,PCP [Primary Care Provider] - - Attending Attestation This document has been at least partially created by [employer] recognition technology by Dr. Cruz. Errors in grammar, wording or other phrases may exist. If errors are found after the documentation is signed, they will be addressed individually in the addendum section of this document when appropriate.
[2017-01-26] MEDS: Piperacillin/Tazobactam 3.375 GM in D5% in Water (Mini-Bag+) 100 ML IVPB SCH ×3 (02:29→16:32)
[2017-01-26] MEDS: *HR* HYDROmorphone (PF) 1 MG/ML SYRINGE IVP PRN ×6 (03:03→20:27)
[2017-01-26] MEDS: D5% in 0.45% NACL 1,000 ML IVC SCH (03:12)
[2017-01-26 05:08] LABS: Basophils # 0.1 K/mcL (0.0-0.2); Eosinophils # 0.6 K/mcL (0.0-0.6); Eosinophils % 7.8 %; Hematocrit 33.3 % (35.3-44.9); Hemoglobin 11.4 g/dL (11.5-15.4); Immature Granulocytes % 1.2 % (0-4); Lymphocytes # 2.7 K/mcL (0.6-4.6); Lymphocytes % 32.9 %; Mean Corpuscular HGB Conc 34.2 g/dL (31.6-35.5); Mean Corpuscular Volume 87.6 fL (83.0-100.0); Mean Platelet Volume 8.4 fL (9.4-12.4); Monocytes # 0.7 K/mcL (0.0-1.3); Platelet Count 207 K/mcL (140-400); Red Cell Distribution Width 11.9 % (11.5-14.5); Segmented Neutrophils % 48.1 %
[2017-01-26 05:09] LABS: INR 1.1; Prothrombin Time 11.4 Seconds (9.4-12.1)
[2017-01-26 05:11] LABS: Activated Partial Thrombo Time 27.3 Seconds (26.0-36.0)
[2017-01-26 05:25] LABS: Alanine Aminotransferase 18 Units/L (0-55); Albumin 2.9 g/dL (3.5-5.0); Albumin/Globulin Ratio 0.9 (1.1-2.2); Alkaline Phosphatase 64 Units/L (38-126); Aspartate Amino Transferase 13 Units/L (5-34); BUN/Creatinine Ratio 7 (6-26); Bilirubin,Total 0.5 mg/dL (0.2-1.2); Calcium 8.4 mg/dL (8.6-10.8); Carbon Dioxide 24 mEq/L (19-29); Chloride 105 mEq/L (98-109); Globulin 3.2 g/dL (2.4-3.5); Glucose 78 mg/dL (70-99); Osmolality,Calculated 276 (280-300); Potassium 3.4 mEq/L (3.5-4.5); Sodium 135 mEq/L (136-145); Total Protein 6.1 g/dL (6.0-8.3); eGFR For African Americans > 60 (> 60); eGFR For Non-African Americans > 60 (> 60)
[2017-01-26 05:27] LABS: Blood Urea Nitrogen 5 mg/dL (7-20)
[2017-01-26] MEDS: Pantoprazole 40 MG VIAL IVP SCH (06:27)
--- NOTE | 2017-01-26 10:57 | Anesthesia Evaluation PreOp ---
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) Other Medical History: Denies Any Significant HX Anesthesia History: No Prior Anesthetic Complications, Past Anesthesia (GB, CLARK, ERCP 12/09/16) : No ([facility]) Alcohol Use: none Drug use: none, other Medications and Allergies Cyclobenzaprine [Flexeril] 10 mg PO 01/24/17 [History] Promethazine [Phenergan] 25 mg PO 01/24/17 [History] Allergies No Known Allergies Allergy (Verified 01/23/17 23:40) - Meds/Allergy Pre-op Review Medications Reviewed: Yes Allergies Reviewed: Yes Beta Blockers on Current Med List: No Anesthesia Results - Labs 01/26/17 04:04 01/26/17 04:04 Anesthesia Exam O2 Sat Weight 98.1 kg O2 Sat by Pulse Oximetry 98 O2 Sat by Pulse Oximetry 98 O2 Sat by Pulse Oximetry 98 O2 Sat by Pulse Oximetry 96 O2 Sat by Pulse Oximetry 98 O2 Sat by Pulse Oximetry 97 O2 Sat by Pulse Oximetry 96 O2 Sat by Pulse Oximetry 96 Vital Signs Temp Pulse Resp BP Pulse Ox 98.7 F 122 22 106/79 100 01/23/17 23:40 01/23/17 23:40 01/23/17 23:40 01/23/17 23:40 01/23/17 23:40 Vital Signs/O2 Sat, Most Current Temp Pulse Resp BP Pulse Ox 97.9 F 65 18 96/62 98 01/26/17 11:11 01/26/17 11:11 01/26/17 11:11 01/26/17 11:11 01/26/17 11:11 Height: 5'2'' Weight: 216# NPO (# of Hours): > 8 hrs Pain Scale: 0 Pain Scale Used: Numeric (1 - 10) - HEENT Pupil (Motor): Pupils equal, EOMI Mallampati: II Teeth: Edentulous Denture Type: Upper: Complete, Lower: Complete Oral Opening: Greater than 3 - WINDOW CLERK LOC: Oriented WINDOW CLERK Motor: Normal RUE, Normal LUE, Normal RLE, Normal LLE, Normal Face WINDOW CLERK Sensory: Normal: RUE, LUE, RLE, LLE, Face - Cardiac Rhythm: Regular Murmur: None JVD: No Carotid Bruit: No - Pulmonary Breath Sounds: bilateral Clear Respiratory Effort: Symmetrical Anesthesia Assess/Plan ASA Score: 3 Modified Alpine Scale for Level of Consciousness: Cooperative, oriented, and tranquil Anesthetic Plan: General Autologous Blood: Yes Monitoring Plan: Standard Monitors Recovery Plan: PACU
[2017-01-26] MEDS ORDERED: Ondansetron 4 MG/2 ML VIAL IVP ONE (12:02)
[2017-01-26] MEDS ORDERED: Lidocaine -MPF 2% 5 ML VIAL INFILT ONE (12:02)
[2017-01-26] MEDS ORDERED: *HR* Succinylcholine 200 MG/10 ML VIAL IVP ONE (12:02)
[2017-01-26] MEDS ORDERED: Lidocaine -MPF 4% 5 ML AMPUL TP ONE (12:02)
[2017-01-26] MEDS ORDERED: *HR* Propofol 200 MG/20 ML VIAL IVP ONE (12:02)
[2017-01-26] MEDS ORDERED: *HR* Rocuronium Bromide 50 MG/5 ML VIAL IVC ONE (12:02)
[2017-01-26] MEDS ORDERED: *HR* FentaNYL (PF) 100 MCG/2 ML VIAL ONE ×2 (13:13→13:56)
[2017-01-26] MEDS ORDERED: *HR* Midazolam HCl 2 MG/2 ML VIAL ONE (13:14)
--- NOTE | 2017-01-26 13:26 | Internal Med Progress Note ---
Date of Encounter: 01/26/17 Time of Encounter: 08:40 - Assessment and plan (1) RUQ abdominal pain Current Visit: Yes Status: Acute Assessment and plan: Likely from migration of the biliary stent. Awaiting upper GI endoscopy and stent retrieval today. Continue supportive care and intravenous pain medications. High-risk for complications due to use of intravenous narcotic pain medications. (2) GIB (gastrointestinal bleeding) Current Visit: Yes Status: Acute Assessment and plan: Appears to have subsided. No new episodes of hematemesis or melena. Hemoglobin levels have remained stable. Continue PPI. Follow results of upper GI endoscopy. Qualifiers: GI bleed type/associated pathology: unspecified gastrointestinal hemorrhage type Qualified Code(s): K92.2 - Gastrointestinal hemorrhage, unspecified - Subjective Interval history: Patient could not undergo procedure yesterday and has been rescheduled for this morning. Continues to have some nausea and abdominal pain although this is improving. Her current pain medication regimen is keeping her pain under control. No other acute issues reported overnight. - Constitutional Vitals: Temp Pulse Resp BP Pulse Ox 97.9 F 86 18 126/84 98 01/26/17 11:11 01/26/17 12:50 01/26/17 12:50 01/26/17 12:50 01/26/17 12:50 General appearance: Present: cooperative, mild distress, A&O X 3, answers questions appropriately - Respiratory Respiratory exam: Present: CTAB. Absent: accessory muscle use, rales, rhonchi, wheezes - Cardiovascular Cardiovascular exam: Present: RRR, +S1, +S2. Absent: diastolic murmur, gallop, rubs, systolic murmur - GI/Abdominal GI/Abdominal exam: Present: normal bowel sounds, soft, tenderness (Mild right upper quadrant), no peritoneal signs. Absent: distended - Extremities Exam Extremities exam: Present: warm, radial pulses palpable and symetrical. Absent : calf tenderness, cyanotic, pedal edema - Neurological Exam Neurological exam: Present: alert, oriented X3, no focal deficits. Absent: facial droop, speech deficit - Skin Skin exam: Present: dry, intact Internal Medicine: Result - Labs CBC & Chem 7: 01/26/17 04:04 01/26/17 04:04 Labs: Short CBC 01/26/17 Range/Units 04:04 WBC 8.2 (4.3-11.1) K/mcL Hgb 11.4 L (11.5-15.4) g/dL Hct 33.3 L (35.3-44.9) % Plt Count 207 (140-400) K/mcL Neutrophils # 4.0 (1.6-8.9) K/mcL BMP 01/26/17 04:04 Sodium 135 L Potassium 3.4 L Chloride 105 Carbon Dioxide 24 BUN 5 L Creatinine 0.73 Glucose 78 Calcium 8.4 L Liver Function 01/26/17 Range/Units 04:04 Total Bilirubin 0.5 (0.2-1.2) mg/dL AST 13 (5-34) Units/L ALT 18 (0-55) Units/L Alkaline Phosphatase 64 (38-126) Units/L Albumin 2.9 L (3.5-5.0) g/dL - ABG Interpretation ABG results: PT/INR, D-dimer PT 11.4 Seconds (9.4-12.1) 01/26/17 04:04 Consult Discharge Plan - Plan Referrals: NO,PCP [Primary Care Provider] - - Attending Attestation This document has been at least partially created by [employer] recognition technology by Dr. Cruz. Errors in grammar, wording or other phrases may exist. If errors are found after the documentation is signed, they will be addressed individually in the addendum section of this document when appropriate.
[2017-01-26] MEDS ORDERED: Ringers Solution, Lactated 1,000 ML IVC SCH (13:30)
[2017-01-26] MEDS ORDERED: Indomethacin 50 MG SUPP.RECT RC ONE (14:28)
[2017-01-26] MEDS ORDERED: *HR* Promethazine 25 MG/ML VIAL IVP PRN (14:35)
--- NOTE | 2017-01-26 15:45 | Anesthesia Evaluation Post Op ---
Date of Encounter: 01/26/17 Time of Encounter: 15:44 - Vital Signs Vital Signs: Last Vital Signs Temp 98.6 F 01/26/17 15:28 Pulse 78 01/26/17 15:28 Resp 16 01/26/17 15:28 BP 127/87 01/26/17 15:28 Pulse Ox 98 01/26/17 15:28 - Lungs Lungs: Clear Ascult./Percussion - Airway Airway: Non-obstructed - Cardiovascular Regular Rate - Mental Status Mental Status: Alert & Oriented, Answers Appropriately - Pain Pain Scale: 2 - Nausea Vomiting Nausea Vomiting: Not Present - Hydration Hydration: Tolerates oral liquids - Discharge PostOp Status: Transfer Patient to floor
[2017-01-26] MEDS: Ondansetron 4 MG/2 ML VIAL IVP PRN (16:36)
[2017-01-27] MEDS: D5% in 0.45% NACL 1,000 ML IVC SCH (00:47)
[2017-01-27] MEDS: Piperacillin/Tazobactam 3.375 GM in D5% in Water (Mini-Bag+) 100 ML IVPB SCH ×2 (00:53→08:04)
[2017-01-27] MEDS: *HR* HYDROcodone/Acet 5/325 mg TABLET PO PRN (00:54)
[2017-01-27] MEDS: Ondansetron 4 MG/2 ML VIAL IVP PRN (02:29)
[2017-01-27] MEDS: *HR* HYDROmorphone (PF) 1 MG/ML SYRINGE IVP PRN ×2 (02:29→08:04)
[2017-01-27] MEDS: Pantoprazole 40 MG VIAL IVP SCH (05:37)
[2017-01-27 07:35] VITALS: BP 111/74
[2017-01-27] MEDS ORDERED: *HR* OxyCODONE/APAP 5/325 TABLET PO PRN (07:45)
[2017-01-27 08:09] LABS: Basophils # 0.1 K/mcL (0.0-0.2); Basophils % 0.4 %; Eosinophils % 0.2 %; Hemoglobin 11.5 g/dL (11.5-15.4); Immature Granulocytes % 0.8 % (0-4); Lymphocytes # 1.5 K/mcL (0.6-4.6); Lymphocytes % 12.3 %; Mean Corpuscular HGB Conc 34.8 g/dL (31.6-35.5); Mean Corpuscular Hemoglobin 29.7 pg (28.0-33.3); Mean Corpuscular Volume 85.3 fL (83.0-100.0); Mean Platelet Volume 8.3 fL (9.4-12.4); Monocytes # 0.8 K/mcL (0.0-1.3); Monocytes % 6.8 %; Platelet Count 208 K/mcL (140-400); Red Blood Count 3.87 M/mcL (3.82-4.97); Red Cell Distribution Width 11.6 % (11.5-14.5); Segmented Neutrophils % 79.5 %
[2017-01-27 08:15] LABS: Neutrophils # 9.9 K/mcL (1.6-8.9)
[2017-01-27 08:31] LABS: Alanine Aminotransferase 12 Units/L (0-55); Albumin 2.9 g/dL (3.5-5.0); Albumin/Globulin Ratio 0.9 (1.1-2.2); Alkaline Phosphatase 66 Units/L (38-126); Aspartate Amino Transferase 10 Units/L (5-34); BUN/Creatinine Ratio 6 (6-26); Bilirubin,Total 0.3 mg/dL (0.2-1.2); Calcium 8.8 mg/dL (8.6-10.8); Carbon Dioxide 23 mEq/L (19-29); Chloride 106 mEq/L (98-109); Globulin 3.4 g/dL (2.4-3.5); Glucose 147 mg/dL (70-99); Osmolality,Calculated 282 (280-300); Sodium 136 mEq/L (136-145); Total Protein 6.3 g/dL (6.0-8.3); eGFR For African Americans > 60 (> 60); eGFR For Non-African Americans > 60 (> 60)
[2017-01-27 08:32] LABS: Blood Urea Nitrogen 5 mg/dL (7-20)
--- NOTE | 2017-01-27 10:24 | Discharge Summary ---
Date of Encounter: 01/27/17 Time of Encounter: 08:00 - Discharge Diagnosis (1) RUQ abdominal pain Priority: Primary Status: Acute (2) GIB (gastrointestinal bleeding) Priority: Secondary Status: Acute Qualifiers: GI bleed type/associated pathology: unspecified gastrointestinal hemorrhage type Qualified Code(s): K92.2 - Gastrointestinal hemorrhage, unspecified (3) Choledocholithiasis Priority: Secondary Status: Acute - Discharge Medications Prescriptions: OxyCODONE/APAP 5/325 [Percocet 5/325 MG] 1 each PO Q4HR PRN #14 tablet PRN Reason: Moderate Pain Ciprofloxacin [Cipro] 500 mg PO BID #6 tablet metroNIDAZOLE [Flagyl] 500 mg PO TID #9 tablet Home Medications: Cyclobenzaprine [Flexeril] 10 mg PO 01/24/17 [History] Promethazine [Phenergan] 25 mg PO 01/24/17 [History] Ciprofloxacin [Cipro] 500 mg PO BID #6 tablet 01/27/17 [Rx] OxyCODONE/APAP 5/325 [Percocet 5/325 MG] 1 each PO Q4HR PRN #14 tablet 01/27/17 [Rx] metroNIDAZOLE [Flagyl] 500 mg PO TID #9 tablet 01/27/17 [Rx] Allergies/Adverse Reactions: Allergies No Known Allergies Allergy (Verified 01/23/17 23:40) Date of admission: 01/24/17 05:28 Primary care physician: PCP NO Consults: 01/24/17 02:43 Consult to Gastroenterology [CONS] Stat Consulting Provider: Gastroenterology Heike Reason for Consult: RUQ pain, concern or cholangitis Call Completed: No Discharging clinician: Maria Eugenia Cruz Anticipated date of discharge: 01/27/17 - Patient Status Disposition: Home, Self-Care Condition: Good Functional capacity at discharge: independent ambulation Overall status at discharge: patient is progressing back to baseline - Discharge Instructions Instructions: Ciprofloxacin (By mouth), Oxycodone/Acetaminophen (By mouth), Metronidazole (By mouth), Gastrointestinal Bleeding (DC), Acute Abdominal Pain ( DC) Follow Up With: NO,PCP [Primary Care Provider] - (Follow-up with PCP in one week) Additional Instructions: Follow-up with gastroenterology in 1-2 weeks - Diet and Activity Activity: increase activity as tolerated Diet: advance to your usual diet, low fat, low cholesterol, low salt diet Hospital course: Ms. Partida is a 41 year old female patient who was admitted here with acute right upper quadrant abdominal pain and some lower GI bleed. She was evaluated by gastroenterology and has she had recently had a biliary stent placed that had not been removed at the appropriate time interval. This was believed to be the cause of her pain. She underwent upper GI endoscopy in biliary stent removed fever yesterday. She also had a few stones which were also removed which could be exacerbating her pain. Since then she has been feeling much better and is tolerating diet well. She has not had any further episodes of GI bleeding. However she will have to follow up with GI for possible further evaluation including colonoscopy. At this time, she is clinically stable for discharge home. She will complete a short course of antibiotics as she did have fever and mild leukocytosis on presentation. Her cultures have been negative so far. - Time Spent with Patient Total time spent providing and/or coordinating discharge services: Greater than 30 minutes (35 min) - Constitutional Vitals: Temp Pulse Resp BP Pulse Ox 98.0 F 73 16 111/74 100 01/27/17 07:34 01/27/17 07:34 01/27/17 07:34 01/27/17 07:34 01/27/17 07:34 General appearance: Present: cooperative, A&O X 3, pleasant, no acute distress, obese, answers questions appropriately - Respiratory Respiratory exam: Present: CTAB. Absent: accessory muscle use, rales, rhonchi, wheezes - Cardiovascular Cardiovascular exam: Present: RRR, +S1, +S2. Absent: diastolic murmur, gallop, rubs, systolic murmur - GI/Abdominal GI/Abdominal exam: Present: normal bowel sounds, soft, tenderness (Right upper quadrant), no peritoneal signs. Absent: distended - Attending Attestation This document has been at least partially created by Vers[employer] recognition technology by Dr. Cruz. Errors in grammar, wording or other phrases may exist. If errors are found after the documentation is signed, they will be addressed individually in the addendum section of this document when appropriate.
== END 2017-01-27 12:03 | disposition home or self-care (01) | DRG 850 ==
LOC: 3BNU 23:38 → EMEROO 23:38 → 3BNU 01-24 03:34 → SUATTDRO 01-24 05:28
PROVIDERS: ADMIT Internal Medicine; ATTEND Internal Medicine

== ENCOUNTER 2017-07-09 21:27 | Inpatient (IN) ==
--- NOTE | 2017-07-09 21:47 | Emergency Department Note ---
Disposition Clinical Impression: Shortness of breath, Tachycardia, Community acquired pneumonia Disposition: Admitted As Inpatient Condition: Good General Adult HPI - General Chief complaint: ED Shortness of Breath/Dyspnea Stated complaint: chest pain, tristin Time Seen by Provider: 07/09/17 21:43 Source: patient Limitations: no limitations - History of Present Illness Pain Scale: 10 - Related Data Home Medications Medication Instructions Recorded Confirmed Buprenorphine HCl/Naloxone HCl 2 each SL DAILY 07/10/17 07/10/17 [Suboxone 8 mg-2 mg Sl Film] Gabapentin [Neurontin] 300 - 600 mg PO HS PRN 07/10/17 07/10/17 Allergies Allergy/AdvReac Type Severity Reaction Status Date / Time No Known Allergies Allergy Verified 01/23/17 23:40 Past Medical History - Past Medical History Medical history: Reports: no medical history Surgical history: Reports: cholecystectomy, hysterectomy 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 history: Reports: 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 - Social History Smoking Status: Never smoker Smokeless Tobacco Status: No Alcohol use: Reports: none Drug use: Reports: none Physical Exam - General Limitations: no limitations General appearance: alert, in no apparent distress Course Vital Signs Temperature 89 F L 07/09/17 21:34 Pulse Rate 131 07/09/17 21:34 Respiratory Rate 22 07/09/17 21:34 Blood Pressure 97/67 07/09/17 21:34 O2 Sat by Pulse Oximetry 95 07/09/17 21:34 Temperature 98.0 F 07/10/17 10:45 Pulse Rate 87 07/10/17 10:45 Respiratory Rate 16 07/10/17 10:45 Blood Pressure 86/51 07/10/17 10:45 O2 Sat by Pulse Oximetry 97 07/10/17 10:45 Oxygen Delivery Oxygen Delivery Room Air Medical Decision Making - Lab Data Result diagrams: 07/10/17 05:02 07/10/17 05:02 Lab Results 07/09/17 07/09/17 07/09/17 Range/Units 22:00 22:00 22:00 WBC 18.9 H (4.3-11.1) K/mcL RBC 4.49 (3.82-4.97) M/mcL Hgb 13.5 (11.5-15.4) g/dL Hct 38.8 (35.3-44.9) % MCV 86.4 (83.0-100.0) fL MCH 30.1 (28.0-33.3) pg MCHC 34.8 (31.6-35.5) g/dL RDW 11.9 (11.5-14.5) % Plt Count 204 (140-400) K/mcL MPV 8.0 L (9.4-12.4) fL Seg Neutrophils % 68.0 % Band Neutrophils % 24.0 H (0-4) % Lymphocytes % 6.0 % Monocytes % 2.0 % Neutrophils # 17.4 H (1.6-8.9) K/mcL Lymphocytes # 1.1 (0.6-4.6) K/mcL Monocytes # 0.4 (0.0-1.3) K/mcL Toxic Granulation Present A (Not Present) Platelet Estimate Normal (Normal) D-Dimer 4959 H (0-500) ng/mLFEU Sodium 133 L (136-145) mEq/L Potassium 3.7 (3.5-4.5) mEq/L Chloride 101 (98-109) mEq/L Carbon Dioxide 23 (19-29) mEq/L BUN 9 (7-20) mg/dL Creatinine 0.82 (0.57-1.11) mg/dL Est GFR ( Amer) > 60 (> 60) Est GFR (Non-Af Amer) > 60 (> 60) BUN/Creatinine Ratio 11 (6-26) Glucose 125 H (70-99) mg/dL Calculated Osmolality 276 L (280-300) Lactic Acid (0.5-2.2) mmol/L Calcium 8.8 (8.6-10.8) mg/dL Total Bilirubin 1.1 (0.2-1.2) mg/dL AST 14 (5-34) Units/L ALT 12 (0-55) Units/L Alkaline Phosphatase 53 (38-126) Units/L Troponin I (0-0.03) ng/mL Serum Total Protein 6.9 (6.0-8.3) g/dL Albumin 3.1 L (3.5-5.0) g/dL Globulin 3.8 H (2.4-3.5) g/dL Albumin/Globulin Ratio 0.8 L (1.1-2.2) 07/09/17 07/10/17 Range/Units 22:00 00:31 WBC (4.3-11.1) K/mcL RBC (3.82-4.97) M/mcL Hgb (11.5-15.4) g/dL Hct (35.3-44.9) % MCV (83.0-100.0) fL MCH (28.0-33.3) pg MCHC (31.6-35.5) g/dL RDW (11.5-14.5) % Plt Count (140-400) K/mcL MPV (9.4-12.4) fL Seg Neutrophils % % Band Neutrophils % (0-4) % Lymphocytes % % Monocytes % % Neutrophils # (1.6-8.9) K/mcL Lymphocytes # (0.6-4.6) K/mcL Monocytes # (0.0-1.3) K/mcL Toxic Granulation (Not Present) Platelet Estimate (Normal) D-Dimer (0-500) ng/mLFEU Sodium (136-145) mEq/L Potassium (3.5-4.5) mEq/L Chloride (98-109) mEq/L Carbon Dioxide (19-29) mEq/L BUN (7-20) mg/dL Creatinine (0.57-1.11) mg/dL Est GFR ( Amer) (> 60) Est GFR (Non-Af Amer) (> 60) BUN/Creatinine Ratio (6-26) Glucose (70-99) mg/dL Calculated Osmolality (280-300) Lactic Acid 3.5 H (0.5-2.2) mmol/L Calcium (8.6-10.8) mg/dL Total Bilirubin (0.2-1.2) mg/dL AST (5-34) Units/L ALT (0-55) Units/L Alkaline Phosphatase (38-126) Units/L Troponin I 0.00 (0-0.03) ng/mL Serum Total Protein (6.0-8.3) g/dL Albumin (3.5-5.0) g/dL Globulin (2.4-3.5) g/dL Albumin/Globulin Ratio (1.1-2.2) Attestation Statement - Attestation Attestation: I examined this patient and my medical decision-making was reviewed with the Resident Physician. I agree with the documented findings, disposition and treatment plan as described except to the extent set forth below. [id number] time provided Patient presents with chest pain hurts worse when she takes a deep inspiration. Pain at right anterior lower costal margin and anterior chest. No cough. She feels dyspneic. She is hypoxic and tachycardic on exam 22:26: Care to be endorsed to Dr. Urena at 11 PM pending CTA chest.
[2017-07-09] MEDS ORDERED: *HR* Morphine 2 MG/ML SYRINGE IVP ONE (21:49)
[2017-07-09] MEDS ORDERED: Ketorolac 15 MG/ML VIAL IVP ONE (21:49)
[2017-07-09 22:07] LABS: Hematocrit 38.8 % (35.3-44.9); Hemoglobin 13.5 g/dL (11.5-15.4); Mean Corpuscular HGB Conc 34.8 g/dL (31.6-35.5); Mean Corpuscular Hemoglobin 30.1 pg (28.0-33.3); Mean Corpuscular Volume 86.4 fL (83.0-100.0); Platelet Count 204 K/mcL (140-400); Red Blood Count 4.49 M/mcL (3.82-4.97); Red Cell Distribution Width 11.9 % (11.5-14.5)
[2017-07-09 22:21] LABS: Alanine Aminotransferase 12 Units/L (0-55); Albumin 3.1 g/dL (3.5-5.0); Albumin/Globulin Ratio 0.8 (1.1-2.2); Alkaline Phosphatase 53 Units/L (38-126); Aspartate Amino Transferase 14 Units/L (5-34); BUN/Creatinine Ratio 11 (6-26); Bilirubin,Total 1.1 mg/dL (0.2-1.2); Blood Urea Nitrogen 9 mg/dL (7-20); Calcium 8.8 mg/dL (8.6-10.8); Carbon Dioxide 23 mEq/L (19-29); Chloride 101 mEq/L (98-109); Globulin 3.8 g/dL (2.4-3.5); Glucose 125 mg/dL (70-99); Osmolality,Calculated 276 (280-300); Potassium 3.7 mEq/L (3.5-4.5); Sodium 133 mEq/L (136-145); Total Protein 6.9 g/dL (6.0-8.3); eGFR For African Americans > 60 (> 60); eGFR For Non-African Americans > 60 (> 60)
[2017-07-09 22:26] LABS: Lymphocytes # 1.1 K/mcL (0.6-4.6); Monocytes # 0.4 K/mcL (0.0-1.3); Neutrophils # 17.4 K/mcL (1.6-8.9); Platelet Estimate Normal (Normal); Toxic Granulation Present (Not Present)
--- NOTE | 2017-07-09 22:26 | Emergency Department Note ---
Disposition Clinical Impression: Shortness of breath, Tachycardia Disposition: Still a Patient Condition: Good Referrals: NONE,PCP [Primary Care Provider] - Forms: ED Satisfaction Letter Time of Disposition: 22:29 General Adult HPI - General Chief complaint: ED Shortness of Breath/Dyspnea Stated complaint: chest pain, tristin Time Seen by Provider: 07/09/17 21:43 Source: patient Limitations: no limitations Nursing Notes Reviewed: Yes Vital Signs Reviewed: Yes - History of Present Illness HPI Narrative: 41-year-old female presenting to the emergency Department chief complaint of shortness of breath. Patient states around 11:00 this afternoon she started having severe shortness of breath, nausea and pleuritic chest pain. She denies chest pain at this time. She states this has never happened before. She also discloses a fever of 104 at home. Denies any recent sick contacts. Denies any neck pain dizziness or headache. Patient denies any hormonal therapies, long trips, recent surgeries or family members of blood clots. Patient denies being on anticoagulation at this time. Patient states she tried Tylenol home minimal relief. She states pain gets worse when she takes a deep breath. It is located on the right side of her chest. It does not radiate. Patient denies any unilateral leg swelling. She states sometimes she has bilateral leg swelling and she has been on her feet for long period of time but when she raises them overnight they get better. Pain Scale: 10 - Related Data Home Medications Medication Instructions Recorded Confirmed Cyclobenzaprine [Flexeril] 10 mg PO 01/24/17 Promethazine [Phenergan] 25 mg PO 01/24/17 Ibuprofen 03/13/17 Previous Rx's Medication Instructions Recorded HYDROcodone/Acet 5/325 mg [[place] 1 tab PO Q8HR PRN #12 tab 03/13/17 5-325 mg] Dicyclomine [Bentyl] 10 mg PO QID #28 capsule 05/14/17 Ondansetron HCl [Zofran] 4 mg PO TID #21 tablet 05/14/17 Naproxen [Naprosyn] 500 mg PO BID #10 tablet 06/22/17 Ondansetron ODT [Zofran ODT] 4 mg SL Q8HR PRN #12 tab.rapdis 06/22/17 Allergies Allergy/AdvReac Type Severity Reaction Status Date / Time No Known Allergies Allergy Verified 01/23/17 23:40 All systems ED: reviewed and negative except as stated. Constitutional: Reports: fever. Denies: chills, weakness Eyes: Reports: as per HPI ENT ED: Reports: as per HPI Cardiovascular: Reports: chest pain (pleuritic). Denies: palpitations Respiratory: Reports: dyspnea. Denies: cough, wheezes, hemoptysis Gastrointestinal: Reports: as per HPI Genitourinary: Reports: as per HPI Musculoskeletal: Reports: as per HPI Integumentary: Denies: rash, abrasion, lesions Neurological: Denies: weakness, numbness, paresthesias Psychiatric: Reports: as per HPI Endocrine: Reports: as per HPI Hematological/Lymphatic: Reports: as per HPI Allergic/Immunologic: Reports: as per HPI Past Medical History - Past Medical History Attestation: Yes The following information was validated with the patient. 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 Absent: scleral icterus, conjunctival injection - Neck Neck exam: Present: normal inspection, trachea midline. Absent: tenderness, meningismus - Chest Chest inspection: Present: normal inspection, symmetric chest wall rise. Absent : tenderness, rash - Respiratory Respiratory exam: Present: normal lung sounds bilaterally. Absent: respiratory distress, wheezes - Cardiovascular Cardiovascular exam: Present: normal rhythm, tachycardia, normal heart sounds - Abdominal Exam Abdominal exam: Present: soft, Non-Tender. Absent: distention, guarding, rebound - Extremities Exam Extremities exam: Present: normal inspection, full ROM - Neurological Exam Neurological exam: Present: alert, oriented X3 - Psychiatric Psychiatric exam: Present: normal affect, normal mood - Skin Skin exam: Present: warm, intact Course Course Narrative: 41-year-old female presenting to the emergency department with chief complaint of shortness of breath and pleuritic chest pain. Patient is to, tachycardic and mildly hypoxic in the room at 94%. Concern for PE at this time. We will obtain basic lab work and complete a CT of the chest. Patient is stable at this time. She is alert and oriented 3 in the room. Family member at bedside. Patient agrees with this plan. - Reevaluation(s) Reevaluation #1: Patient will be signed out to my fellow resident Dr. Grover pending CTA results. Time: 22:30 Vital Signs Temperature 89 F L 07/09/17 21:34 Pulse Rate 131 07/09/17 21:34 Respiratory Rate 22 07/09/17 21:34 Blood Pressure 97/67 07/09/17 21:34 O2 Sat by Pulse Oximetry 95 07/09/17 21:34 Temperature 89 F L 07/09/17 21:34 Pulse Rate 111 07/09/17 22:06 Respiratory Rate 24 07/09/17 22:06 Blood Pressure 113/74 07/09/17 22:06 O2 Sat by Pulse Oximetry 93 07/09/17 22:06 Oxygen Delivery Oxygen Delivery Room Air Medical Decision Making - Lab Data Result diagrams: 07/09/17 22:00 07/09/17 22:00 Lab Results 07/09/17 07/09/17 07/09/17 Range/Units 22:00 22:00 22:00 WBC 18.9 H (4.3-11.1) K/mcL RBC 4.49 (3.82-4.97) M/mcL Hgb 13.5 (11.5-15.4) g/dL Hct 38.8 (35.3-44.9) % MCV 86.4 (83.0-100.0) fL MCH 30.1 (28.0-33.3) pg MCHC 34.8 (31.6-35.5) g/dL RDW 11.9 (11.5-14.5) % Plt Count 204 (140-400) K/mcL MPV 8.0 L (9.4-12.4) fL Seg Neutrophils % 68.0 % Band Neutrophils % 24.0 H (0-4) % Lymphocytes % 6.0 % Monocytes % 2.0 % Neutrophils # 17.4 H (1.6-8.9) K/mcL Lymphocytes # 1.1 (0.6-4.6) K/mcL Monocytes # 0.4 (0.0-1.3) K/mcL Toxic Granulation Present A (Not Present) Platelet Estimate Normal (Normal) D-Dimer 4959 H (0-500) ng/mLFEU Sodium 133 L (136-145) mEq/L Potassium 3.7 (3.5-4.5) mEq/L Chloride 101 (98-109) mEq/L Carbon Dioxide 23 (19-29) mEq/L BUN 9 (7-20) mg/dL Creatinine 0.82 (0.57-1.11) mg/dL Est GFR ( Amer) > 60 (> 60) Est GFR (Non-Af Amer) > 60 (> 60) BUN/Creatinine Ratio 11 (6-26) Glucose 125 H (70-99) mg/dL Calculated Osmolality 276 L (280-300) Calcium 8.8 (8.6-10.8) mg/dL Total Bilirubin 1.1 (0.2-1.2) mg/dL AST 14 (5-34) Units/L ALT 12 (0-55) Units/L Alkaline Phosphatase 53 (38-126) Units/L Troponin I (0-0.03) ng/mL Serum Total Protein 6.9 (6.0-8.3) g/dL Albumin 3.1 L (3.5-5.0) g/dL Globulin 3.8 H (2.4-3.5) g/dL Albumin/Globulin Ratio 0.8 L (1.1-2.2) 07/09/17 Range/Units 22:00 WBC (4.3-11.1) K/mcL RBC (3.82-4.97) M/mcL Hgb (11.5-15.4) g/dL Hct (35.3-44.9) % MCV (83.0-100.0) fL MCH (28.0-33.3) pg MCHC (31.6-35.5) g/dL RDW (11.5-14.5) % Plt Count (140-400) K/mcL MPV (9.4-12.4) fL Seg Neutrophils % % Band Neutrophils % (0-4) % Lymphocytes % % Monocytes % % Neutrophils # (1.6-8.9) K/mcL Lymphocytes # (0.6-4.6) K/mcL Monocytes # (0.0-1.3) K/mcL Toxic Granulation (Not Present) Platelet Estimate (Normal) D-Dimer (0-500) ng/mLFEU Sodium (136-145) mEq/L Potassium (3.5-4.5) mEq/L Chloride (98-109) mEq/L Carbon Dioxide (19-29) mEq/L BUN (7-20) mg/dL Creatinine (0.57-1.11) mg/dL Est GFR ( Amer) (> 60) Est GFR (Non-Af Amer) (> 60) BUN/Creatinine Ratio (6-26) Glucose (70-99) mg/dL Calculated Osmolality (280-300) Calcium (8.6-10.8) mg/dL Total Bilirubin (0.2-1.2) mg/dL AST (5-34) Units/L ALT (0-55) Units/L Alkaline Phosphatase (38-126) Units/L Troponin I 0.00 (0-0.03) ng/mL Serum Total Protein (6.0-8.3) g/dL Albumin (3.5-5.0) g/dL Globulin (2.4-3.5) g/dL Albumin/Globulin Ratio (1.1-2.2)
[2017-07-09] MEDS ORDERED: Ondansetron 4 MG/2 ML VIAL IVP ONE (22:33)
[2017-07-09] MEDS ORDERED: 0.9 % Sodium Chloride 1,000 ML IVC ONE ×3 (22:33→23:46)
--- NOTE | 2017-07-09 22:43 | Emergency Department Note ---
Disposition Clinical Impression: Shortness of breath, Tachycardia Community acquired pneumonia Qualifiers: Laterality: unspecified laterality Qualified Code(s): J18.9 - Pneumonia, unspecified organism Disposition: Admitted As Inpatient Condition: Good Referrals: NONE,PCP [Primary Care Provider] - Forms: ED Satisfaction Letter Time of Disposition: 00:19 General Adult HPI - General Chief complaint: ED Shortness of Breath/Dyspnea Stated complaint: chest pain, tristin Time Seen by Provider: 07/09/17 21:43 Source: patient Limitations: no limitations - History of Present Illness Pain Scale: 10 - Related Data Home Medications Medication Instructions Recorded Confirmed Cyclobenzaprine [Flexeril] 10 mg PO 01/24/17 Promethazine [Phenergan] 25 mg PO 01/24/17 Ibuprofen 03/13/17 Previous Rx's Medication Instructions Recorded HYDROcodone/Acet 5/325 mg [[place] 1 tab PO Q8HR PRN #12 tab 03/13/17 5-325 mg] Dicyclomine [Bentyl] 10 mg PO QID #28 capsule 05/14/17 Ondansetron HCl [Zofran] 4 mg PO TID #21 tablet 05/14/17 Naproxen [Naprosyn] 500 mg PO BID #10 tablet 06/22/17 Ondansetron ODT [Zofran ODT] 4 mg SL Q8HR PRN #12 tab.rapdis 06/22/17 Allergies Allergy/AdvReac Type Severity Reaction Status Date / Time No Known Allergies Allergy Verified 01/23/17 23:40 Constitutional: Reports: fever. Denies: chills, weakness Eyes: Reports: as per HPI ENT ED: Reports: as per HPI Cardiovascular: Reports: chest pain (pleuritic). Denies: palpitations Respiratory: Reports: dyspnea. Denies: cough, wheezes, hemoptysis Gastrointestinal: Reports: as per HPI Genitourinary: Reports: as per HPI Musculoskeletal: Reports: as per HPI Integumentary: Denies: rash, abrasion, lesions Neurological: Denies: weakness, numbness, paresthesias Psychiatric: Reports: as per HPI Endocrine: Reports: as per HPI Hematological/Lymphatic: Reports: as per HPI Allergic/Immunologic: Reports: as per HPI Past Medical History - Past Medical History Medical history: Reports: no medical history Surgical history: Reports: cholecystectomy, hysterectomy Psychiatric history: Reports: no psych history [employer] history: Reports: non-contributory - Social History Smoking Status: Never smoker Smokeless Tobacco Status: No Alcohol use: Reports: none Drug use: Reports: none Physical Exam - General Limitations: no limitations General appearance: alert, in no apparent distress Course Course Narrative: Patient taken over at the end of Dr. Sin's shift. 41-year-old female presents with tachycardia. Patient has had cough productive sputum for the last several days. Chest x-ray is concerning for pneumonia. EKG does show a pathology that is concerning for pulmonary emboli. Her d-dimer is significantly elevated. Fluids and pain medication nausea medication be given. Patient will have CT angiography of the chest. Disposition to be determined once workup is completed. Patient is otherwise unremarkable this point. Lungs are diminished on the right side in comparison to the left side. Emphysematous at the pitting edema. She is tachycardic with no cardiac pathology or history. We will continue to monitor here until the disposition is completed. - Reevaluation(s) Reevaluation #1: Patient found to have bilateral pneumonia. IV antibiotics started this time. Patient has been persistently hypoxic tachycardia is responsive to fluid hydration. 3 L of fluid during this time secondary to the tachycardia in presentation. Patient will be admitted for symptom control and make sure that her oxygenation was stabilized. Patient is otherwise comfortable with this plan. Hospitals paged at this time for definitive evaluation and treatment. Time: 00:18 Reevaluation #2: Patient discussed with the on-call hospitalist Dr. West. Degenerative presentation symptoms intervention were discussed. No other concerns or issues noted. Patient will be admitted for definitive evaluation. Time: 00:32 Vital Signs Temperature 89 F L 07/09/17 21:34 Pulse Rate 131 07/09/17 21:34 Respiratory Rate 22 07/09/17 21:34 Blood Pressure 97/67 07/09/17 21:34 O2 Sat by Pulse Oximetry 95 07/09/17 21:34 Temperature 89 F L 07/09/17 21:34 Pulse Rate 103 07/09/17 23:51 Respiratory Rate 22 07/09/17 23:51 Blood Pressure 99/82 07/09/17 23:51 O2 Sat by Pulse Oximetry 93 07/09/17 23:51 Oxygen Delivery Oxygen Delivery Room Air Medical Decision Making - MDM Narrative Medical decision making narrative: Shortness of breath, fever, tachycardia, productive sputum - Medical Records Medical records reviewed: Yes I reviewed the patient's medical records. - Lab Data Lab results reviewed: Yes I reviewed the patient's lab results. Result diagrams: 07/09/17 22:00 07/09/17 22:00 Lab Results 07/09/17 07/09/17 07/09/17 Range/Units 22:00 22:00 22:00 WBC 18.9 H (4.3-11.1) K/mcL RBC 4.49 (3.82-4.97) M/mcL Hgb 13.5 (11.5-15.4) g/dL Hct 38.8 (35.3-44.9) % MCV 86.4 (83.0-100.0) fL MCH 30.1 (28.0-33.3) pg MCHC 34.8 (31.6-35.5) g/dL RDW 11.9 (11.5-14.5) % Plt Count 204 (140-400) K/mcL MPV 8.0 L (9.4-12.4) fL Seg Neutrophils % 68.0 % Band Neutrophils % 24.0 H (0-4) % Lymphocytes % 6.0 % Monocytes % 2.0 % Neutrophils # 17.4 H (1.6-8.9) K/mcL Lymphocytes # 1.1 (0.6-4.6) K/mcL Monocytes # 0.4 (0.0-1.3) K/mcL Toxic Granulation Present A (Not Present) Platelet Estimate Normal (Normal) D-Dimer 4959 H (0-500) ng/mLFEU Sodium 133 L (136-145) mEq/L Potassium 3.7 (3.5-4.5) mEq/L Chloride 101 (98-109) mEq/L Carbon Dioxide 23 (19-29) mEq/L BUN 9 (7-20) mg/dL Creatinine 0.82 (0.57-1.11) mg/dL Est GFR ( Amer) > 60 (> 60) Est GFR (Non-Af Amer) > 60 (> 60) BUN/Creatinine Ratio 11 (6-26) Glucose 125 H (70-99) mg/dL Calculated Osmolality 276 L (280-300) Calcium 8.8 (8.6-10.8) mg/dL Total Bilirubin 1.1 (0.2-1.2) mg/dL AST 14 (5-34) Units/L ALT 12 (0-55) Units/L Alkaline Phosphatase 53 (38-126) Units/L Troponin I (0-0.03) ng/mL Serum Total Protein 6.9 (6.0-8.3) g/dL Albumin 3.1 L (3.5-5.0) g/dL Globulin 3.8 H (2.4-3.5) g/dL Albumin/Globulin Ratio 0.8 L (1.1-2.2) 07/09/17 Range/Units 22:00 WBC (4.3-11.1) K/mcL RBC (3.82-4.97) M/mcL Hgb (11.5-15.4) g/dL Hct (35.3-44.9) % MCV (83.0-100.0) fL MCH (28.0-33.3) pg MCHC (31.6-35.5) g/dL RDW (11.5-14.5) % Plt Count (140-400) K/mcL MPV (9.4-12.4) fL Seg Neutrophils % % Band Neutrophils % (0-4) % Lymphocytes % % Monocytes % % Neutrophils # (1.6-8.9) K/mcL Lymphocytes # (0.6-4.6) K/mcL Monocytes # (0.0-1.3) K/mcL Toxic Granulation (Not Present) Platelet Estimate (Normal) D-Dimer (0-500) ng/mLFEU Sodium (136-145) mEq/L Potassium (3.5-4.5) mEq/L Chloride (98-109) mEq/L Carbon Dioxide (19-29) mEq/L BUN (7-20) mg/dL Creatinine (0.57-1.11) mg/dL Est GFR ( Amer) (> 60) Est GFR (Non-Af Amer) (> 60) BUN/Creatinine Ratio (6-26) Glucose (70-99) mg/dL Calculated Osmolality (280-300) Calcium (8.6-10.8) mg/dL Total Bilirubin (0.2-1.2) mg/dL AST (5-34) Units/L ALT (0-55) Units/L Alkaline Phosphatase (38-126) Units/L Troponin I 0.00 (0-0.03) ng/mL Serum Total Protein (6.0-8.3) g/dL Albumin (3.5-5.0) g/dL Globulin (2.4-3.5) g/dL Albumin/Globulin Ratio (1.1-2.2) - Radiology Data Radiology results reviewed: Yes I reviewed the patient's radiology results. - EKG Data EKG #1 EKG attestation: Yes I reviewed and interpreted this EKG. EKG results narrative: Patient is concerning pulmonary findings on EKG. Otherwise sinus tachycardia is noted.
[2017-07-09] MEDS ORDERED: Levofloxacin 750 MG/150 ML 750 MG/150 ML BAG IVPB ONE (23:35)
[2017-07-10] MEDS ORDERED: *HR* Morphine 2 MG/ML SYRINGE IVP ONE (00:26)
[2017-07-10] MEDS ORDERED: Ondansetron 4 MG/2 ML VIAL IVP PRN (03:34)
[2017-07-10] MEDS ORDERED: Naloxone 0.4 MG/ML INJ IVP PRN (03:34)
[2017-07-10] MEDS ORDERED: Albuterol 2.5 MG/3 ML NEBULIZER IH PRN (03:45)
[2017-07-10] MEDS ORDERED: Vancomycin (wt based) 1,000 MG VIAL IVPB SCH (04:00)
--- NOTE | 2017-07-10 04:01 | Internal Med History&Physical ---
Date of Encounter: 07/10/17 Time of Encounter: 03:15 Assessment and Plan (1) Sepsis Current visit: Yes Status: Acute 1. Patient received fluid boluses in ER. 2. I will increase IVF fluid rate. 3. Follow blood cultures and try to obtain sputum culture. 4. Suspect pneumonia etiology. 5. Monitor on telemetry. 6. Will trend lactic acid levels and follow clinically Qualifiers: Sepsis type: sepsis due to unspecified organism Qualified Code(s): A41.9 - Sepsis, unspecified organism (2) Community acquired pneumonia Current visit: Yes Status: Acute 1. Given the clinical picture of sepsis and the severity of her pneumonia, I will start her on Vancomycin in addition to Rocephin and Zithromax. 2. Will provide Duoneb and albuterol aerosols as needed. 3. Oxygen for support. 4. Will try to obtain sputum culture and gram stain. Qualifiers: Laterality: unspecified laterality Qualified Code(s): J18.9 - Pneumonia, unspecified organism (3) DVT prophylaxis Current visit: No Status: Acute 1. Heparin SQ. Internal Medicine - H&P: HPI Chief complaint: fevers; cough; chest pain Admitted From: Emergency Dept Plans for Post Hospital Care: Home History of present illness: Ms. Partida is a 41 year old female who presents with a 24 hour history of fevers (103 F), pleuritic chest pain, cough, chills, and night sweats. Symptoms started abruptly and woke her from sleep last night. Because of persistence of symptoms, she came to ER where she was diagnosed with multi-focal pneumonia on CTA chest. Upon my assessment of the patient, she feels a little better, but she remains ill-appearing. She denies any ill contacts or recent hospitalizations. She received fluid boluses in ER and IV antibiotics. Patient states fevers started abruptly as she awoke from sleep. She also admits to shakes and chills the last 24 hours. She denies any vomiting or diarrhea. She has not traveled out of [place] lately and has not been exposed to large groups of people. Past Med Surg Social Fam HX - Past Medical History Attestation: Yes The following information was validated with the patient. Source: patient, old records reviewed Medical history: no medical history Psychiatric history: no psych history - Past Surgical History Surgical History: cholecystectomy, hysterectomy - Social History Smoking Status: Never smoker Smokeless Tobacco Status: No Alcohol use: none Drug use: none Current living situation: Home, With Family Activity Level: Independent ambulation Recent Out of Country Travel Within the Last 8 Weeks: No - Family History Father Hx Family Cardiac Disorders: Yes (HTN, CVA) Hx Family Respiratory Disorders: Yes (COPD) Hx Family Cancer: No Hx Family GI Disorders: Yes (GERD) Hx Family Endocrine Disorder: No Hx Family Neuromuscular Disorders: No Hx Family Neurologic Disorders: No Hx Family HEENT Disorders: No Hx Family Autoimmune Disorders: No Mother Hx Family Cardiac Disorders: No Hx Family Respiratory Disorders: No Hx Family Cancer: Yes (Lung, colon, breast, bone) Hx Family GI Disorders: Yes (GERD) Hx Family Endocrine Disorder: No Hx Family Neuromuscular Disorders: No Hx Family Neurologic Disorders: No Hx Family HEENT Disorders: No Hx Family Autoimmune Disorders: No Internal Medicine - H&P: Meds Cyclobenzaprine [Flexeril] 10 mg PO HS 01/24/17 [History] 3 Allergy/AdvReac Type Severity Reaction Status Date / Time No Known Allergies Allergy Verified 01/23/17 23:40 - Constitutional Constitutional: chills, fever(s), malaise, no night sweats - EENT Eyes: no blurry vision, no change in vision Ears: no ear pain, no tinnitus Nose, mouth and throat: no nasal congestion, no nasal discharge, no sinus pressure, no sore throat - Cardiovascular Cardiovascular ROS IM: chest pain, diaphoresis, dyspnea, no lightheadedness, no palpitations, no paroxysmal nocturnal dyspnea - Respiratory Respiratory: cough, wheezing, chest congestion, excessive phlegm production, change in phlegm color, pain with cough, no hemoptysis - Gastrointestinal Gastrointestinal: no abdominal pain, no diarrhea, no hematemesis, no hematochezia, no melena, no nausea, no vomiting - Genitourinary Genitourinary: no dysuria, no flank pain, no hematuria - Musculoskeletal Musculoskeletal ROS IM: back pain, no arthralgias - Integumentary Integumentary IM: no rash, no jaundice - Neurological Neurological ROS: no dizziness, no focal weakness, no frequent falls, no headache(s) - Psychiatric Psychiatric: no anxiety, no depression - Endocrine Endocrine IM: no polydipsia, no polyuria - Allergic/Immunologic Allergic/Immunologic: wheezing, no GI upset with certain foods - Constitutional Vitals: Temp Pulse Resp BP Pulse Ox 99.2 F 108 16 107/75 99 07/10/17 03:41 07/10/17 03:41 07/10/17 03:41 07/10/17 03:41 07/10/17 01:28 EDT General appearance: Present: cooperative, A&O X 3, pleasant Exam: ill-appearing; non-toxic - Head Head exam: Present: atraumatic, normal inspection - Eye Eye exam: Present: EOMI, normal appearance, PERRL. Absent: scleral icterus Pupils: Present: normal accommodation - ENT ENT exam: Present: mucous membranes dry, normal exam, normal external ear exam - Neck Neck exam general surgery: Present: full ROM, supple, trachea midline. Absent: lymphadenopathy, tenderness, nuchal rigidity - Expanded Neck Exam Neck exam: Absent: carotid bruit - Respiratory Respiratory exam: Present: accessory muscle use, decreased breath sounds, prolonged expiratory phase, rales (subtle right basilar crackles), rhonchi. Absent: chest wall tenderness, wheezes - Cardiovascular Cardiovascular exam: Present: RRR, +S1, +S2. Absent: diastolic murmur, JVD, systolic murmur - GI/Abdominal GI/Abdominal exam: Present: normal bowel sounds, soft. Absent: hepatomegaly, mass, rebound, splenomegaly, tenderness - Extremities Exam Extremities exam: Present: full ROM, normal capillary refill (cap refill ~ 2 seconds), warm, radial pulses palpable and symmetrical. Absent: calf tenderness , joint swelling, mottling, pedal edema - Back Exam Back exam: Absent: CVA tenderness (L), CVA tenderness (R) - Neurological Exam Neurological exam: Present: alert, oriented X3, no focal deficits - Psychiatric Psychiatric exam: Present: normal affect, normal mood - Skin Skin exam: Present: dry, warm. Absent: rash Internal Med - H&P Results - Labs CBC & Chem 7: 07/09/17 22:00 07/09/17 22:00 - EKG Data -: EKG Interpreted by Myself - EKG Data EKG comments: 07/10/17 04:29 Sinus tachycardia - Diagnostic Studies CT scan - chest Status: image reviewed by me (multi-focal pneumonia)
[2017-07-10] MEDS: Ipratropium/Albuterol Neb 3 ML IH SCH ×4 (04:31→21:54)
[2017-07-10] MEDS: *HR* Morphine 2 MG/ML SYRINGE IVP PRN ×3 (04:52→15:30)
[2017-07-10] MEDS: cefTRIAXone 2,000 MG in Water for inj. (sterile) 20 ML IVP SCH (04:56)
[2017-07-10] MEDS: Azithromycin 500 MG in D5% in Water 250 ML IVPB SCH (05:03)
[2017-07-10] MEDS: *HR* Heparin 5,000 UNIT/ML VIAL SQ SCH ×3 (05:09→21:34)
[2017-07-10 05:14] LABS: Basophils % 0.2 %; Eosinophils # 0.1 K/mcL (0.0-0.6); Eosinophils % 0.3 %; Hematocrit 33.7 % (35.3-44.9); Immature Granulocytes % 0.7 % (0-4); Lymphocytes % 9.5 %; Mean Corpuscular HGB Conc 34.4 g/dL (31.6-35.5); Mean Corpuscular Hemoglobin 29.8 pg (28.0-33.3); Mean Corpuscular Volume 86.6 fL (83.0-100.0); Mean Platelet Volume 8.1 fL (9.4-12.4); Monocytes % 4.9 %; Neutrophils # 17.4 K/mcL (1.6-8.9); Platelet Count 196 K/mcL (140-400); Red Blood Count 3.89 M/mcL (3.82-4.97); Segmented Neutrophils % 84.4 %
[2017-07-10 05:18] LABS: Hemoglobin 11.6 g/dL (11.5-15.4)
[2017-07-10 05:27] LABS: Alanine Aminotransferase 10 Units/L (0-55); Albumin 2.6 g/dL (3.5-5.0); Albumin/Globulin Ratio 0.8 (1.1-2.2); Alkaline Phosphatase 44 Units/L (38-126); Aspartate Amino Transferase 12 Units/L (5-34); BUN/Creatinine Ratio 14 (6-26); Bilirubin,Total 0.8 mg/dL (0.2-1.2); Blood Urea Nitrogen 10 mg/dL (7-20); Carbon Dioxide 25 mEq/L (19-29); Chloride 104 mEq/L (98-109); Globulin 3.2 g/dL (2.4-3.5); Glucose 109 mg/dL (70-99); Magnesium 1.3 mg/dL (1.6-2.6); Osmolality,Calculated 280 (280-300); Potassium 3.6 mEq/L (3.5-4.5); Sodium 135 mEq/L (136-145); Total Protein 5.8 g/dL (6.0-8.3); eGFR For African Americans > 60 (> 60); eGFR For Non-African Americans > 60 (> 60)
[2017-07-10] MEDS: 0.9 % Sodium Chloride w KCl 20 MEQ/1,000 ML MLS IVC SCH ×2 (06:19→15:31)
[2017-07-10] MEDS: Vancomycin 1,500 MG in D5% in Water 250 ML IVPB SCH ×2 (06:24→15:51)
[2017-07-10] MEDS ORDERED: Magnesium Sulfate 1 GM in D5% in Water 100 ML IVPB ONE (08:55)
[2017-07-10] MEDS ORDERED: Magnesium Oxide 400 MG TABLET PO SCH (09:00)
--- NOTE | 2017-07-10 09:53 | Internal Med Progress Note ---
<Marcio Lazo - Last Filed: 07/10/17 13:52> Date of Encounter: 07/10/17 Time of Encounter: 08:00 - Assessment and plan (1) Severe sepsis Current Visit: Yes Status: Acute Assessment and plan: - 3 SIRS criteria (HR 131, RR 24, WBC 18.9 with 24% bandemia) and lactic acid 3.5 on initial presentation. - Likely secondary to multifocal pneumonia as seen on CTA chest. - Blood cultures pending. Will obtain sputum culture if possible. - Clinically improves as tachycardia & tachypnea resolved and lactic acid normalized. - Check respiratory infection panel, urine antigens for Legionella & S. pneumoniae. - Aggressive hydration with IV fluid. - Start Tamiflu for the concern of influenza. Continue vancomycin, ceftriaxone and azithromycin. - Closely monitor. (2) Community acquired pneumonia Current Visit: Yes Status: Acute Assessment and plan: - CTA chest on 07/09/17 found acute bilateral multifocal pneumonia. - Concern of influenza given patient's myalgia and unvaccinated status. - Check respiratory infection panel. Also check urine antigens for Legionella and Strept. pneumoniae. - Start Tamiflu. Continue vancomycin, ceftriaxone and azithromycin. - Continue bronchodilators and supplemental oxygen. Qualifiers: Laterality: unspecified laterality Qualified Code(s): J18.9 - Pneumonia, unspecified organism (3) Acute respiratory failure with hypoxia Current Visit: Yes Status: Acute Assessment and plan: - Sudden onset of dyspnea since the day prior to admission with increased oxygen need (Patient was not on oxygen at home) - CTA chest on 07/09/17 found no evidence of PE but acute bilateral multifocal pneumonia. - Continue antibitoics, bronchodilators and supplemental oxygen. (4) DVT prophylaxis Current Visit: No Status: Acute Assessment and plan: - Continue SQ heparin. - Subjective Interval history: This note is NOT for billing purpose. Patient was seen and examined this morning. Patient reports significant shortness of breath since yesterday morning. It's associated with pleuritic chest & bilateral flank pain along with some generalized myalgia. . Patient reports no cough but feels it's coming. Patient denies fever, chills. Patient denies known sick contact. Patient has not yet received flu vaccine this year. - Constitutional Vitals: Temp Pulse Resp BP Pulse Ox 97.8 F 91 16 95/48 98 07/10/17 07:01 07/10/17 07:01 07/10/17 07:01 07/10/17 07:01 07/10/17 07:01 General appearance: Present: cooperative, A&O X 3, pleasant, answers questions appropriately - Head Head exam: Present: atraumatic, normocephalic - Eye Eye exam: Present: EOMI, conjuntiva pink, sclera anicteric - Neck Neck exam general surgery: Present: supple, trachea midline. Absent: lymphadenopathy - Respiratory Respiratory exam: Present: chest wall tenderness, rales, rhonchi (Diffuse). Absent: accessory muscle use, wheezes - Cardiovascular Cardiovascular exam: Present: RRR, +S1, +S2. Absent: diastolic murmur, gallop, rubs, systolic murmur - GI/Abdominal GI/Abdominal exam: Present: normal bowel sounds, soft, no peritoneal signs. Absent: distended, tenderness - Extremities Exam Extremities exam: Present: warm, radial pulses palpable and symmetrical. Absent : cyanotic, pedal edema - Neurological Exam Neurological exam: Present: oriented X3, no focal deficits. Absent: facial droop, speech deficit - Skin Skin exam: Present: dry, intact, warm Internal Medicine: Result - Labs CBC & Chem 7: 07/10/17 05:02 07/10/17 05:02 Labs: Short CBC 07/10/17 Range/Units 05:02 WBC 20.6 H (4.3-11.1) K/mcL Hgb 11.6 D (11.5-15.4) g/dL Hct 33.7 L (35.3-44.9) % Plt Count 196 (140-400) K/mcL Neutrophils # 17.4 H (1.6-8.9) K/mcL BMP 07/10/17 05:02 Sodium 135 L Potassium 3.6 Chloride 104 Carbon Dioxide 25 BUN 10 Creatinine 0.74 Glucose 109 H Calcium 8.0 L Cardiac Enzymes 07/10/17 Range/Units 05:02 Troponin I 0.01 (0-0.03) ng/mL Liver Function 07/10/17 Range/Units 05:02 Total Bilirubin 0.8 (0.2-1.2) mg/dL AST 12 (5-34) Units/L ALT 10 (0-55) Units/L Alkaline Phosphatase 44 (38-126) Units/L Albumin 2.6 L (3.5-5.0) g/dL - ABG Interpretation ABG results: PT/INR, D-dimer D-Dimer 4959 ng/mLFEU (0-500) H 07/09/17 22:00 Consult Discharge Plan - Plan Referrals: NONE,PCP [Primary Care Provider] - <Phani Phan - Last Filed: 07/10/17 15:51> Date of Encounter: 07/10/17 - Constitutional Vitals: Temp Pulse Resp BP Pulse Ox 98.2 F 86 18 95/58 96 07/10/17 14:51 07/10/17 14:51 07/10/17 15:47 07/10/17 14:51 07/10/17 15:47 Internal Medicine: Result - Labs CBC & Chem 7: 07/10/17 05:02 07/10/17 05:02 Labs: Short CBC 07/10/17 Range/Units 05:02 WBC 20.6 H (4.3-11.1) K/mcL Hgb 11.6 D (11.5-15.4) g/dL Hct 33.7 L (35.3-44.9) % Plt Count 196 (140-400) K/mcL Neutrophils # 17.4 H (1.6-8.9) K/mcL BMP 07/10/17 05:02 Sodium 135 L Potassium 3.6 Chloride 104 Carbon Dioxide 25 BUN 10 Creatinine 0.74 Glucose 109 H Calcium 8.0 L Cardiac Enzymes 07/10/17 07/10/17 Range/Units 05:02 11:46 Troponin I 0.01 0.00 (0-0.03) ng/mL Liver Function 07/10/17 Range/Units 05:02 Total Bilirubin 0.8 (0.2-1.2) mg/dL AST 12 (5-34) Units/L ALT 10 (0-55) Units/L Alkaline Phosphatase 44 (38-126) Units/L Albumin 2.6 L (3.5-5.0) g/dL - ABG Interpretation ABG results: PT/INR, D-dimer D-Dimer 4959 ng/mLFEU (0-500) H 07/09/17 22:00 - Attending Attestation I examined this patient and my medical decision-making was reviewed with the Resident Physician on 07/10/17. I agree with the documented findings, disposition and treatment plan as described except to the extent set forth below. Ms Partida was admitted earlier this AM for sepsis related to pneumonia. Her resp infection panel is negative Exam Alert Comfortable Heart tachy Agree with plan as above Cultures pending.
[2017-07-10 14:25] LABS: Adenovirus Not Detected (Not Detect); Bordetella Pertussis Not Detected (Not Detect); Chlamydophila pneumoniae Not Detected (Not Detect); Coronavirus 229E Not Detected (Not Detect); Coronavirus HKU1 Not Detected (Not Detect); Coronavirus NL63 Not Detected (Not Detect); Coronavirus OC43 Not Detected (Not Detect); Human Metapneumovirus Not Detected (Not Detect); Human Rhinovirus/Enterovirus Not Detected (Not Detect); Influenza A Subtype 2009 H1 Not Detected (Not Detect); Influenza A Untypeable Not Detected (Not Detect); Influenza B Not Detected (Not Detect); Mycoplasma pneumoniae Not Detected (Not Detect); Parainfluenza Virus 1 Not Detected (Not Detect); Parainfluenza Virus 2 Not Detected (Not Detect); Parainfluenza Virus 3 Not Detected (Not Detect); Parainfluenza Virus 4 Not Detected (Not Detect); Respiratory Syncytial Virus Not Detected (Not Detect)
[2017-07-11] MEDS: Ketorolac 15 MG/ML VIAL IVP PRN ×2 (00:35→06:27)
[2017-07-11] MEDS: 0.9 % Sodium Chloride w KCl 20 MEQ/1,000 ML MLS IVC SCH ×4 (00:39→21:03)
[2017-07-11] MEDS: Ipratropium/Albuterol Neb 3 ML IH SCH ×4 (03:37→22:44)
[2017-07-11 05:05] LABS: Basophils % 0.3 %; Eosinophils # 0.5 K/mcL (0.0-0.6); Eosinophils % 3.6 %; Hematocrit 31.2 % (35.3-44.9); Hemoglobin 10.2 g/dL (11.5-15.4); Immature Granulocytes % 0.9 % (0-4); Lymphocytes # 2.1 K/mcL (0.6-4.6); Lymphocytes % 13.7 %; Mean Corpuscular HGB Conc 32.7 g/dL (31.6-35.5); Mean Corpuscular Hemoglobin 29.6 pg (28.0-33.3); Mean Corpuscular Volume 90.4 fL (83.0-100.0); Mean Platelet Volume 8.6 fL (9.4-12.4); Monocytes # 0.7 K/mcL (0.0-1.3); Monocytes % 4.4 %; Neutrophils # 11.6 K/mcL (1.6-8.9); Platelet Count 173 K/mcL (140-400); Red Blood Count 3.45 M/mcL (3.82-4.97); Red Cell Distribution Width 12.4 % (11.5-14.5); Segmented Neutrophils % 77.1 %
[2017-07-11] MEDS: Azithromycin 500 MG in D5% in Water 250 ML IVPB SCH (05:16)
[2017-07-11] MEDS: cefTRIAXone 2,000 MG in Water for inj. (sterile) 20 ML IVP SCH (05:17)
[2017-07-11] MEDS: *HR* Heparin 5,000 UNIT/ML VIAL SQ SCH ×3 (05:18→21:03)
[2017-07-11 05:23] LABS: BUN/Creatinine Ratio 14 (6-26); Blood Urea Nitrogen 9 mg/dL (7-20); Calcium 8.1 mg/dL (8.6-10.8); Carbon Dioxide 23 mEq/L (19-29); Chloride 111 mEq/L (98-109); Glucose 93 mg/dL (70-99); Magnesium 1.9 mg/dL (1.6-2.6); Osmolality,Calculated 286 (280-300); Sodium 139 mEq/L (136-145); eGFR For African Americans > 60 (> 60); eGFR For Non-African Americans > 60 (> 60)
[2017-07-11 05:27] LABS: Potassium 3.9 mEq/L (3.5-4.5)
[2017-07-11] MEDS: Vancomycin 1,500 MG in D5% in Water 250 ML IVPB SCH ×2 (06:26→18:08)
[2017-07-11] MEDS: Acetaminophen 325 MG TABLET PO PRN ×2 (08:21→15:57)
[2017-07-11] MEDS ORDERED: Hydrocortisone Sodium Succ 100 MG/2 ML VIAL IVP ONE (09:33)
--- NOTE | 2017-07-11 10:05 | Internal Med Progress Note ---
<EulogioZaire Edwin - Last Filed: 07/11/17 11:08> Date of Encounter: 07/11/17 Time of Encounter: 10:03 - Assessment and plan (1) Severe sepsis Current Visit: Yes Status: Acute Assessment and plan: - 3 SIRS criteria (HR 131, RR 24, WBC 18.9 with 24% bandemia) and lactic acid 3.5 on initial presentation. - Likely secondary to multifocal pneumonia as seen on CTA chest. - Blood cultures pending. Will obtain sputum culture if possible. - Clinically reporting worsening dyspnea this AM. Tachycardia and hypotensive. No longer tachypnic and lactic acid normalized. - Respiratory infection panel negative, urine antigens for Legionella & S. pneumoniae negative - Aggressive hydration with IV fluid. - Received Tamiflu for the concern of influenza. - Switch to levaquin and cefepime for concern for pseudomonas due to worsening dyspnea. Continue vancomycin. - One dose of hydrocortisone 100mg IV as pt is still hypotensive despite fluids - consider continuing if responding - Consult Pulmonology - appreciate recommendations - Closely monitor. (2) Community acquired pneumonia Current Visit: Yes Status: Acute Assessment and plan: - CTA chest on 07/09/17 found acute bilateral multifocal pneumonia. - Respiratory infection panel negative. Urine antigens for Legionella and Strept. pneumoniae negative - Switch to levaquin and cefepime. Continue vancomycin. - Continue bronchodilators and supplemental oxygen. Qualifiers: Laterality: unspecified laterality Qualified Code(s): J18.9 - Pneumonia, unspecified organism (3) Acute respiratory failure with hypoxia Current Visit: Yes Status: Acute Assessment and plan: - Sudden onset of dyspnea since the day prior to admission with increased oxygen need (Patient was not on oxygen at home) - Continued dyspnea on 3L O2 NC - CTA chest on 07/09/17 found no evidence of PE but acute bilateral multifocal pneumonia. - Continue antibitoics, bronchodilators, and supplemental oxygen. (4) DVT prophylaxis Current Visit: No Status: Acute Assessment and plan: - Continue SQ heparin. - Subjective Interval history: Pt seen and examined. She reports shortness of breath, diaphoresis, and pleuritic chest/bilateral side pain. She states her breathing is worse this AM compared to yesterday. Denies syncope, N/V/D/C, dysuria, or leg pain/edema. - Constitutional Vitals: Temp Pulse Resp BP Pulse Ox 99.6 F 106 15 96/58 99 11/06/17 06:21 07/11/17 06:21 07/11/17 06:21 07/11/17 06:21 07/11/17 06:21 General appearance: Present: cooperative, mild distress, A&O X 3, answers questions appropriately - Head Head exam: Present: atraumatic, normocephalic - Eye Eye exam: Present: conjuntiva pink, sclera anicteric - Neck Neck exam general surgery: Present: supple, trachea midline. Absent: lymphadenopathy - Respiratory Respiratory exam: Present: rales, rhonchi (bilateral lower). Absent: accessory muscle use, wheezes - Cardiovascular Cardiovascular exam: Present: RRR, +S1, +S2. Absent: diastolic murmur, systolic murmur - GI/Abdominal GI/Abdominal exam: Present: normal bowel sounds, soft, no peritoneal signs. Absent: distended, tenderness - Extremities Exam Extremities exam: Present: warm, radial pulses palpable and symmetrical. Absent : calf tenderness, cyanotic, pedal edema - Neurological Exam Neurological exam: Present: CN II-XII intact, oriented X3, no focal deficits. Absent: facial droop, speech deficit - Skin Skin exam: Present: dry, intact Internal Medicine: Result - Labs CBC & Chem 7: 07/11/17 04:33 07/11/17 04:33 Labs: Short CBC 07/11/17 Range/Units 04:33 WBC 15.1 H (4.3-11.1) K/mcL Hgb 10.2 L (11.5-15.4) g/dL Hct 31.2 L (35.3-44.9) % Plt Count 173 (140-400) K/mcL Neutrophils # 11.6 H (1.6-8.9) K/mcL BMP 07/11/17 04:33 Sodium 139 Potassium 3.9 Chloride 111 H Carbon Dioxide 23 BUN 9 Creatinine 0.66 Glucose 93 Calcium 8.1 L Cardiac Enzymes 07/10/17 07/10/17 Range/Units 11:46 18:18 Troponin I 0.00 0.00 (0-0.03) ng/mL - ABG Interpretation ABG results: PT/INR, D-dimer D-Dimer 4959 ng/mLFEU (0-500) H 07/09/17 22:00 Consult Discharge Plan - Plan Referrals: NONE,PCP [Primary Care Provider] - <Phani Phan - Last Filed: 07/11/17 17:26> Date of Encounter: 07/11/17 - Assessment and plan (1) Acute respiratory failure with hypoxia Current Visit: Yes Status: Acute (2) Severe sepsis Current Visit: Yes Status: Acute (3) Pneumonia Current Visit: Yes Status: Acute Assessment and plan: Suspected viral pneumonia. Qualifiers: Pneumonia type: due to unspecified organism Laterality: bilateral Lung location: lower lobe of lung Qualified Code(s): J18.9 - Pneumonia, unspecified organism (4) Morbid obesity with BMI of 40.0-44.9, adult Current Visit: Yes Status: Chronic - Constitutional Vitals: Temp Pulse Resp BP Pulse Ox 99.9 F H 101 16 107/72 100 07/11/17 15:39 07/11/17 15:39 07/11/17 16:20 07/11/17 15:39 07/11/17 16:20 Internal Medicine: Result - Labs CBC & Chem 7: 07/11/17 04:33 07/11/17 04:33 Labs: Short CBC 07/11/17 Range/Units 04:33 WBC 15.1 H (4.3-11.1) K/mcL Hgb 10.2 L (11.5-15.4) g/dL Hct 31.2 L (35.3-44.9) % Plt Count 173 (140-400) K/mcL Neutrophils # 11.6 H (1.6-8.9) K/mcL BMP 07/11/17 04:33 Sodium 139 Potassium 3.9 Chloride 111 H Carbon Dioxide 23 BUN 9 Creatinine 0.66 Glucose 93 Calcium 8.1 L Cardiac Enzymes 07/10/17 Range/Units 18:18 Troponin I 0.00 (0-0.03) ng/mL - ABG Interpretation ABG results: PT/INR, D-dimer D-Dimer 4959 ng/mLFEU (0-500) H 07/09/17 22:00 - Attending Attestation I examined this patient and my medical decision-making was reviewed with the Resident Physician on 07/11/17. I agree with the documented findings, disposition and treatment plan as described except to the extent set forth below. Ms Partida is currently admitted for bilateral multifocal pneumonia. She remains moderate to high risk due to potential for worsening respiratory status. Ms Partida is resting comfortably at this time. No CP currently. Has dyspnea. Fever persisted. Some cough. Some aches. Exam Alert. Comfortable Mucus membranes moist Heart reg Lungs with scattered rhonchi Abd soft I/P 1. PNA 2. hypoxia Further diagnoses and plan as above.
--- NOTE | 2017-07-11 12:02 | Pulmonology Consult Note ---
Date of Encounter: 07/11/17 Time of Encounter: 11:58 Assessment and Plan (1) Acute respiratory failure with hypoxia Current Visit: Yes Status: Acute In Conclusion this is a 41-year-old woman with no significant past medical history who presented with acute hypoxemic respiratory failure which is secondary to multifocal pneumonia. This is concerning for severe community- acquired pneumonia and my pretest probability is high that this is annual influenza despite a negative respiratory infectious panel. Appropriately she has been covered with antimicrobials which likely DPD escalated over the next 24 -48 hours based upon further sensitivities. Differential diagnosis would include inflammatory condition such as connective tissues diseases acute eosinophilic pneumonia or much less likely diffuse alveolar hemorrhage with or without CTD. Present with severe sepsis but lactate is normalized after fluid resuscitation she remains uncomfortable for breathing standpoint requiring supplemental oxygen. Encouragingly her WBC count is trending down since admission. Lastly and not likely directly related to this admission I have a high pretest probability for strict sleep apnea as patient also is complaining of daytime hypersomnolence frequent napping and unrefreshed sleep. Recs: -Keep supplemental o2 to keep SaO2 arond 92-94% Bipap can be used to help with work of breathing as needed -Repeat Influenca PCR and would continue treatment with Tamiflu until repeat is negative -Agree with current antimicrobials pending culture (including atypical infections and MRSA) -At this point I would avoid the use of corticosteroids and given that this is undifferentiated pneumonia and still may require represent an inflammatory condition although less likely -I have sent inflammtory/CTD studies for completion -Chemical DVT prophylaxis unless contraindication arises -Outpatient PSG -A bronchoscopy is recommended. The procedure , risks, benefits, complications, and expected outcomes have been reviewed. Benefits of diagnosis, as well as risks to include bleeding, infection, pneumothorax which may require surgical intervention, and in a small population. The patient is aware that sometimes test is nondiagnostic. Discussed with patient and agrees to proceed. Please Keep NPO at Midnight. My initial evaluation and recommendations were discussed with the primary medicine attending Dr. Phan. (2) Sleep-disordered breathing Current Visit: Yes Status: Acute (3) Community acquired pneumonia Current Visit: Yes Status: Acute Qualifiers: Laterality: unspecified laterality Qualified Code(s): J18.9 - Pneumonia, unspecified organism (4) Severe sepsis Current Visit: Yes Status: Acute History of Present Illness Consult date: 07/11/17 Requesting physician: Phani Phan Reason for consult: pneumonia Chief complaint: Shortness of breath History of present illness: This is a 41-year-old woman who presented 2 days ago for flulike symptoms including shortness of breath chest pain nonproductive cough myalgias headache and fever to greater than 101 Fahrenheit at home. She is otherwise healthy without any chronic medical problems she does take Flexeril for restless leg syndrome. Otherwise no scheduled medications she is denies taking over-the- counter medications no recent sick exposure travel and although she keeps a dog she does not have any exotic pets. She does not smoke denies alcohol use or illicit drugs. She has no history of chronic arthralgias or rash however it was noted that she had a blister on her back when she presented to the emergency department which she was told was a "fever blister" she denies hemoptysis during this time. In the ED was noted to be hypoxemic and a CTA was performed which was notable for multifocal pneumonia patient has been afebrile here but met severe sepsis criteria she has been treated for severe community-acquired pneumonia with possibility of MRSA infection since along with possibility of annual influenza with Tamiflu. A respiratory infectious panel was obtained which was negative for atypical infections or viral etiology. Pulmonary was consulted for further evaluation Past Med Surg Social Fam HX - Past Medical History Medical history: no medical history Psychiatric history: no psych history - Past Surgical History Surgical History: cholecystectomy, hysterectomy - Social History Smoking Status: Never smoker Smokeless Tobacco Status: No Alcohol use: none Drug use: none - Family History Father Hx Family Cardiac Disorders: Yes (HTN, CVA) Hx Family Respiratory Disorders: Yes (COPD) Hx Family Cancer: No Hx Family GI Disorders: Yes (GERD) Hx Family Endocrine Disorder: No Hx Family Neuromuscular Disorders: No Hx Family Neurologic Disorders: No Hx Family HEENT Disorders: No Hx Family Autoimmune Disorders: No Mother Hx Family Cardiac Disorders: No Hx Family Respiratory Disorders: No Hx Family Cancer: Yes (Lung, colon, breast, bone) Hx Family GI Disorders: Yes (GERD) Hx Family Endocrine Disorder: No Hx Family Neuromuscular Disorders: No Hx Family Neurologic Disorders: No Hx Family HEENT Disorders: No Hx Family Autoimmune Disorders: No Medications and Allergies Buprenorphine HCl/Naloxone HCl [Suboxone 8 mg-2 mg Sl Film] 2 each SL DAILY 01/19 [History] Gabapentin [Neurontin] 300 - 600 mg PO HS PRN 07/10/17 [History] 3 Allergy/AdvReac Type Severity Reaction Status Date / Time No Known Allergies Allergy Verified 01/23/17 23:40 All Systems: A 10-system review of systems was performed and is negative for pertinent findings except as documented above in the HPI. Physical Examination Vital Signs: Vital Signs, Last 4 Hours Resp Pulse Ox 07/11/17 11:05 16 99 General appearance: appears uncomfortable ENT: oropharynx moist Mallampati (class): 3 Neck: supple Effort: mildly labored Auscultation: bilateral: clear Cardiovascular: regular rate and rhythm Gastrointestinal: normoactive bowel sounds, soft, non-tender Integumentary: other (Noted to have a bandage around the lumbar region of her spine this was taken down and examined there is no significant exudate from this area is dressed appropriately no associated rashes it appears to have the look of a blister that has been broken but I do not see any significant serous drainage) Extremities: no cyanosis, no edema, no clubbing Musculoskeletal: no deformities normal mental status, non-focal exam anxious Results - Laboratory Findings CBC and BMP: 07/11/17 04:33 07/11/17 04:33 PT/INR, D-dimer D-Dimer 4959 ng/mLFEU (0-500) H 07/09/17 22:00 Abnormal lab findings: Abnormal lab results WBC 15.1 K/mcL (4.3-11.1) H 07/11/17 04:33 RBC 3.45 M/mcL (3.82-4.97) L 07/11/17 04:33 Hgb 10.2 g/dL (11.5-15.4) L 07/11/17 04:33 Hct 31.2 % (35.3-44.9) L 07/11/17 04:33 MPV 8.6 fL (9.4-12.4) L 07/11/17 04:33 Band Neutrophils % 24.0 % (0-4) H 07/09/17 22:00 Neutrophils # 11.6 K/mcL (1.6-8.9) H 07/11/17 04:33 Toxic Granulation Present (Not Present) A 07/09/17 22:00 D-Dimer 4959 ng/mLFEU (0-500) H 07/09/17 22:00 Chloride 111 mEq/L (98-109) H 07/11/17 04:33 Calcium 8.1 mg/dL (8.6-10.8) L 07/11/17 04:33 Serum Total Protein 5.8 g/dL (6.0-8.3) L 07/10/17 05:02 Albumin 2.6 g/dL (3.5-5.0) L 07/10/17 05:02 Albumin/Globulin Ratio 0.8 (1.1-2.2) L 07/10/17 05:02 - Diagnostic Findings Chest x-ray: report reviewed, image reviewed CT scan - chest: report reviewed, image reviewed - Clinical Findings Intake & Output: Intake & Output 07/10/17 07/11/17 07/11/17 23:59 07:59 15:59 Intake Total 1370 / 1370 140 / 140 1240 / 1240 Output Total 900 / 900 Balance 1370 / 1370 -760 / -760 1240 / 1240 Weight 106.4 kg 106.4 kg Consult Discharge Plan - Plan Referrals: NONE,PCP [Primary Care Provider] -
[2017-07-11] MEDS: Levofloxacin 750 MG/150 ML 750 MG/150 ML BAG IVPB SCH (12:08)
[2017-07-11] MEDS: *HR* Morphine 2 MG/ML SYRINGE IVP PRN ×2 (13:55→19:06)
[2017-07-11 15:22] LABS: Adenovirus Not Detected (Not Detect); Bordetella Pertussis Not Detected (Not Detect); Chlamydophila pneumoniae Not Detected (Not Detect); Coronavirus 229E Not Detected (Not Detect); Coronavirus HKU1 Not Detected (Not Detect); Coronavirus NL63 Not Detected (Not Detect); Coronavirus OC43 Not Detected (Not Detect); Human Metapneumovirus Not Detected (Not Detect); Human Rhinovirus/Enterovirus Not Detected (Not Detect); Influenza A Subtype 2009 H1 Not Detected (Not Detect); Influenza A Untypeable Not Detected (Not Detect); Influenza B Not Detected (Not Detect); Mycoplasma pneumoniae Not Detected (Not Detect); Parainfluenza Virus 1 Not Detected (Not Detect); Parainfluenza Virus 2 Not Detected (Not Detect); Parainfluenza Virus 3 Not Detected (Not Detect); Parainfluenza Virus 4 Not Detected (Not Detect); Respiratory Syncytial Virus Not Detected (Not Detect)
[2017-07-11] MEDS ORDERED: Cefepime HCl 2,000 MG in D5% in Water (Mini-Bag+) 100 ML IVPB SCH (16:00)
--- NOTE | 2017-07-11 16:56 | Electrocardiograph Report ---
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
[2017-07-11] MEDS: Cefepime HCl 2,000 MG in Water for inj. (sterile) 20 ML IVP SCH (18:07)
[2017-07-12] MEDS: Cefepime HCl 2,000 MG in Water for inj. (sterile) 20 ML IVP SCH ×3 (00:04→16:00)
[2017-07-12] MEDS: *HR* Morphine 2 MG/ML SYRINGE IVP PRN ×3 (00:11→15:58)
[2017-07-12 01:22] LABS: Amphetamine Screen,Urine Negative ng/mL (Cutoff=1000); Barbiturate Screen,Urine Negative ng/mL (Cutoff=200); Benzodiazepines Screen,Urine Positive ng/mL (Cutoff=200); Cannabinoid Screen,Urine Negative ng/mL (Cutoff = 50); Cocaine Screen,Urine Negative ng/mL (Cutoff= 300); Opiate Screen,Urine Positive ng/mL (Cutoff=300); Phencyclidine Screen,Urine Negative ng/mL (Cutoff=25)
[2017-07-12] MEDS: 0.9 % Sodium Chloride w KCl 20 MEQ/1,000 ML MLS IVC SCH (03:56)
[2017-07-12] MEDS: Acetaminophen 325 MG TABLET PO PRN (04:00)
[2017-07-12] MEDS: Vancomycin 1,500 MG in D5% in Water 250 ML IVPB SCH ×2 (04:01→16:01)
[2017-07-12] MEDS: Ipratropium/Albuterol Neb 3 ML IH SCH ×4 (04:12→22:30)
[2017-07-12] MEDS: *HR* Heparin 5,000 UNIT/ML VIAL SQ SCH ×3 (05:20→22:52)
[2017-07-12 06:25] LABS: Hematocrit 31.1 % (35.3-44.9); Hemoglobin 10.5 g/dL (11.5-15.4); Mean Corpuscular HGB Conc 33.8 g/dL (31.6-35.5); Mean Corpuscular Volume 88.9 fL (83.0-100.0); Mean Platelet Volume 8.8 fL (9.4-12.4); Platelet Count 189 K/mcL (140-400)
[2017-07-12 06:38] LABS: BUN/Creatinine Ratio 8 (6-26); Blood Urea Nitrogen 5 mg/dL (7-20); Calcium 8.6 mg/dL (8.6-10.8); Carbon Dioxide 19 mEq/L (19-29); Chloride 112 mEq/L (98-109); Glucose 92 mg/dL (70-99); Osmolality,Calculated 285 (280-300); Potassium 4.6 mEq/L (3.5-4.5); eGFR For African Americans > 60 (> 60); eGFR For Non-African Americans > 60 (> 60)
[2017-07-12 06:39] LABS: Sodium 139 mEq/L (136-145)
--- NOTE | 2017-07-12 07:52 | Pre-Sedation Evaluation ---
Pre-sedation evaluation - Pre-sedation checklist Date of procedure: 07/12/17 Procedure: Bronchoscopy Recent Vitals: Last Vital Signs Temp 98.9 F 07/12/17 06:56 Pulse 107 07/12/17 06:56 Resp 20 07/12/17 06:56 BP 118/62 07/12/17 06:56 Pulse Ox 99 07/12/17 04:12 H&P (including ROS) documented in medical record: Yes Previous reaction to sedatives/anesthetics: No Dietary Status: NPO after Midnight Airway Assessment: Patient can open mouth completely, TMJ function normal Dentition: dentures removed Possible difficult airway: Yes If Yes;: Morbid obesity ASA Classification *see protocol: CLASS III-Severe systemic disease Plan of Care: Pt appropriate candidate for procedure/moderate/conscious sedation , Risks/benefits of procedure/sedation discussed w/ patient/family
[2017-07-12] MEDS ORDERED: *HR* Midazolam HCl 5 MG/5 ML VIAL IVP ONE ×2 (07:53→08:43)
[2017-07-12] MEDS ORDERED: *HR* EPINEPHrine 1 MG/10 ML SYRINGE INTRATRACH PRN (07:53)
[2017-07-12] MEDS ORDERED: *HR* FentaNYL (PF) 100 MCG/2 ML VIAL IVP ONE (07:53)
[2017-07-12] MEDS ORDERED: Tetracaine/Benzocaine/Butamben 200MG/SPRAY (100SPY/BOT) MM ONE (07:53)
[2017-07-12] MEDS ORDERED: Ringers Solution, Lactated 1,000 ML IVC SCH (08:00)
[2017-07-12] MEDS ORDERED: *HR* FentaNYL (PF) 100 MCG/2 ML VIAL ONE (08:43)
[2017-07-12] MEDS ORDERED: Ipratropium/Albuterol Neb 3 ML ONE (09:25)
--- NOTE | 2017-07-12 09:39 | Internal Med Progress Note ---
<Zaire Krishnan Edwin - Last Filed: 07/12/17 09:37> Date of Encounter: 07/12/17 Time of Encounter: 09:37 - Assessment and plan (1) Severe sepsis Current Visit: Yes Status: Acute Assessment and plan: 3 SIRS criteria (HR 131, RR 24, WBC 18.9 with 24% bandemia) and lactic acid 3.5 on initial presentation - WBC trending down, now 12.0 Likely secondary to multifocal pneumonia as seen on CTA chest Blood cultures pending. Will obtain sputum culture if possible Clinically continued dyspnea this AM. Tachycardia. No longer tachypnic, BP is normalized, and lactic acid normalized Respiratory infection panel negative, urine antigens for Legionella & S. pneumoniae negative Aggressive hydration with IV fluid Received Tamiflu for the concern of influenza On levaquin, cefepime, and vancomycin Consult Pulmonology - bronchoscopy today - pending fluid analysis and cultures (2) Community acquired pneumonia Current Visit: Yes Status: Acute Assessment and plan: CTA chest on 07/09/17 found acute bilateral multifocal pneumonia Respiratory infection panel negative. Urine antigens for Legionella and Strep. pneumoniae negative Continue levaquin, cefepime, and vancomycin Continue bronchodilators and supplemental oxygen Qualifiers: Laterality: unspecified laterality Qualified Code(s): J18.9 - Pneumonia, unspecified organism (3) Acute respiratory failure with hypoxia Current Visit: Yes Status: Acute Assessment and plan: Sudden onset of dyspnea since the day prior to admission with increased oxygen need (Patient was not on oxygen at home) Continued dyspnea on 2L O2 NC CTA chest on 07/09/17 found no evidence of PE but acute bilateral multifocal pneumonia Continue antibiotics, bronchodilators, and supplemental oxygen (4) DVT prophylaxis Current Visit: No Status: Acute Assessment and plan: Continue SQ heparin - Subjective Interval history: Pt seen and examined. She reports continued shortness of breath, cough, and myalgias. Her pain with breathing is mildly improved. Denies syncope, chest pain , N/V/D/C, dysuria, or leg pain/edema. - Constitutional Vitals: Temp Pulse Resp BP Pulse Ox 98.9 F 98 18 111/60 98 07/12/17 09:08 07/12/17 09:30 07/12/17 09:30 07/12/17 09:30 07/12/17 09:30 General appearance: Present: cooperative, mild distress, A&O X 3, answers questions appropriately - Head Head exam: Present: atraumatic, normocephalic - Eye Eye exam: Present: conjuntiva pink, sclera anicteric - Neck Neck exam general surgery: Present: supple, trachea midline. Absent: lymphadenopathy - Respiratory Respiratory exam: Present: decreased breath sounds, rales. Absent: accessory muscle use, rhonchi, wheezes - Cardiovascular Cardiovascular exam: Present: RRR, +S1, +S2. Absent: diastolic murmur, systolic murmur - GI/Abdominal GI/Abdominal exam: Present: normal bowel sounds, soft, no peritoneal signs. Absent: distended, tenderness - Extremities Exam Extremities exam: Present: warm, radial pulses palpable and symmetrical. Absent : calf tenderness, cyanotic, pedal edema - Neurological Exam Neurological exam: Present: CN II-XII intact, oriented X3, no focal deficits. Absent: facial droop, speech deficit - Skin Skin exam: Present: dry, intact Internal Medicine: Result - Labs CBC & Chem 7: 07/12/17 06:14 07/12/17 06:14 Labs: Short CBC 07/12/17 Range/Units 06:14 WBC 12.0 H (4.3-11.1) K/mcL Hgb 10.5 L (11.5-15.4) g/dL Hct 31.1 L (35.3-44.9) % Plt Count 189 (140-400) K/mcL BMP 07/12/17 06:14 Sodium 139 Potassium 4.6 H Chloride 112 H Carbon Dioxide 19 BUN 5 L Creatinine 0.66 Glucose 92 Calcium 8.6 - ABG Interpretation ABG results: PT/INR, D-dimer D-Dimer 4959 ng/mLFEU (0-500) H 07/09/17 22:00 Consult Discharge Plan - Plan Referrals: NONE,PCP [Primary Care Provider] - <Sabrina Baptiste - Last Filed: 07/12/17 17:18> Date of Encounter: 07/12/17 - Constitutional Vitals: Temp Pulse Resp BP Pulse Ox 99.6 F 87 18 122/75 98 07/12/17 15:09 07/12/17 15:09 07/12/17 15:09 07/12/17 15:09 07/12/17 10:51 Internal Medicine: Result - Labs CBC & Chem 7: 07/12/17 06:14 07/12/17 06:14 Labs: Short CBC 07/12/17 Range/Units 06:14 WBC 12.0 H (4.3-11.1) K/mcL Hgb 10.5 L (11.5-15.4) g/dL Hct 31.1 L (35.3-44.9) % Plt Count 189 (140-400) K/mcL BMP 07/12/17 06:14 Sodium 139 Potassium 4.6 H Chloride 112 H Carbon Dioxide 19 BUN 5 L Creatinine 0.66 Glucose 92 Calcium 8.6 - ABG Interpretation ABG results: PT/INR, D-dimer D-Dimer 4959 ng/mLFEU (0-500) H 07/09/17 22:00 - Attending Attestation I have seen and examined the patient independently. I have discussed with resident physician Dr Krishnan regarding the management plan. Agree with the documentation. Patient still has cough and shortness of breath. Had bronchoscopy today. Steroids are started per pulmonology recommendation. We will continue current antibiotic and supportive treatment. Follow-up BALF culture result
[2017-07-12 10:29] LABS: Source of Body Fluid RML
[2017-07-12] MEDS: 0.9 % Sodium Chloride 1,000 ML IVC SCH ×2 (12:19→22:53)
[2017-07-12] MEDS: Levofloxacin 750 MG/150 ML 750 MG/150 ML BAG IVPB SCH (12:20)
[2017-07-12] MEDS: predniSONE 20 MG TABLET PO SCH (12:20)
[2017-07-12] MEDS ORDERED: Aminoglycoside Consult 1 EACH MC ONE (12:48)
[2017-07-12 20:07] LABS: Appearance of Body Fluid Slightly Hazy (Clear); Volume of Body Fluid 15 mL
--- NOTE | 2017-07-12 21:35 | Electrocardiograph Report ---
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
[2017-07-13] MEDS: Cefepime HCl 2,000 MG in Water for inj. (sterile) 20 ML IVP SCH (00:11)
[2017-07-13] MEDS: Ketorolac 15 MG/ML VIAL IVP PRN (00:23)
[2017-07-13] MEDS: Ipratropium/Albuterol Neb 3 ML IH SCH ×2 (04:44→09:55)
[2017-07-13 05:34] LABS: BUN/Creatinine Ratio 9 (6-26); Blood Urea Nitrogen 6 mg/dL (7-20); Carbon Dioxide 20 mEq/L (19-29); Chloride 109 mEq/L (98-109); Glucose 74 mg/dL (70-99); Osmolality,Calculated 284 (280-300); Potassium 3.8 mEq/L (3.5-4.5); Sodium 139 mEq/L (136-145); eGFR For African Americans > 60 (> 60); eGFR For Non-African Americans > 60 (> 60)
[2017-07-13 05:50] LABS: Hematocrit 32.6 % (35.3-44.9); Mean Corpuscular HGB Conc 33.7 g/dL (31.6-35.5); Mean Corpuscular Hemoglobin 29.8 pg (28.0-33.3); Mean Corpuscular Volume 88.3 fL (83.0-100.0); Mean Platelet Volume 8.9 fL (9.4-12.4); Platelet Count 269 K/mcL (140-400); Red Blood Count 3.69 M/mcL (3.82-4.97)
[2017-07-13] MEDS: Vancomycin 1,500 MG in D5% in Water 250 ML IVPB SCH (06:06)
[2017-07-13] MEDS: *HR* Heparin 5,000 UNIT/ML VIAL SQ SCH (06:07)
[2017-07-13 07:44] VITALS: BP 99/53
[2017-07-13] MEDS: predniSONE 20 MG TABLET PO SCH (09:08)
[2017-07-13] MEDS ORDERED: levoFLOXacin 750 MG TABLET PO SCH (09:45)
--- NOTE | 2017-07-13 09:48 | Pulmonology Progress Note ---
Date of Encounter: 07/13/17 Time of Encounter: 09:46 Assessment and Plan (1) Acute respiratory failure with hypoxia Current Visit: Yes Status: Acute This is secondary to pneumonia option requirements have come down dramatically likely can be weaned off the nasal cannula she will need a walking pulse ox study prior to discharge (2) Community acquired pneumonia Current Visit: Yes Status: Acute Multifocal infiltrate status post bronchoscopy without untoward effect. Cultures thus far negative de-escalate antimicrobials to respiratory fluoroquinolone to complete 7 day course She will need repeat CT scan in 4-6 weeks with pulmonary follow-up at that time I gave the patient my card please try to have this scheduled at the time of discharge with the scheduling service Qualifiers: Laterality: unspecified laterality Qualified Code(s): J18.9 - Pneumonia, unspecified organism (3) Severe sepsis Current Visit: Yes Status: Acute This secondary to pneumonia and has resolved (4) Sleep-disordered breathing Current Visit: Yes Status: Acute Concern for sleep-disordered breathing given body habitus and symptomatology she will need outpatient polysomnogram Pulmonary we will sign off please call with any questions Subjective Principal diagnosis: Pneumonia Interval history: She states that she feels much better today she was started on prednisone yesterday remains afebrile breathing much easier Objective PUL Vital signs: Last Vital Signs Temp 97.8 F 07/13/17 07:42 Pulse 87 07/13/17 07:42 Resp 14 07/13/17 07:42 BP 99/53 07/13/17 07:42 Pulse Ox 97 07/13/17 07:42 General appearance: no acute distress Auscultation: bilateral: diminished breath sounds (Primarily in lung bases) Cardiovascular: regular rate and rhythm Gastrointestinal: soft, non-tender Extremities: no edema non-focal exam Results - Laboratory Findings CBC and BMP: 07/13/17 04:26 07/13/17 04:26 PT/INR, D-dimer D-Dimer 4959 ng/mLFEU (0-500) H 07/09/17 22:00 Abnormal lab findings: Abnormal lab results WBC 13.5 K/mcL (4.3-11.1) H 07/13/17 04:26 RBC 3.69 M/mcL (3.82-4.97) L 07/13/17 04:26 Hgb 11.0 g/dL (11.5-15.4) L 07/13/17 04:26 Hct 32.6 % (35.3-44.9) L 07/13/17 04:26 MPV 8.9 fL (9.4-12.4) L 07/13/17 04:26 Band Neutrophils % 24.0 % (0-4) H 07/09/17 22:00 Neutrophils # 11.6 K/mcL (1.6-8.9) H 07/11/17 04:33 Toxic Granulation Present (Not Present) A 07/09/17 22:00 D-Dimer 4959 ng/mLFEU (0-500) H 07/09/17 22:00 BUN 6 mg/dL (7-20) L 07/13/17 04:26 C-Reactive Protein 136 mg/L (Less than 5) H 07/11/17 12:20 Serum Total Protein 5.8 g/dL (6.0-8.3) L 07/10/17 05:02 Albumin 2.6 g/dL (3.5-5.0) L 07/10/17 05:02 Albumin/Globulin Ratio 0.8 (1.1-2.2) L 07/10/17 05:02 Fluid Appearance Slightly Hazy (Clear) A 07/12/17 10:29 Urine Opiates Screen Positive ng/mL ([id number]=635) H 07/12/17 01:00 U Benzodiazepines Scrn Positive ng/mL (Jgzoxi=951) H 07/12/17 01:00 - Microbiology Findings Microbiology Findings: Microbiology, Last 48 Hours 07/12/17 10:29 Gram Stain - Final Right Middle Lobe Lung 07/12/17 01:00 Legionella Antigen - Final Urine,Clean Catch Streptococcus pneumoniae Antigen (M - Final - Clinical Findings Intake & Output: Intake & Output 07/12/17 07/13/17 07/13/17 23:59 07:59 15:59 Intake Total 1270 / 1270 400 / 400 Output Total 0 / 0 1100 / 1100 Balance 1270 / 1270 -700 / -700 Weight 105.3 kg Consult Discharge Plan - Plan Referrals: NONE,PCP [Primary Care Provider] -
--- NOTE | 2017-07-13 10:29 | Discharge Summary ---
<Zaire Krishnan Last Filed: 07/13/17 11:36> Date of Encounter: 07/13/17 Time of Encounter: 10:23 - Discharge Diagnosis (1) Community acquired pneumonia Priority: Primary Status: Acute Qualifiers: Laterality: unspecified laterality Qualified Code(s): J18.9 - Pneumonia, unspecified organism (2) Severe sepsis Priority: Secondary Status: Resolved (3) Acute respiratory failure with hypoxia Priority: Secondary Status: Acute (4) DVT prophylaxis Priority: Secondary Status: Acute - Discharge Medications Prescriptions: Albuterol Neb [Proventil Neb] 2.5 mg IH [id number] PRN #1 inhsol PRN Reason: Shortness Of Breath/Wheezing Benzonatate [Tessalon] 100 mg PO TID #90 capsule Lactobacillus Acidophilus [Acidophilus Lactobacilli] 1 each PO DAILY #30 capsule levoFLOXacin [Levaquin] 750 mg PO DAILY #4 tablet predniSONE [PredniSONE] 40 mg PO DAILY #6 tablet Home Medications: Acetaminophen [Tylenol] 650 mg PO Q6HR PRN 07/13/17 [History] Albuterol Neb [Proventil Neb] 2.5 mg IH [id number] PRN #1 inhsol 07/13/17 [Rx] Benzonatate [Tessalon] 100 mg PO TID #90 capsule 07/13/17 [Rx] Cyclobenzaprine [Flexeril] 10 mg PO HS PRN 07/13/17 [History] Lactobacillus Acidophilus [Acidophilus Lactobacilli] 1 each PO DAILY #30 capsule 07/13/17 [Rx] levoFLOXacin [Levaquin] 750 mg PO DAILY #4 tablet 07/13/17 [Rx] predniSONE [PredniSONE] 40 mg PO DAILY #6 tablet 07/13/17 [Rx] Allergies/Adverse Reactions: 3 Allergy/AdvReac Type Severity Reaction Status Date / Time No Known Allergies Allergy Verified 01/23/17 23:40 Date of admission: 07/10/17 03:55 Primary care physician: PCP NONE Consults: 07/11/17 09:40 Consult to Pulmonology [CONS] Routine Consulting Provider: [facility] Reason for Consult: Not responding to initial antibiotic treatment, negative respiratory panel. Unable to obtain sputum culture yet. Time Notified: 09:42 Call Completed: Yes Discharging clinician: Zaire Krishnan Anticipated date of discharge: 07/13/17 - Patient Status Disposition: Home, Self-Care Condition: Good Functional capacity at discharge: independent ambulation Overall status at discharge: patient is progressing back to baseline - Ambulatory Orders Ambulatory Orders: CT chest wo con [CT] Time Frame: 4 Weeks, Facility: [facility], Location: Radiology - Discharge Instructions Instructions: Benzonatate (By mouth), Albuterol (By breathing), Prednisone (By mouth), Levofloxacin (By mouth), Community-acquired Pneumonia (DC) Follow Up With: Zaire Krishnan DO [Resident] - Warren Goff MD [Partnered Physician] - (Follow-up in 4-[address]) Additional Instructions: Take your medications as prescribed Complete 4 more days of Levaquin (antibiotic) Complete 3 more days of Prednisone Use albuterol inhaler as needed for shortness of breath Follow-up with your PCP Follow-up with Dr. Goff in 4-6 weeks Get a Chest CT done in 4 weeks to insure resolution of pneumonia Return to the hospital if your symptoms return or worsen - Diet and Activity Activity: increase activity as tolerated Diet: advance to your usual diet Interval History: Pt seen and examined. Reports that she is feeling much better today. Her breathing and her myalgias are improving. Denies syncope, light-headedness, chest pain, N/V/D/C, dysuria, or leg pain/edema. Hospital course: Ms. Partida is a 41 year old female with no past medical history presented with dyspnea, pleuritic chest pain, cough, chills, and fever meeting sepsis criteria. She was diagnosed with multi-focal community acquired pneumonia on Chest CTA and started on vancomycin, rocephin, zithromax, and tamiflu. She remained tachycardic and tachypnic, so antibiotics were changed to levaquin and cefepime, vancomycin was continued. Blood cultures have shown no growth. Respiratory panel PCR was negative. Tamiflu was discontinued. Pulmonology was consulted and ordered further inflammatory studies with pending results. Bronchoscopy was conducted and indicated pneumonia. Cultures have shown no growth to date. Pulmonology recommended to de-escalate antibiotics to complete a 7 day course of Levaquin and a 5 day course of prednisone. The patient showed clinical improvement. She is hemodynamically stable and will be discharged home with follow-up with her PCP and Pulmonology. She is to have a repeat chest CT for resolution of her pneumonia in 4 weeks. - Time Spent with Patient Total time spent providing and/or coordinating discharge services: Greater than 30 minutes - Constitutional Vitals: Temp Pulse Resp BP Pulse Ox 97.8 F 87 14 99/53 97 07/13/17 07:42 07/13/17 07:42 07/13/17 09:55 07/13/17 07:42 07/13/17 09:55 General appearance: Present: cooperative, mild distress, A&O X 3, answers questions appropriately - Head Head exam: Present: atraumatic, normocephalic - Eye Eye exam: Present: conjuntiva pink, sclera anicteric - Neck Neck exam general surgery: Present: supple, trachea midline. Absent: lymphadenopathy - Respiratory Respiratory exam: Present: decreased breath sounds, rales. Absent: accessory muscle use, rhonchi, wheezes - Cardiovascular Cardiovascular exam: Present: RRR, +S1, +S2. Absent: diastolic murmur, systolic murmur - GI/Abdominal GI/Abdominal exam: Present: normal bowel sounds, soft, no peritoneal signs. Absent: distended, tenderness - Extremities Exam Extremities exam: Present: warm, radial pulses palpable and symmetrical. Absent : calf tenderness, cyanotic, pedal edema - Neurological Exam Neurological exam: Present: CN II-XII intact, oriented X3, no focal deficits. Absent: facial droop, speech deficit - Skin Skin exam: Present: dry, intact <Sabrina Baptiste - Last Filed: 07/13/17 12:09> Date of Encounter: 07/13/17 Date of admission: 07/10/17 03:55 Primary care physician: PCP NONE Consults: 07/11/17 09:40 Consult to Pulmonology [CONS] Routine Consulting Provider: [facility] Reason for Consult: Not responding to initial antibiotic treatment, negative respiratory panel. Unable to obtain sputum culture yet. Time Notified: 09:42 Call Completed: Yes Hospital course: Ms. Partida is a 41 year old female - Time Spent with Patient Total time spent providing and/or coordinating discharge services: - Constitutional Vitals: Temp Pulse Resp BP Pulse Ox 97.8 F 87 14 99/53 97 07/13/17 07:42 07/13/17 07:42 07/13/17 09:55 07/13/17 07:42 07/13/17 09:55 - Attending Attestation I have seen and examined the patient independently. I have discussed with resident physician Dr Krishnan regarding the management plan. Agree with the documentation. Patient admitted for community-acquired pneumonia. Improved after treatment. No need of oxygen per home oxygen evaluation. We will discharge patient home with by mouth Levaquin. Follow-up with PCP and marketing lead as outpatient.
[2017-07-13 15:05] LABS: ANA IgG by ELISA NONE DETECTED (None Detected)
[2017-07-14 18:49] LABS: RVP Body Fluid Source BAL RML
[2017-07-15 07:53] LABS: Myeloperoxidase Ab 0 AU/mL (0-19); Serine Protease-3 Antibody 0 AU/mL (0-19)
[2017-07-15 08:04] LABS: Influenza A PCR Body Fluid NOT DETECTED; Influenza B PCR Body Fluid NOT DETECTED; RSV PCR Body Fluid NOT DETECTED
[2017-07-15 14:03] LABS: HSV Source BAL RML
== END 2017-07-13 12:49 | disposition home or self-care (01) | DRG 720 ==
LOC: EMEROO 21:27 → 2NENU 21:27 → SUATTDRO 07-10 03:55
PROVIDERS: ADMIT Internal Medicine; ATTEND Internal Medicine
PROC: ENDOBRF (2017-07-12 09:00)